=== PATIENT | male | born 1970 | race Caucasian/White ===

== ENCOUNTER 2017-05-02 21:14 | Emergency (ER) | payer OTHER ==
[~2017-05-02] VITALS: Ht 190.5 cm; Wt 134.2 kg
[2017-05-02 21:23] VITALS: TEMP 36.5; Ht 190.5 cm; Wt 134.2 kg
[2017-05-02 22:29] LABS: ALBUMIN 4.2 gm/dl (3.4-5.0); CALCIUM 9.1 mg/dl (8.5-10.1); CREATININE 1.36 mg/dl (0.60-1.40); POTASSIUM 3.9 mmol/L (3.5-5.1)
[2017-05-02 22:35] LABS: TOTAL PROTEIN 8.4 gm/dl (6.4-8.2)
[2017-05-02 22:50] LABS: HEMATOCRIT 47.3 % (42-52); HEMOGLOBIN 16.4 g/dL (14.0-18.0); MEAN CELL VOLUME 85.4 fL (80-100); MEAN CORPUSCULAR HEMOGLOBIN 29.6 pg (25-34); MEAN CORPUSCULAR HGB CONC 34.7 g/dl (32-36); MEAN PLATELET VOLUME 10.5 fL (7.4-10.4); PLATELET COUNT 57 K/uL (130-400); RED CELL DISTRIBUTION WIDTH CV 13.9 % (11.5-14.5); RED CELL DISTRIBUTION WIDTH SD 42.7 fL (36.4-46.3); WHITE BLOOD COUNT 3.83 K/uL (4.8-10.8)
--- NOTE | 2017-05-02 22:59 | DIAGNOSTIC IMAGING REPORT ---
ABDOMINAL WALL ULTRASOUND CLINICAL HISTORY: Umbilical mass. Possible hernia COMPARISON STUDY: No previous studies for comparison. FINDINGS: Ultrasonographic evaluation reveals a large umbilical hernia with a neck measuring 2.6 cm. There is fluid present within the hernia sac. No peristalsis within the hernia sac was visualized. There were however tubular structures raising the possibility that this hernia contains bowel. CT scanning might be considered in follow-up. IMPRESSION: 1. Large umbilical hernia with a neck measuring 2.6 cm 2. It is difficult to determine the hernia contains only fat or fat and bowel. 3. There is a small amount of fluid within the hernia sac 4. CT scanning could be used to differentiate a fat-containing hernia from a bowel containing hernia. Electronically signed by: Jay Liao M.D. 05/02/2017 10:57 PM Dictated Date/Time: 05/02/2017 10:55 PM
[2017-05-02] MEDS ORDERED: OMEP20TA PO (23:24)
[2017-05-02] MEDS ORDERED: OPTIRAY 320 IV PRN (23:30)
[2017-05-03 01:07] VITALS: BP 151/86; PULSE 68; O2SAT 97
--- NOTE | 2017-05-03 03:32 | EMERGENCY ROOM VISIT NOTE ---
History First contact with patient: 21:31 Chief Complaint: ABDOMINAL PAIN Stated Complaint: STOMACH AND BELLY BUTTON HARD AND PAINFUL Nursing Triage Summary: Pt states around 630pm he was laying down and he got a pain in his belly button. When he sat up he noticed his belly button felt hard. Continues to have pain around umbilicus. History of Present Illness The patient is a 47 year old male who presents to the Emergency Room with complaints of periumbilical pain and bulge tonight after he was lying on his belly and got up. No history of hernias that he knows of. Patient states he does not normally have a bulge to his umbilicus. He describes the pain as aching, ranging in severity 7 out of 10 with palpation and better with rest. Patient denies chest pain, dyspnea, fever, chills, nausea, vomiting, diarrhea, flank pain, back pain, urinary symptoms, genitalia pain. No prior abdominal surgeries. Patient does a lot of heavy lifting at work. Review of Systems An 10 system review of systems was completed with positives and pertinent negatives listed in the HPI. Past Medical/Surgical History Hypertension Social History Smoking Status: Never Smoker Smokeless Tobacco Use: No Drug Use: none Marital Status: in relationship Occupation Status: employed Current/Historical Medications Scheduled PRN Omeprazole (Omeprazole), 1 TAB PO DAILY PRN for Heartburn Physical Exam Vital Signs Date Time Temp Pulse Resp B/P (MAP) Pulse Ox O2 Delivery O2 Flow Rate FiO2 05/03/17 01:07 68 18 151/86 97 05/02/17 23:44 73 16 143/90 96 Room Air 05/02/17 21:59 71 05/02/17 21:56 90 18 145/89 98 Room Air 05/02/17 21:23 36.5 81 18 170/116 98 Room Air Physical Exam VITALS: Vitals are noted on the nurse's note and reviewed by myself. Vital signs hypertensive. GENERAL: Pleasant male, in no acute distress, nondiaphoretic, well-developed well-nourished. SKIN: The skin was without rashes, erythema, edema, or bruising. There is no tenting of the skin. Capillary reflex less than 2 seconds. HEAD: Normocephalic atraumatic. EARS: External auditory canals clear, tympanic membranes pearly bautista without erythema or effusion bilaterally. EYES: Pupils equal round and reactive to light and accommodation. Conjunctivae without injection, sclerae without icterus. Extraocular movements intact. NOSE: Patent, turbinates without inflammation or discharge. MOUTH: Mucous membranes moist. Pharynx without erythema or exudate. Uvula midline. Airway patent. Tongue does not deviate. NECK: Supple without nuchal rigidity. No lymphadenopathy. No thyromegaly. Cervical spine is nontender. No JVD. HEART: Regular rate and rhythm without murmurs gallops or rubs. LUNGS: Clear to auscultation bilaterally without wheezes, rales or rhonchi. No retractions or accessory muscle use. ABDOMEN: Positive bowel sounds x 4. Normal tympanic percussion. Soft, umbilical hernia present easily reduced with gentle pressure by myself that is tender to palpation, without masses or organomegaly. Gunter sign negative. No guarding or rebound tenderness. No CVA tenderness MUSCULOSKELETAL: No muscle atrophy, erythema, or edema noted. NEURO: Patient was alert and oriented to person place and time. Normal sensation to light and sharp touch. No focal neurological deficits. Medical Decision & Procedures Laboratory Results 05/02/17 21:50 Red Blood Count 5.54, Mean Corpuscular Volume 85.4, Mean Corpuscular Hemoglobin 29.6, Mean Corpuscular Hemoglobin Concent 34.7, Mean Platelet Volume 10.5 05/02/17 21:50 Test 05/02/17 21:50 White Blood Count 3.83 K/uL (4.8-10.8) Red Blood Count 5.54 M/uL (4.7-6.1) Hemoglobin 16.4 g/dL (14.0-18.0) Hematocrit 47.3 % (42-52) Mean Corpuscular Volume 85.4 fL (80-100) Mean Corpuscular Hemoglobin 29.6 pg (25-34) Mean Corpuscular Hemoglobin Concent 34.7 g/dl (32-36) Platelet Count 57 K/uL (130-400) Mean Platelet Volume 10.5 fL (7.4-10.4) RDW Standard Deviation 42.7 fL (36.4-46.3) RDW Coefficient of Variation 13.9 % (11.5-14.5) Neutrophils % (Manual) 68.8 % Lymphocytes % (Manual) 11.3 % Variant Lymphocytes % (manual) 5.2 % Monocytes % (Manual) 8.7 % Eosinophils % (Manual) 1.7 % Basophils % (Manual) 1.7 % (0-2) Myelocytes % 0.9 % Blast Cells % 1.7 % Neutrophils # (Manual) 2.64 K/uL (1.4-6.5) Total Absolute Neutrophils 2.64 K/uL (1.4-6.5) Lymphocytes # (Manual) 0.43 K/uL (1.2-3.4) Absolute Variant Lymphocytes 0.20 K/uL Total Absolute Lymphocytes 0.63 K/uL (1.2-3.4) Monocytes # (Manual) 0.33 K/uL (0.11-0.59) Eosinophils # (Manual) 0.07 K/uL (0-0.5) Basophils # (Manual) 0.07 K/uL (0-0.2) Myelocytes # 0.03 K/uL (0-0) Blast Cells # 0.07 K/uL (0-0) Platelet Estimate DECREASED Anion Gap 7.0 mmol/L (3-11) Est Creatinine Clear Calc Drug Dose 97.0 ml/min Estimated GFR () 70.3 Estimated GFR (Non- 60.7 BUN/Creatinine Ratio 11.5 (10-20) Calcium Level 9.1 mg/dl (8.5-10.1) Total Bilirubin 1.0 mg/dl (0.2-1) Direct Bilirubin 0.3 mg/dl (0-0.2) Aspartate Amino Transf (AST/SGOT) 67 U/L (15-37) Alanine Aminotransferase (ALT/SGPT) 68 U/L (12-78) Alkaline Phosphatase 74 U/L (45-117) Total Protein 8.4 gm/dl (6.4-8.2) Albumin 4.2 gm/dl (3.4-5.0) Lipase 241 U/L (73-393) ED Course Prior records/ancillary studies reviewed. Triage Nursing notes reviewed. The patient's history was concerning for abdominal pain. Differential diagnosis: Etiologies such as hernia, incarcerated hernia, strain related hernia, appendicitis, diverticulitis, PUD, biliary pathology, UTI, pancreatitis, obstruction, mesenteric ischemia, aortic pathology, infections, inflammatory bowel disease, renal colic, as well as others were entertained. Physical examination findings: As above. ER treatment provided: Hernia was reduced with gentle pressure to the umbilicus region. On reassessment the patient felt better. Diagnostics interpreted by me: The labs revealed stable H&H, thrombocytopenia, blast cells present. No worrisome electrolyte abnormality Imaging studies: CT showed fat filled ventral hernia. splenomegaly and this is read by stat radiology and reviewed by myself [~ rep ct add3]] ABDOMINAL WALL ULTRASOUND CLINICAL HISTORY: Umbilical mass. Possible hernia COMPARISON STUDY: No previous studies for comparison. FINDINGS: Ultrasonographic evaluation reveals a large umbilical hernia with a neck measuring 2.6 cm. There is fluid present within the hernia sac. No peristalsis within the hernia sac was visualized. There were however tubular structures raising the possibility that this hernia contains bowel. CT scanning might be considered in follow-up. IMPRESSION: 1. Large umbilical hernia with a neck measuring 2.6 cm 2. It is difficult to determine the hernia contains only fat or fat and bowel. 3. There is a small amount of fluid within the hernia sac 4. CT scanning could be used to differentiate a fat-containing hernia from a bowel containing hernia. Electronically signed by: Jay Liao M.D. Exam and history seem consistent with umbilical hernia and thrombocytopenia with abnormal smear/ differentiation on CBC. Patient's last CBC was in 2008 that showed thrombocytopenia of 97,000. This is reviewed in the [employer] system. Patient has no known history of cancer. Patient was strongly encouraged and informed to get a bone marrow biopsy for further evaluation workup for his thrombocytopenia and blast cells seen on his CBC tonight that was concerning for possible cancer. Case management will help facilitate follow -up appointment within the next day or 2 with family care for referral to the associate professor of physics. Patient was agreeable treatment plan. He was also encouraged no heavy lifting and to follow-up with surgery for his hernia that was present. Patient was given a work note to avoid heavy lifting. Patient has no known bleeding disorders. He denies excessive alcohol use. No drug use. He did not have an acute abdomen on exam. By the evaluation outlined above emergent etiologies such as appendicitis, diverticulitis, PUD, biliary pathology, UTI, pancreatitis, obstruction, mesenteric ischemia, aortic pathology, infections, inflammatory bowel disease, renal colic, as well as others were deemed relatively unlikely. The pt informed about the findings as listed above. All questions were answered and pleased with the treatment. Return instructions were outlined and the patient was discharged in stable condition. Case reviewed with my attending Referral: The patient was referred back to their primary care physician for follow-up in 24-48 hrs. for a recheck of the current condition. The chart was completed utilizing [employer] Speech voice recognition software. Grammatical errors, random word insertions, pronoun errors, and incomplete sentences are an occassional consequence of this system due to software limitations, ambient noise, and hardware issues. Any formal questions or concerns about the content, text, or information contained within the body of this dictation should be directly addressed to the physician executive marketing assistant for clarification. Medical Decision As above Medication Reconcilliation Current Medication List: was personally reviewed by me Blood Pressure Screening Patient's blood pressure: Elevated blood pressure Blood pressure disposition: Elevated BP felt to be situational Impression Primary Impression: Thrombocytopenia Additional Impression: Ventral hernia Departure Information Dispostion Home / Self-Care Condition GOOD Forms Call Back Authorization, HOME CARE DOCUMENTATION FORM, Work Instructions, Return To Work: 1 day Additional Instructions: Recommend no heavy lifting greater than 20 pounds For the next 2 weeks. IMPORTANT VISIT INFORMATION Patient Instructions Hernia, [facility], Bone Marrow Aspiration and Biopsy Additional Instructions Abdominal wall hernia: Recommend that you do not lift anything heavier than 20 pounds with your hernia present. Recommend you follow-up with the surgeon for further evaluation and treatment for your abdominal wall hernia. Platelets: Your platelet counts are low and you have abnormal cells on your CBC/blood test today. You need to get a bone marrow biopsy. Your family care doctor can help facilitate this. Case management will help facilitate your appointment within the next day or 2 with family care to get a referral to the associate professor of physics. Follow-up with family care in 1-2 days. Return to ER sooner for abdominal pain, fevers, bleeding, worsening signs or symptoms or as needed. Work Instructions Return To Work: 1 day Additional Work Instructions: Recommend no heavy lifting greater than 20 pounds For the next 2 weeks. Problem Qualifiers
--- NOTE | 2017-05-03 07:16 | DIAGNOSTIC IMAGING REPORT ---
CT SCAN OF THE ABDOMEN AND PELVIS WITH IV CONTRAST CLINICAL HISTORY: Generalized abdominal pain. Umbilical hernia. COMPARISON STUDY: Ultrasound of the abdominal wall dated 05/02/2017. TECHNIQUE: Following the IV administration of 93 cc of Optiray 320, CT scan of the abdomen and pelvis is performed from the lung bases to the proximal femora. Images are reviewed in the axial, sagittal, and coronal planes. IV contrast was administered without complication. A dose lowering technique was utilized adhering to the principles of ALARA. CT DOSE: 1504.64 mGy.cm FINDINGS: Lung bases: The heart is normal in size and without pericardial effusion. A small calcified granuloma is seen in the right upper lobe. The lung bases are otherwise clear noting dependent atelectasis. There is a tiny hiatal hernia. Small esophageal varices are suspected. Liver: The contrast-enhanced liver is enlarged, measuring 23.8 cm in length. Liver demonstrates diffusely diminished attenuation consistent with hepatic steatosis. There is no intrahepatic biliary ductal dilatation. The hepatic veins and portal veins are patent. Gallbladder: Unremarkable. Spleen: The spleen is markedly enlarged, measuring 21.3 cm in length. There are perisplenic varices. Pancreas: Unremarkable. Adrenal glands: Unremarkable. Kidneys: The contrast enhanced kidneys demonstrate cortical atrophy and are without hydronephrosis. The kidneys enhance symmetrically. Scattered subcentimeter cortical hypodensities likely represent cysts but are too small for definitive characterization. Abdominal vasculature: The abdominal aorta is normal in course and caliber. Bowel: No bowel obstruction is seen. The appendix is normal as visualized. Peritoneum: There is no intraperitoneal free air or abdominal ascites. There is a large fat-containing umbilical hernia. Lymphadenopathy: None. Pelvic viscera: The bladder, prostate, and seminal vesicles are normal as visualized. Skeletal structures: No lytic or blastic lesions are seen. IMPRESSION: 1. There is a large fat-containing umbilical hernia. No bowel is contained within the hernia sac. 2. Marked splenomegaly. 3. Hepatomegaly and hepatic steatosis. 4. There are perisplenic varices, as well as tiny esophageal varices. Electronically signed by: Ross Rae M.D. 05/03/2017 7:14 AM Dictated Date/Time: 05/03/2017 7:07 AM
== END 2017-05-03 01:09 | disposition home or self-care (01) ==
LOC: C.EDB 21:15 → C.EDC 05-03 01:09
DX: D69.6 Thrombocytopenia, unspecified (principal); K43.9 Ventral hernia without obstruction or gangrene; I10 Essential (primary) hypertension; Z79.899 Other long term (current) drug therapy

== ENCOUNTER 2017-05-10 00:18 | Emergency (ER) | payer OTHER ==
[~2017-05-10] VITALS: Ht 190.5 cm; Wt 133.5 kg
[~2017-05-10 00:18] MED LIST: OMEP20TA PO
[2017-05-10 00:29] VITALS: Ht 190.5 cm; Wt 133.5 kg
[2017-05-10] MEDS ORDERED: b/p med PO (00:48)
[2017-05-10] MEDS ORDERED: ONDANSETRON INJ 2 MG/ML 2 ML VIAL IV STA (00:52)
[2017-05-10] MEDS ORDERED: SODIUM CHLORIDE 0.9% 1000ML 1,000 ML IV STA (00:52)
[2017-05-10 01:03] LABS: HEMATOCRIT 50.9 % (42-52); HEMOGLOBIN 18.3 g/dL (14.0-18.0); MEAN CORPUSCULAR HEMOGLOBIN 30.6 pg (25-34); RED CELL DISTRIBUTION WIDTH CV 14.2 % (11.5-14.5); RED CELL DISTRIBUTION WIDTH SD 43.1 fL (36.4-46.3)
[2017-05-10 01:08] VITALS: TEMP 36.8
[2017-05-10 01:16] LABS: ALBUMIN 4.6 gm/dl (3.4-5.0); CALCIUM 9.8 mg/dl (8.5-10.1); CREATININE 1.51 mg/dl (0.60-1.40); POTASSIUM 3.6 mmol/L (3.5-5.1)
[2017-05-10 01:18] LABS: TOTAL PROTEIN 9.3 gm/dl (6.4-8.2)
--- NOTE | 2017-05-10 01:20 | EMERGENCY ROOM VISIT NOTE ---
History Report prepared by Jazmín: Diamond Baig Under the Supervision of: Dr. Abiel Navarrete M.D. First contact with patient: 00:47 Chief Complaint: ABDOMINAL PAIN Stated Complaint: STOMACH,HERNIA FROM LAST WEEK History of Present Illness The patient is a 47 year old male who presents to the Emergency Room with complaints of worsening abdominal pain starting prior to arrival. The patient states that he was here last week with an enlarged spleen, a low platelet count , and a umbilical hernia. He reports that he has been doing okay, but this afternoon he coughed and his belly button got hard again. He states that he was in moderate pain, but was fine. He reports that he laid down to go to sleep tonight and couldn't. He states that when he got up, he had extreme pain. The patient complains of vomiting when he arrived at the ED. The patient denies the use of alcohol, swelling in his legs, rashes, and bruising. Source of History: patient Onset: prior to arrival Position: abdomen Symptom Intensity: extreme Quality: other (hard) Timing: worsening Associated Symptoms: + vomiting, No rash Note: The patient denies leg swelling and bruising. Review of Systems See HPI for pertinent positives & negatives. A total of 10 systems reviewed and were otherwise negative. Past Medical & Surgical Medical Problems: (1) HTN (hypertension) (2) Umbilical hernia Family History Patient reports no known family medical history. Social History Smoking Status: Never Smoker Drug Use: none Marital Status: in relationship Housing Status: lives alone Occupation Status: employed Current/Historical Medications Scheduled [b/p med], 1 DOSE PO DIRECTED Scheduled PRN Omeprazole (Omeprazole), 1 TAB PO DAILY PRN for Heartburn Allergies Coded Allergies: Amoxicillin (Verified Allergy, Intermediate, RASH, 05/10/17) Physical Exam Vital Signs Date Time Temp Pulse Resp B/P (MAP) Pulse Ox O2 Delivery O2 Flow Rate FiO2 05/10/17 03:42 88 18 128/71 97 05/10/17 02:08 82 18 134/84 96 Room Air 05/10/17 01:08 36.8 71 18 143/89 93 Room Air 05/10/17 00:29 99 19 165/116 96 Room Air Physical Exam GENERAL: Patient is nauseous appearing and in mild distress. Uncomfortable appearing. EYES: No scleral icterus, unremarkable pupils. ENT: Mucous membranes moist, no nasal congestion. NECK: No masses appreciated, no meningismus, trachea is midline. RESPIRATORY: No dyspnea. Clear to auscultation and equal bilaterally. No wheeze , no rhonchi. CARDIOVASCULAR: Regular rate and rhythm. No murmurs, rubs, gallops appreciated. GASTROINTESTINAL: Abdomen soft, nontender, no peritonitis. Bowel sounds positive. No masses appreciated. Moderate umbilical hernia which was easily reduced. No erythema, no crepitus. BACK: No midline tenderness, no CVA tenderness EXTREMITIES: Normal motion all extremities, no cyanosis, no edema. NEUROLOGIC: Alert and oriented, no acute motor or sensory deficits, no focal weakness, cranial nerves grossly intact. SKIN: No rash, no jaundice, no diaphoresis. Medical Decision & Procedures ER Provider Diagnostic Interpretation: Radiology results and stated below per my review and radiologist interpretation: 3 VIEW ABDOMINAL OBSTRUCTION SERIES: The results were interpreted by me. Dilated loop of small bowel in mid-left abdomen. No free air appreciated. CT ABDOMEN & PELVIS With Contrast: Large fat-containing umbilical hernia. no bowel is seen within the hernia sac. No bowel obstruction. Mildly distended loops of small bowel which are fluid-filled and slightly hyperemic. Likely represents gastroenteritis. Appendix is normal. No bowel wall thickening. Radiologist: Michael Patten MD Study ready at 02:10 and initial results transmitted at 02:12. Laboratory Results 05/10/17 00:45 Red Blood Count 5.99, Mean Corpuscular Volume 85.0, Mean Corpuscular Hemoglobin 30.6, Mean Corpuscular Hemoglobin Concent 36.0, Mean Platelet Volume 10.3, Neutrophils (%) (Auto) 69.4, Lymphocytes (%) (Auto) 20.7, Monocytes (%) (Auto) 5.3, Eosinophils (%) (Auto) 3.1, Basophils (%) (Auto) 0.9, Neutrophils # (Auto) 4.86, Lymphocytes # (Auto) 1.45, Monocytes # (Auto) 0.37, Eosinophils # (Auto) 0.22, Basophils # (Auto) 0.06 05/10/17 00:45 Test 05/10/17 00:30 05/10/17 00:45 Urine Color DK YELLOW Urine Appearance CLEAR (CLEAR) Urine pH 7.0 (4.5-7.5) Urine Specific [place] 1.024 (1.000-1.030) Urine Protein NEG (NEG) Urine Glucose (UA) NEG (NEG) Urine Ketones NEG (NEG) Urine Occult Blood NEG (NEG) Urine Nitrite NEG (NEG) Urine Bilirubin NEG (NEG) Urine Urobilinogen NEG (NEG) Urine Leukocyte Esterase NEG (NEG) Urine WBC (Auto) 1-5 /hpf (0-5) Urine RBC (Auto) 0-4 /hpf (0-4) Urine Hyaline Casts (Auto) 1-5 /lpf (0-5) Urine Epithelial Cells (Auto) 5-10 /lpf (0-5) Urine Bacteria (Auto) NEG (NEG) White Blood Count 7.00 K/uL (4.8-10.8) Red Blood Count 5.99 M/uL (4.7-6.1) Hemoglobin 18.3 g/dL (14.0-18.0) Hematocrit 50.9 % (42-52) Mean Corpuscular Volume 85.0 fL (80-100) Mean Corpuscular Hemoglobin 30.6 pg (25-34) Mean Corpuscular Hemoglobin Concent 36.0 g/dl (32-36) Platelet Count 83 K/uL (130-400) Mean Platelet Volume 10.3 fL (7.4-10.4) Neutrophils (%) (Auto) 69.4 % Lymphocytes (%) (Auto) 20.7 % Monocytes (%) (Auto) 5.3 % Eosinophils (%) (Auto) 3.1 % Basophils (%) (Auto) 0.9 % Neutrophils # (Auto) 4.86 K/uL (1.4-6.5) Lymphocytes # (Auto) 1.45 K/uL (1.2-3.4) Monocytes # (Auto) 0.37 K/uL (0.11-0.59) Eosinophils # (Auto) 0.22 K/uL (0-0.5) Basophils # (Auto) 0.06 K/uL (0-0.2) RDW Standard Deviation 43.1 fL (36.4-46.3) RDW Coefficient of Variation 14.2 % (11.5-14.5) Immature Granulocyte % (Auto) 0.6 % Immature Granulocyte # (Auto) 0.04 K/uL (0.00-0.02) Platelet Estimate DECREASED Red Blood Cell Morphology Unremarkable Anion Gap 7.0 mmol/L (3-11) Est Creatinine Clear Calc Drug Dose 87.1 ml/min Estimated GFR () 62.0 Estimated GFR (Non- 53.5 BUN/Creatinine Ratio 11.1 (10-20) Calcium Level 9.8 mg/dl (8.5-10.1) Total Bilirubin 1.5 mg/dl (0.2-1) Direct Bilirubin 0.3 mg/dl (0-0.2) Aspartate Amino Transf (AST/SGOT) 61 U/L (15-37) Alanine Aminotransferase (ALT/SGPT) 69 U/L (12-78) Alkaline Phosphatase 86 U/L (45-117) Total Protein 9.3 gm/dl (6.4-8.2) Albumin 4.6 gm/dl (3.4-5.0) Lipase 262 U/L (73-393) Laboratory results as reviewed by me. Medications Administered Medications (Trade) Dose Ordered Sig/Brielle Route Start Time Stop Time Status Last Admin Dose Admin Sodium Chloride 1,000 ml @ 999 mls/hr Q1H1M STAT IV 05/10/17 00:52 05/10/17 01:52 DC 05/10/17 01:06 999 MLS/HR Ondansetron HCl (Zofran Inj) 4 mg NOW STAT IV 05/10/17 00:52 05/10/17 00:53 DC 05/10/17 01:05 4 MG ED Course 0048: The patient was evaluated in room B12B. A complete history and physical exam was performed. 0052: Ordered Zofran Inj 4 mg IV, NSS 1000 ml @ 999 mls/hr IV. 0118: I reevaluated the patient and he is just getting back from x-ray. 0130: I discussed the patient's case with Dr. Azul - General Surgeon. He states that he needs the repeat CT and then they will come look at him. 0134: I reevaluated the patient and he is no longer nauseous. His pain has improved greatly. He is agreeable to the CT. 0230: I discussed the patient's case with Dr. Azul - General Surgeon. He will come evaluate the patient. 0309: Dr. Azul - General Surgery saw the patient and talked to him. He states that the patient would like to go home. I will write the discharge instructions and discharge the patient. 0327: Reevaluated the patient. Discussed results and discharge instructions: He verbalized understanding and agreement. The patient is ready for discharge. 0330: Ordered Ondansetron HCl 1 homepack PO. Medical Decision Differential: Gastroenteritis, Food Borne, Esophageal Perforation, , Electrolyte Abnormality, Dehydration, Intraabdominal Infection, UTI/ Pyelonephritis, Bowel Obstruction, Biliary Pathology, amongst other pathology entertained. 47 yr old male arrives for second time in last week with abdominal pain at sight of umbilicus. On arrival exam and story consistent with obstruction from incarcerated hernia. I was furnately able to reduce hernia with minimal difficulty. Xrays concerning for some dilated bowel and thus discussed with gen surg who advised CT repeat. CT with hyperemic bowel which I feel likely if from recent reduction as prior to this had not been having gastroenteritis symptoms. Reviewed with Gen Surg who evaluated patient and feel this can be continued as an outpatient. Labs with improvement in his Plts though this is still concern for some type of hematopathic issues. He may need to have Hematology evaluation though currently is having PCP run point which seems reasonable. Already following with Gen Surg as outpatient as well. Reviewed findings again with patient, how to reduce hernia at home if possible, symptoms requiring immediate return. He is comfortable with this plan. Aware we are always here if worsening or other concerns. Medication Reconcilliation Current Medication List: was personally reviewed by me Blood Pressure Screening Patient's blood pressure: Normal blood pressure Blood pressure disposition: Did not require urgent referral Consults Time Called: 0129 Consulting Physician: Dr. Azul - General Surgeon Returned Call: 0130 I discussed the patient's case with Dr. Alcantar - General Christopher. He states that he needs the repeat CT and then they will come look at him. Additional Consults: Time Called: 0227 Consulted Physician: Dr. Azul - General Surgeon Returned Call: 0230 Additional Comments: I discussed the patient's case with Dr. Alcantar - General Christopher. He will come evaluate the patient Impression Primary Impression: Umbilical hernia Additional Impression: Thrombocytopenia Scribe Attestation The scribe's documentation has been prepared under my direction and personally reviewed by me in its entirety. I confirm that the note above accurately reflects all work, treatment, procedures, and medical decision making performed by me. Departure Information Dispostion Home / Self-Care Referrals Mikey Blood M.D. (PCP) Forms Call Back Authorization, HOME CARE DOCUMENTATION FORM, IMPORTANT VISIT INFORMATION Patient Instructions My [facility] Additional Instructions You lab work is mildly improved today from previous but it is still concerning that your platelets are low. It is advised you see a Psychologist Educational as an outpatient. Call your PCP in the morning to make sure this is set up as well as to set up urgent outpatient Surgical Evaluation. Return if vomiting, worsening pain, fevers, blood in stool or other concerns. We are always here to help. If Hernia Returns lay flat and while taking a deep breath press gently but firmly on to hernia to return it to place. If severe pain and unable to reduce it return for further evaluation. Problem Qualifiers
[2017-05-10 01:42] LABS: BASO % 0.9 %; BASO ABS # 0.06 K/uL (0-0.2); EOS % 3.1 %; EOS ABS # 0.22 K/uL (0-0.5); IG# 0.04 K/uL (0.00-0.02); LYMPH % 20.7 %; LYMPH ABS # 1.45 K/uL (1.2-3.4); MEAN PLATELET VOLUME 10.3 fL (7.4-10.4); MONO % 5.3 %; MONO ABS # 0.37 K/uL (0.11-0.59); NEUT % 69.4 %; NEUT ABS # 4.86 K/uL (1.4-6.5); PLATELET COUNT 83 K/uL (130-400)
[2017-05-10] MEDS ORDERED: OPTIRAY 320 IV PRN (02:00)
[2017-05-10] MEDS ORDERED: ONDANSETRON HOME PACK 4MG OD TAB PO ONE (03:30)
--- NOTE | 2017-05-10 03:40 | Surgery Consultation ---
Consultation Date of Consultation: May 10, 2017. Attending Physician: Reason for Consultation: umbilical hernia History of Present Illness Patient is a 47M who presents to the ED this evening due to abdominal pain which started around 1800 tonight. Patient reports it got worse around 2300. Reports the pain as sharp and located at his umbilicus. He was seen in the ED here on 05/02/17 for a similar complaint where a large fat containing umbilical hernia was found. He was discharged home with instructions to follow-up with Dr. Sow at [facility] who he saw this past . Of note at his first ED visit he had 57k platelets and low white count with myelocytes and blast cells. Patient denies Hx of leukemia. He does report some nausea/vomiting on arrival to the ED tonight which has since resolved. Denies hematemesis. His hernia was reduced in the ED at this visit. No White count. Platelets improved at 83k. CT shows large fat containing umbilical hernia similar to prior study with mildly distended loops of small bowel, fluid filled , slightly hyperemic. Patient denies fever/chills. He reports he has been fighting off a cold for about a week now. Denies trouble urinating or moving his bowels. Denies use of blood thinning or anticoagulant medications. Denies history of abdominal surgeries. Denies problems with anesthesia in the past. Past Medical/Surgical History Medical Problems: (1) Thrombocytopenia Status: Acute (2) Ventral hernia Status: Acute Family History Patient reports no known family medical history. Social History Smoking Status: Never Smoker Drug Use: none Marital Status: in relationship Housing Status: lives alone Occupation Status: employed Allergies Coded Allergies: Amoxicillin (Verified Allergy, Intermediate, RASH, 05/10/17) Home Medications Scheduled [b/p med], 1 DOSE PO DIRECTED Scheduled PRN Omeprazole (Omeprazole), 1 TAB PO DAILY PRN for Heartburn Current Inpatient Medications Current Inpatient Medications Medications (Trade) Dose Ordered Sig/Brielle Route Start Time Stop Time Status Last Admin Dose Admin Ioversol (Optiray 320) 100 ml UD PRN IV 05/10/17 02:00 05/14/17 01:59 Review of Systems Constitutional: No fever, No chills Respiratory: No shortness of breath Cardiovascular: No chest pain Abdomen: + pain (umbilicus), No nausea, No vomiting, No diarrhea, No constipation Genitourinary - Male: No hematuria, No dysuria Physical Exam Date Time Temp Pulse Resp B/P (MAP) Pulse Ox O2 Delivery O2 Flow Rate FiO2 05/10/17 02:08 82 18 134/84 96 Room Air 05/10/17 01:08 36.8 71 18 143/89 93 Room Air 05/10/17 00:29 99 19 165/116 96 Room Air General Appearance: WD/WN, no apparent distress Head: normocephalic, atraumatic ENT: hearing grossly normal Respiratory/Chest: no respiratory distress, no accessory muscle use Abdomen/GI: soft, no organomegaly, no pulsatile mass, + tenderness (Umbilical TTP mild) Neurologic/Psych: alert, normal mood/affect, oriented x 3 Skin: normal color, warm/dry Laboratory Results Last 24 Hours Test 05/10/17 00:30 05/10/17 00:45 05/10/17 03:18 Urine Color DK YELLOW Urine Appearance CLEAR Urine pH 7.0 Urine Specific [place] 1.024 Urine Protein NEG Urine Glucose (UA) NEG Urine Ketones NEG Urine Occult Blood NEG Urine Nitrite NEG Urine Bilirubin NEG Urine Urobilinogen NEG Urine Leukocyte Esterase NEG Urine WBC (Auto) 1-5 /hpf Urine RBC (Auto) 0-4 /hpf Urine Hyaline Casts (Auto) 1-5 /lpf Urine Epithelial Cells (Auto) 5-10 /lpf Urine Bacteria (Auto) NEG White Blood Count 7.00 K/uL Red Blood Count 5.99 M/uL Hemoglobin 18.3 g/dL Hematocrit 50.9 % Mean Corpuscular Volume 85.0 fL Mean Corpuscular Hemoglobin 30.6 pg Mean Corpuscular Hemoglobin Concent 36.0 g/dl Platelet Count 83 K/uL Mean Platelet Volume 10.3 fL Neutrophils (%) (Auto) 69.4 % Lymphocytes (%) (Auto) 20.7 % Monocytes (%) (Auto) 5.3 % Eosinophils (%) (Auto) 3.1 % Basophils (%) (Auto) 0.9 % Neutrophils # (Auto) 4.86 K/uL Lymphocytes # (Auto) 1.45 K/uL Monocytes # (Auto) 0.37 K/uL Eosinophils # (Auto) 0.22 K/uL Basophils # (Auto) 0.06 K/uL RDW Standard Deviation 43.1 fL RDW Coefficient of Variation 14.2 % Immature Granulocyte % (Auto) 0.6 % Immature Granulocyte # (Auto) 0.04 K/uL Platelet Estimate DECREASED Red Blood Cell Morphology Unremarkable Sodium Level 137 mmol/L Potassium Level 3.6 mmol/L Chloride Level 100 mmol/L Carbon Dioxide Level 30 mmol/L Anion Gap 7.0 mmol/L Blood Urea Nitrogen 17 mg/dl Creatinine 1.51 mg/dl Est Creatinine Clear Calc Drug Dose 87.1 ml/min Estimated GFR () 62.0 Estimated GFR (Non- 53.5 BUN/Creatinine Ratio 11.1 Random Glucose 103 mg/dl Calcium Level 9.8 mg/dl Total Bilirubin 1.5 mg/dl Direct Bilirubin 0.3 mg/dl Aspartate Amino Transf (AST/SGOT) 61 U/L Alanine Aminotransferase (ALT/SGPT) 69 U/L Alkaline Phosphatase 86 U/L Total Protein 9.3 gm/dl Albumin 4.6 gm/dl Lipase 262 U/L Assessment & Plan Large fat containing umbilical hernia, reducible Case discussed with Dr. Mills and Dr. Llanes. Pain controlled, hernia reduced, N/V resolved. No emergent surgical intervention indicated at this time. Patient expressed his desire to go home. Patient given instructions for close f/u with his PCP and [facility] General Surgery. Instructions will be given for follow-up with [facility] heme/onc for further evaluation of thrombocytopenia. Patient advised to return if his symptoms persist, worsen, or if he develops any nausea/vomiting/constipation/fever/chills, redness/swelling/increased pain at his hernia site. Please contact with questions or concerns.
[2017-05-10 03:42] VITALS: BP 128/71; PULSE 88; O2SAT 97
--- NOTE | 2017-05-10 07:42 | DIAGNOSTIC IMAGING REPORT ---
PA CHEST WITH ABDOMINAL SERIES CLINICAL HISTORY: Vomiting. Umbilical hernia. FINDINGS: A PA chest radiograph is obtained. The cardiomediastinal silhouette is unremarkable. There are low lung volumes with mild elevation of the right hemidiaphragm. No airspace consolidation or pleural effusion is identified. No pneumothorax is seen. The bony thorax is grossly intact. Supine and erect abdominal radiographs are compared to study correlated with abdominal CT dated 05/02/2017. There is no radiographic evidence of bowel obstruction. Scattered air-fluid levels are noted in the left upper quadrant. No evidence of intraperitoneal free air is seen. The spleen is enlarged. There are no abnormal abdominal calcifications. The lumbosacral spine and bony pelvis appear intact. IMPRESSION: 1. Low lung volumes with no active disease in the chest. 2. There is no radiographic evidence of bowel obstruction. 3. Scattered air-fluid levels are noted in the left upper quadrant. This may represent a nonspecific enteritis. Clinical correlation will be required. Electronically signed by: Ross Rae M.D. 05/10/2017 7:41 AM Dictated Date/Time: 05/10/2017 7:39 AM
--- NOTE | 2017-05-10 08:32 | DIAGNOSTIC IMAGING REPORT ---
ABD/PELVIS IV CONTRAST ONLY CLINICAL HISTORY: 47 years-old Male presenting with vomiting, umbilical hernia just reduced, diffuse abdominal pain. TECHNIQUE: Multidetector CT of the abdomen and pelvis was performed after the administration of intravenous contrast. IV contrast: 93 mL of Optiray 320. A dose lowering technique was used consistent with the principles of ALARA (as low as reasonably achievable). COMPARISON: 05/02/2017. CT DOSE (mGy.cm): The estimated cumulative dose is 1589.32 mGy.cm. FINDINGS: [facility] topogram: Unremarkable. Lung bases: Minimal basilar opacities, likely atelectasis. Cystic change with subpleural reticulation in the anterior middle lobe suggests chronic fibrotic changes. Normal heart size. Coronary artery calcification. No pericardial or pleural effusion. Liver: Enlarged. Suggestion of hepatic steatosis. No liver lesion. Patent hepatic vasculature. Biliary: No intrahepatic or extrahepatic biliary ductal dilatation. Normal gallbladder. Pancreas: Normal. Spleen: Enlarged, measuring 21.3 cm in maximal sagittal dimension. Adrenal glands: Normal. Kidneys and ureters: Several hypodensities in the left kidney, likely simple cysts. No nephrolithiasis. No hydronephrosis. Bladder: Incompletely evaluated secondary to underdistention. Pelvic organs: Prostate enlargement likely secondary to benign prostatic hyperplasia. Bowel: Fluid noted in the colon suggesting a diarrheal state. No significant colonic wall thickening or pericolonic inflammatory change. The appendix is normal. Fluid also noted throughout the small bowel. More proximal small bowel is mildly distended, though there is no convincing evidence of bowel obstruction. Peritoneal cavity: No free fluid or intraperitoneal gas. Lymph nodes: No enlarged lymph nodes in the abdomen or pelvis. Vasculature: Aorta and IVC patent and normal in caliber. Prominent perisplenic varices as well as a few para esophageal/esophageal varices at the gastroesophageal junction. Evidence of splenorenal shunting. Abdominal wall: Bilateral gynecomastia. Prominent fat-containing umbilical hernia, which now contains fluid. The fat is not infiltrated. No surrounding inflammatory change. No bowel contained within the hernia sac. Musculoskeletal: Normal. IMPRESSION: 1. Small amount of fluid is now associated with the prominent fat-containing umbilical hernia. No infiltration of the fat within the hernia sac or surrounding inflammatory change to suggest strangulation, though the presence of fluid is equivocal for this diagnosis. 2. Fluid noted throughout the bowel, including the colon, consistent with a diarrheal state. 3. Splenomegaly and varices suggestive of portal hypertension, however, no danuta evidence of cirrhosis. 4. Hepatomegaly and hepatic steatosis. Electronically signed by: Reinier Stein M.D. 05/10/2017 8:31 AM Dictated Date/Time: 05/10/2017 7:40 AM
== END 2017-05-10 03:42 | disposition home or self-care (01) ==
LOC: C.EDB 00:19
DX: K42.9 Umbilical hernia without obstruction or gangrene (principal); D69.6 Thrombocytopenia, unspecified; I10 Essential (primary) hypertension; Z88.0 Allergy status to penicillin

== ENCOUNTER 2023-08-26 14:56 | Inpatient (IN) ==
--- NOTE | 2023-08-26 15:35 | XRay Report ---
SINGLE VIEW CHEST CLINICAL HISTORY: Generalized weakness FINDINGS: A PA chest radiograph is compared to study dated 09/10/2022. The cardiomediastinal silhouette is unremarkable. There is chronic elevation of the right hemidiaphragm and mild bibasilar atelectasi s. The lungs and pleural spaces are otherwise clear. No pneumothorax is seen. The bony thorax is lorenza sly intact. IMPRESSION: No active disease in the chest. ACT 112: Negative or not required by law. Electronically signed by: Ross Rae M.D. 08/26/2023 3:33 PM
--- NOTE | 2023-08-26 16:14 | Electrocardiogram Report ---
Test Reason : Blood Pressure : / mmHG Vent. Rate : 074 BPM Atrial Rate : 074 BPM P-R Int : 196 ms QRS Dur : 098 ms QT Int : 398 ms P-R-T Axes : 019 -23 009 degrees QTc Int : 441 ms Normal sinus rhythm Moderate voltage criteria for LVH, may be normal variant ( R in aVL ) Borderline ECG When compared with ECG of 10-SEP-2022 15:21, No significant change was found Confirmed by Jamal Nieto ([id number]) on 08/26/2023 4:14:16 PM Referred By: Confirmed By:Jamal Nieto
--- NOTE | 2023-08-26 16:29 | Emergency Department Note ---
Impression & Plan Pancytopenia, HARRIS (nonalcoholic steatohepatitis), Neutropenia ED Provider Note NAME: MARLEN MARISCAL AGE: 53 SEX: Male INFORMANT: Patient and ED PROVIDER(S): Farhan Herrera MD CHIEF COMPLAINT: Abnormal labs PLAN: Disposition: Admitted Outpatient prescription management: none Referral: None MEDICAL DECISION MAKING: Patient presented with concerns about low platelet count. Labs were checked. Patient benign abdominal examination. No active bleeding at this time. Given the fact that he had complaints of a headache albeit extremely minor CT imaging was performed. CT imaging was negative for acute bleed. Patient also noted some back discomfort that seem to be musculoskeletal given his lifting but CT imaging was performed as well. Negative. Patient had leukopenia, anemia, and thrombocytopenia with neutropenia on his CBC. Minimal elevation of LFTs. Not significantly different than prior given the review of his prior LFTs. Discussed case with Dr. Knox of [facility] hematology. Reviewing his prior lab records from last year with him he suspected this could be related to HARRIS and its complications, notably splenomegaly. Patient is at risk for bleeding but is not currently bleeding at this time. Did not recommend Neupogen nor platelet transfusion. Develop additional workup in the hospital is appropriate to expeditiously address these issues as the patient has now reached the point of severe neutropenia as well as very concerning thrombocytopenia. Patient and significant other in agreement. Consultation was made to [facility] hospitalist service. Patient was evaluated in the ER and admitted for further management. In order to help with the patient's workup we did discuss CT imaging of the abdomen pelvis and I did order this for the admitting team. I also placed patient on neutropenic precautions. I refer you to the EMR for further details. Care/management discussed with: community affairs manager Level of care consideration(s): After review of the information above and other included data, I feel the patient requires escalation of care to admission. Triage Nursing notes: reviewed and agree them. Vital Signs: reviewed and remarkable for no significant abnormalities Additional History obtained from: none Chronic Medical/Social Conditions affecting care: Harris Prior/ Outside/ External records reviewed: Laboratory records from last year reviewed. Patient had mild anemia with hemoglobin of 12. Platelet count was 51. Differential Diagnosis: Complications of HARRIS, marrow failure, infection, dehydration, metabolic abnormality, hypo/hyperglycemia, electrolyte disturbance, anemia, hypoxia, cardiac sources, intracerebral event, toxicologic, neurologic, as well as other pathologies. Diagnostics, independently interpreted by me: ECG: Twelve-lead ECG was normal sinus rhythm at [address] elevation or depression. Cardiac Monitoring: Cardiac monitoring ordered by me: The patient was placed on continuous cardiac monitoring and observed. It revealed a normal sinus rhythm at 74 beats per minute without ectopy or evidence of dysrhythmia. Medical decision rules: none Imaging studies: Head CT: A noncontrast CT scan of the head was performed and was negative for tumor, fracture, intracranial hemorrhage, or other acute pathology. I refer you to the EMR for further details. HPI: 53 year old Male arrives for evaluation of low platelet count. This started about 5-6 years ago and is worsened over last 4 weeks. Referred to ER for evaluation. The patient also notes the following associated symptoms, fatigue, dizzy, slight headache, confusion, back pain, leg swelling, aches and pains that are generalized. The patient has taken no medication for relieving factors. Current pain is rated as 8/10. Pt denies LOC, fevers, chills, diaphoresis, visual changes, neck pain, chest pain, breathing difficulties, nausea, vomiting, abdominal pain, melena, hematochezia, urinary symptoms, numbness, weakness, lymphadenopathy, rash, or other complaints. PAST MEDICAL HISTORY: See Below, HARRIS PAST SURGICAL HISTORY: See Below, SOCIAL HISTORY: See Below, HOME MEDICATIONS: See Below ALLERGIES: See Below VITALS: See Below PHYSICAL EXAMINATION: GENERAL: Awake, tired-appearing, in no distress HENT: Normocephalic, atraumatic. Oropharynx unremarkable. EYES: Normal conjunctiva. Sclera non-icteric. NECK: Inspection normal. Non-tender. Supple. No nuchal rigidity. FROM. No masses. RESPIRATORY: Clear to auscultation. No wheezes. No rales. Normal respiratory effort. CARDIAC: Normal rate. Normal rhythm. No murmurs. No rubs. Extremities warm and well perfused. Pulses equal. No JVD. GI: Soft, non-distended. No tenderness to palpation. No rebound or guarding. No masses. RECTAL: Deferred. MUSCULOSKELETAL: Atraumatic. Chest examination reveals no tenderness. The back is symmetrical on inspection without obvious abnormality. There is no CVA tenderness to palpation. No joint edema. LOWER EXTREMITIES: Calves are equal size bilaterally and non-tender. 2+ edema. No discoloration. NEURO: Normal sensorium. No sensory or motor deficits noted. SKIN: No rash or jaundice noted. PROCEDURES: none CRITICAL CARE: none OBSERVATION NOTE: none Past Med/Surg History Problem List (Updated 08/26/23 @ 20:30 by Farhan Herrera MD) Neutropenia (Acute) HARRIS (nonalcoholic steatohepatitis) (Acute) Pancytopenia (Acute) Umbilical hernia Thrombocytopenia (Acute) HTN (hypertension) Ventral hernia (Acute) Medical History HTN (hypertension) Thrombocytopenia Umbilical hernia Ventral hernia Social History Smoking Status: Never smoker Preferred Language: Kiswahili Feels Safe at Home: Yes Allergies Allergies Allergy/AdvReac Type Severity Reaction Status Date / Time amoxicillin Allergy Intermediate RASH Verified 09/10/22 16:42 Home Meds Home Medications Medication Instructions Recorded Confirmed acetaminophen 500 mg tablet 1,000 mg PO Q6H PRN Pain 09/10/22 08/26/23 (Tylenol Extra Strength) ammonium lactate 12 % topical cream 1 applic topical BID PRN Other 09/10/22 08/26/23 nadolol 20 mg tablet 20 mg PO DAILY 09/10/22 08/26/23 omeprazole 20 mg capsule,delayed 20 mg PO QAM 09/10/22 08/26/23 release ergocalciferol (vitamin D2) 1,250 50,000 unit PO WK 08/26/23 08/26/23 mcg (50,000 unit) capsule lisinopril 20 1 tab PO DAILY 08/26/23 08/26/23 mg-hydrochlorothiazide 12.5 mg tablet Results & Data (ED) Vital Signs Vital Signs - 24 hr 08/26/23 15:06 08/26/23 16:00 08/26/23 16:24 Temperature 36.3 C L Temperature Source Temporal Artery Scan Pulse Rate 80 Pulse Rate from SpO2 Sensor Pulse Rhythm Regular Pulse Strength Normal Respiratory Rate 20 Respiratory Effort / Characteristics Non-Labored Spontaneous Respiratory Depth Normal Blood Pressure 131/71 144/64 H Blood Pressure Mean 91 86 Blood Pressure Position Sitting Pulse Oximetry 95 98 Oxygen Delivery Method Room Air Sepsis Recent Fever Within 48 Hours No Sepsis New/Unexplained Change in Mental Status N/A Sepsis Action Taken by Nursing No Action Required 08/26/23 16:30 08/26/23 16:30 08/26/23 16:31 Temperature Temperature Source Pulse Rate 74 Pulse Rate from SpO2 Sensor Pulse Rhythm Pulse Strength Respiratory Rate Respiratory Effort / Characteristics Respiratory Depth Blood Pressure 147/67 H 147/67 H Blood Pressure Mean 79 79 Blood Pressure Position Pulse Oximetry Oxygen Delivery Method Sepsis Recent Fever Within 48 Hours Sepsis New/Unexplained Change in Mental Status Sepsis Action Taken by Nursing 08/26/23 16:36 08/26/23 17:30 08/26/23 17:30 Temperature Temperature Source Pulse Rate 71 72 Pulse Rate from SpO2 Sensor 71 Pulse Rhythm Pulse Strength Respiratory Rate 14 17 Respiratory Effort / Characteristics Respiratory Depth Blood Pressure 135/83 Blood Pressure Mean 105 Blood Pressure Position Pulse Oximetry 99 Oxygen Delivery Method Sepsis Recent Fever Within 48 Hours Sepsis New/Unexplained Change in Mental Status Sepsis Action Taken by Nursing 08/26/23 17:57 08/26/23 18:00 08/26/23 18:12 Temperature Temperature Source Pulse Rate 69 72 Pulse Rate from SpO2 Sensor 70 72 Pulse Rhythm Pulse Strength Respiratory Rate 15 19 Respiratory Effort / Characteristics Respiratory Depth Blood Pressure 118/72 Blood Pressure Mean 89 Blood Pressure Position Pulse Oximetry 99 99 Oxygen Delivery Method Room Air Sepsis Recent Fever Within 48 Hours Sepsis New/Unexplained Change in Mental Status Sepsis Action Taken by Nursing 08/26/23 18:30 08/26/23 18:30 08/26/23 18:30 Temperature Temperature Source Pulse Rate Pulse Rate from SpO2 Sensor Pulse Rhythm Pulse Strength Respiratory Rate Respiratory Effort / Characteristics Respiratory Depth Blood Pressure 142/79 H 142/79 H 142/79 H Blood Pressure Mean 93 93 93 Blood Pressure Position Pulse Oximetry Oxygen Delivery Method Sepsis Recent Fever Within 48 Hours Sepsis New/Unexplained Change in Mental Status Sepsis Action Taken by Nursing 08/26/23 18:30 08/26/23 19:00 08/26/23 19:01 Temperature Temperature Source Pulse Rate 77 67 Pulse Rate from SpO2 Sensor Pulse Rhythm Pulse Strength Respiratory Rate 23 16 Respiratory Effort / Characteristics Respiratory Depth Blood Pressure 121/74 Blood Pressure Mean 80 Blood Pressure Position Pulse Oximetry Oxygen Delivery Method Sepsis Recent Fever Within 48 Hours Sepsis New/Unexplained Change in Mental Status Sepsis Action Taken by Nursing 08/26/23 19:01 08/26/23 19:24 08/26/23 19:30 Temperature Temperature Source Pulse Rate 74 Pulse Rate from SpO2 Sensor 74 Pulse Rhythm Pulse Strength Respiratory Rate 17 Respiratory Effort / Characteristics Respiratory Depth Blood Pressure 121/74 134/76 Blood Pressure Mean 80 85 Blood Pressure Position Pulse Oximetry 99 Oxygen Delivery Method Sepsis Recent Fever Within 48 Hours Sepsis New/Unexplained Change in Mental Status Sepsis Action Taken by Nursing 08/26/23 19:39 08/26/23 20:09 Temperature Temperature Source Pulse Rate 75 74 Pulse Rate from SpO2 Sensor 73 Pulse Rhythm Pulse Strength Respiratory Rate 18 16 Respiratory Effort / Characteristics Respiratory Depth Blood Pressure Blood Pressure Mean Blood Pressure Position Pulse Oximetry 99 Oxygen Delivery Method Room Air Sepsis Recent Fever Within 48 Hours Sepsis New/Unexplained Change in Mental Status Sepsis Action Taken by Nursing Laboratory Data 08/26/23 16:43 08/26/23 16:43 Lab Results 08/26/23 08/26/23 Range/Units 16:43 20:00 WBC 1.07 L (4.8-10.8) K/ul RBC 3.47 L (4.70-6.10) M/uL Hgb 9.9 L (14.0-18.0) g/dl Hct 30.0 L (42.0-52.0) % MCV 86.5 (80.0-100.0) fL MCH 28.5 (25.0-34.0) pg MCHC 33.0 (32.0-36.0) g/dL RDW Std Deviation 55.7 H (36.4-46.3) fL RDW Coeff of Eirc 17.6 H (11.5-14.5) % Plt Count 28 L* (130-400) K/uL MPV 11.7 (9.4-12.4) fL Immature Gran % (Auto) 0.0 % Neut % (Auto) 53.2 % Lymph % (Auto) 31.8 % Mora % (Auto) 8.4 % Eos % (Auto) 4.7 % Baso % (Auto) 1.9 % Neut # (Auto) 0.57 L* (1.40-6.50) K/uL Lymph # (Auto) 0.34 L (1.20-3.40) K/uL Mora # (Auto) 0.09 L (0.11-0.59) K/uL Eos # (Auto) 0.05 (0.00-0.50) K/uL Baso # (Auto) 0.02 (0.00-0.20) K/uL Immature Gran # (Auto) 0.00 L (0.01-0.20) K/uL PT 16.5 H (9.0-12.0) Seconds INR 1.6 H (0.9-1.1) Sodium 139 (136-145) mmol/L Potassium 3.8 (3.5-5.1) mmol/L Chloride 109 H (98-107) mmol/L Carbon Dioxide 27 (21-32) mmol/L Anion Gap 3 (3-11) BUN 15 (6-23) mg/dl Creatinine 1.10 (0.6-1.4) mg/dl Est Cr Clr Drug Dosing 112.0 ml/min Est GFR ( Amer) 87.1 ml/min Est GFR (Non-Af Amer) 75.2 ml/min BUN/Creatinine Ratio 13.6 (10-20) Glucose 80 (70-99(Fasting)) mg/dl Calcium 8.0 L (8.6-10.3) mg/dl Magnesium 1.7 (1.7-2.4) mg/dl Total Bilirubin 1.4 H (0.2-1.0) mg/dl AST 48 H (13-39) U/L ALT 31 (7-52) U/L Alkaline Phosphatase 71 (34-104) U/L Troponin I High Sens 4.6 (0-20) pg/ml Total Protein 5.0 L (6.0-8.3) gm/dl Albumin 2.8 L (3.4-5.0) gm/dl Globulin 2.2 L (2.5-4.0) gm/dl Albumin/Globulin Ratio 1.3 (0.9-2) TSH 1.703 (0.300-4.500) uIu/ml Urine Color Dark Yellow Urine Appearance Clear (Clear) Urine pH 7.5 (4.5-7.5) Ur Specific [place] > 1.045 H (1.000-1.030) Urine Protein Negative (Negative) Urine Glucose (UA) Negative (Negative) Urine Ketones Negative (Negative) Urine Blood Negative (Negative) Urine Nitrite Negative (Negative) Urine Bilirubin Negative (Negative) Urine Urobilinogen Negative (Negative) Ur Leukocyte Esterase Negative (Negative) Administered Medications Discontinued Medications Ioversol (Optiray 320 100ml) 95 ml IV ONCE ONE Stop: 08/26/23 19:47 Last Admin: 08/26/23 19:46 Dose: 95 ml Documented By: MARY LOU Imaging Data Radiologist's Impression: Chest X-Ray 08/26/23 15:07 SINGLE VIEW CHEST CLINICAL HISTORY: Generalized weakness FINDINGS: A PA chest radiograph is compared to study dated 09/10/2022. The cardiomediastinal silhouette is unremarkable. There is chronic elevation of the right hemidiaphragm and mild bibasilar atelectasis. The lungs and pleural spaces are otherwise clear. No pneumothorax is seen. The bony thorax is grossly intact. IMPRESSION: No active disease in the chest. ACT 112: Negative or not required by law. Electronically signed by: Ross Rae M.D. 08/26/2023 3:[address] 08/26/23 16:32 CT head/brain wo con CLINICAL HISTORY: headache, low platelets Technique: Contiguous axial CT images of the head were acquired from the base of the skull to the vertex without intravenous contrast administration. Images were viewed in brain, subdural and bone windows. Automated dose lowering techniques and/or adjustment according to patient size were utilized for this exam. Comparison: Comparison is made to CT abdomen pelvis 09/10/2022 Findings: The ventricles, basal cisterns, and cerebral sulci are normal. There is no acute intracranial hemorrhage or evidence of acute territorial infarction. Neither mass effect, shift of the midline structures, nor abnormal extra-axial fluid collections are shown. Imaged portions of the paranasal sinuses and mastoid air cells are clear. The orbits appear normal. There are no acute fractures of the calvaria or scalp swelling. Impression: No acute intracranial hemorrhage, no evidence of acute territorial infarction or other acute intracranial disease process. ACT 112: Negative or not required by law. Electronically signed by: Perry Dos Santos M.D. 08/26/2023 5:[address] 08/26/23 16:32 CT lumbar spine wo con CLINICAL HISTORY: low right back pain TECHNIQUE: Multidetector row helical CT of the lumbar spine was performed without administration of intravenous contrast. Coronal and sagittal reformations were obtained. Automated dose lowering techniques and/or adjustment according to patient size were utilized for this exam. CT DOSE: 1513.49 mGy.cm Comparison: None available at the time of this dictation. FINDINGS: For counting purposes, the last complete intervertebral disc space is considered L5-S1. No acute fractures are identified. Vertebral body heights and disk spaces are well maintained. Vertebral body alignment is within normal limits. Surrounding soft tissues are unremarkable. IMPRESSION: No evidence of acute bony injury. ACT 112: Negative or not required by law. Electronically signed by: Perry Dos Santos M.D. 08/26/2023 5:50 PM Discharge Plan Visit Data Chief Complaint: Referred by Doctor Stated Complaint: REF BY DOCTOR FOR INFUSION-PLATELET ED Provider: Farhan Herrera Discharge Problem: Pancytopenia, HARRIS (nonalcoholic steatohepatitis), Neutropenia Forms Stand Alone Forms: My [facility] Prescriptions Prescriptions: No Action acetaminophen [Tylenol Extra Strength] 500 mg Tablet 1,000 mg PO Q6H PRN (Reason: Pain) nadolol 20 mg tablet 20 mg PO DAILY Rx Instructions: pt states doesn't take regularly omeprazole 20 mg capsule,delayed release(DR/EC) 20 mg PO QAM ammonium lactate 12 % cream 1 applic TOPICAL BID PRN (Reason: Other) lisinopril-hydrochlorothiazide 20-12.5 mg tablet 1 tab PO DAILY ergocalciferol (vitamin D2) 1,250 mcg (50,000 unit) capsule 50,000 unit PO WK Rx Instructions: takes on tues Referrals Referrals: Mikey Blood MD [Primary Care Provider] -
--- NOTE | 2023-08-26 17:10 | CT Scan Report ---
CT head/brain wo con CLINICAL HISTORY: headache, low platelets Technique: Contiguous axial CT images of the head were acquired from the base of the skull to the hawk olga without intravenous contrast administration. Images were viewed in brain, subdural and bone [facility]. Automated dose lowering techniques and/or adjustment according to patient size were utilized for this exam. Comparison: Comparison is made to CT abdomen pelvis 09/10/2022 Findings: The ventricles, basal cisterns, and cerebral sulci are normal. There is no acute intracranial hemorrh age or evidence of acute territorial infarction. Neither mass effect, shift of the midline structures , nor abnormal extra-axial fluid collections are shown. Imaged portions of the paranasal sinuses and mastoid air cells are clear. The orbits appear normal. There are no acute fractures of the calvaria or scalp swelling. Impression: No acute intracranial hemorrhage, no evidence of acute territorial infarction or other acute intracra nial disease process. ACT 112: Negative or not required by law. Electronically signed by: Perry Dos Santos M.D. 08/26/2023 5:09 PM
[2023-08-26 17:23] LABS: Albumin Globulin Ratio 1.3 (0.9-2); Albumin Level 2.8 gm/dl (3.4-5.0); BUN Creatinine Ratio 13.6 (10-20); Bilirubin,Total 1.4 mg/dl (0.2-1.0); Est GFR (African American) 87.1 ml/min; Est GFR (Non-African American) 75.2 ml/min; Globulin 2.2 gm/dl (2.5-4.0); Magnesium 1.7 mg/dl (1.7-2.4); Potassium 3.8 mmol/L (3.5-5.1)
[2023-08-26 17:30] LABS: Troponin I High Sensitivity 4.6 pg/ml (0-20)
[2023-08-26 17:37] LABS: Hemoglobin 9.9 g/dl (14.0-18.0); INR 1.6 (0.9-1.1); Mean Corpuscular Hemoglobin 28.5 pg (25.0-34.0); Mean Corpuscular Volume 86.5 fL (80.0-100.0); Prothrombin Time 16.5 Seconds (9.0-12.0); RDW Coefficient of Variation 17.6 % (11.5-14.5); RDW Standard Deviation 55.7 fL (36.4-46.3); Red Blood Count 3.47 M/uL (4.70-6.10); White Blood Count 1.07 K/ul (4.8-10.8)
[2023-08-26 17:39] LABS: Thyroid Stimulating Hormone 1.703 uIu/ml (0.300-4.500)
[2023-08-26 17:45] LABS: Basophils # (auto) 0.02 K/uL (0.00-0.20); Basophils % (auto) 1.9 %; Eosinophils # (auto) 0.05 K/uL (0.00-0.50); Eosinophils % (auto) 4.7 %; Lymphocytes # (auto) 0.34 K/uL (1.20-3.40); Lymphocytes % (auto) 31.8 %; Mean Platelet Volume 11.7 fL (9.4-12.4); Monocytes # (auto) 0.09 K/uL (0.11-0.59); Monocytes % (auto) 8.4 %; Neutrophils # (auto) 0.57 K/uL (1.40-6.50); Neutrophils % (auto) 53.2 %; Platelet Count 28 K/uL (130-400)
--- NOTE | 2023-08-26 17:52 | CT Scan Report ---
CT lumbar spine wo con CLINICAL HISTORY: low right back pain TECHNIQUE: Multidetector row helical CT of the lumbar spine was performed without administration of i ntravenous contrast. Coronal and sagittal reformations were obtained. Automated dose lowering techniq ues and/or adjustment according to patient size were utilized for this exam. CT DOSE: 1513.49 mGy.cm Comparison: None available at the time of this dictation. FINDINGS: For counting purposes, the last complete intervertebral disc space is considered L5-S1. No acute fractures are identified. Vertebral body heights and disk spaces are well maintained. Verteb ral body alignment is within normal limits. Surrounding soft tissues are unremarkable. IMPRESSION: No evidence of acute bony injury. ACT 112: Negative or not required by law. Electronically signed by: Perry Dos Santos M.D. 08/26/2023 5:50 PM
--- NOTE | 2023-08-26 19:18 | History & Physical Report ---
<Statement entered by Daniel Byers, DO - 08/26/23 19:49> I have seen and examined the patient and have discussed the case with the provider above. I have reviewed the advanced practitioner's documentation, and I agree with, and take responsibility for that plan of care. Patient seen and evaluated while still in the ED. He reports that his PCP has been trending his blood counts over the last week and is seeing them slowly declining. Does admit to some back discomfort. Plan of care as outlined below Date of Service August 26, 2023 Assessment & Plan (1) Pancytopenia: Plan: Patient is 53 year old male with PMH cirrhosis due to alpha-1 antitrypsin deficiency and fatty liver disease, splenomegaly, esophageal varices, portal hypertension, chronic pancytopenia, HTN, vitamin D deficiency presented to ER for complaint of downtrending WBC and platelet levels. He previously saw [facility] hematology but now moved to [facility] and is trying to get established with [facility] hematology but has not seen yet. WBC: 1.0, RBC: 3.4, Hgb: 9.9, HCT: 30, PLT: 28 09/10/22 WBC: 3.6 with PLT 28, 10/07/2021 WBC: 1.9 with PLT 36. (More recent labs from [facility] not available for review at this time) No current bleeding. Denies fever/chills CT head: No signs bleeding CT abdomen pelvis pending Peripheral smear pending Blood cultures pending ER physician spoke to hematology, Dr. Knox who thought pancytopenia secondary to underlying cirrhosis, hepatosplenomegaly and recommended CT abdomen pelvis and GI consult. No platelet transfusion recommended secondary to no active bleeding GI consult CBC, CMP in a.m. Will need hematology follow-up (2) Cirrhosis: (3) DIAS (nonalcoholic steatohepatitis): (4) Portal hypertension: (5) Esophageal varices: Plan: cirrhosis due to alpha-1 antitrypsin deficiency and fatty liver disease Peripheral edema [facility] Patient prescribed nadolol however does not take regularly. Will resume and monitor vitals CT abdomen pelvis pending to further assess liver and spleen Echo GI consult (6) HTN (hypertension): Plan: BP stable Continue lisinopril, HCTZ (7) GERD (gastroesophageal reflux disease): Plan: Continue PPI DVT Prophylaxis SCDs Admit med tele Full Code as per discussion with pt Follows with [facility] for routine care Pt was seen and care coordinated with Dr Byers. See addendum I spent a total of 78 minutes reviewing notes, outpatient records, labs, medication, coordinating, documenting and providing care for this patient excluding time spent in the performance of separately billed services. History of Present Illness Chief Complaint: abnormal labs Primary Care Provider: Mikey Blood MD Patient is 53 year old male with PMH cirrhosis due to alpha-1 antitrypsin deficiency and fatty liver disease, splenomegaly, esophageal varices, portal hypertension, chronic pancytopenia, HTN, vitamin D deficiency presented to ER for complaint of abnormal outpatient labs. History obtained from patient, patient's and outpatient chart review. Patient states now following with new PCP in [facility] and has had labs recently with reported downtrending WBC and platelet levels. He previously saw [facility] hematology but now moved to [facility] and is trying to get established with [facility] hematology but has not seen yet. Patient states is noticing at end of day bilateral ankle edema x 2 months. He states has not been taking nadolol regularly as he forgets to take it. Also reports some right lower back pain which he thought may be from lifting something. Denies LE or saddle paresthesias or LE pain. States has been fatigued for months. Denies any noted increased abdominal girth. Does not weigh himself regularly. He states a couple times has noted some dried blood on his pillowcase upon awakening in the morning that he feels may be coming from gingival bleeding but denies this happening recently. Denies any noted hematuria, hematochezia, melena, epist axis, noted gingival bleeding with teeth brushing. Reports some constipation alternating with loose bowel movements. Having slight CLEMENTS's intermittently. Denies fever/chills, diaphoresis, N/V, dizziness, syncope, vision changes, neck pain, CP, SOB, orthopnea, palpitations, cough, sore throat, choking, rhinorrhea, abdominal pain, paresthesias, extremity weakness, rashes, urinary symptoms. Allergies Allergy/AdvReac Type Severity Reaction Status Date / Time amoxicillin Allergy Intermediate RASH Verified 09/10/22 16:42 Home Medications Medication Instructions Recorded Confirmed Type acetaminophen 500 mg tablet 1,000 mg PO Q6H PRN Pain 09/10/22 08/26/23 History (Tylenol Extra Strength) ammonium lactate 12 % topical cream 1 applic topical BID PRN Other 09/10/22 08/26/23 History nadolol 20 mg tablet 20 mg PO DAILY 09/10/22 08/26/23 History omeprazole 20 mg capsule,delayed 20 mg PO QAM 09/10/22 08/26/23 History release ergocalciferol (vitamin D2) 1,250 50,000 unit PO WK 08/26/23 08/26/23 History mcg (50,000 unit) capsule lisinopril 20 1 tab PO DAILY 08/26/23 08/26/23 History mg-hydrochlorothiazide 12.5 mg tablet Past Med/Surg History Problem List (Updated 08/26/23 @ 20:45 by Quin Diaz PA-C) GERD (gastroesophageal reflux disease) Esophageal varices Portal hypertension Cirrhosis Neutropenia (Acute) DIAS (nonalcoholic steatohepatitis) (Acute) Pancytopenia (Acute) Umbilical hernia Thrombocytopenia (Acute) HTN (hypertension) Ventral hernia (Acute) Surgical History (Updated 08/26/23 @ 20:43 by Quin Diaz PA-C) History of colonoscopy History of esophagogastroduodenoscopy (EGD) Family History (Updated 08/26/23 @ 20:43 by Quin Diaz PA-C) Grandfather (Paternal) Cancer Social History (Updated 08/26/23 @ 20:43 by Quin Diaz PA-C) Smoking Status: Never smoker Hx Alcohol Use: Yes (1 drink twice a year) Hx Substance Use: No Preferred Language: Taiwanese Feels Safe at Home: Yes Review of Systems Review of Systems: All systems reviewed & are unremarkable except as noted in HPI & below Physical Exam Physical Exam: General: no distress, obese Head: normocephalic, atraumatic Eyes: PERRL, EOM's intact, conjunctiva non-injected, anicteric ENT: normal inspection external ears, nose, mucous membranes moist Neck: supple, trachea midline Lungs: clear, no respiratory distress, no wheezing/rhonchi/rales CV: RRR, + murmur, 1-2+ pretibial edema Abd: protuberant, normal BS, soft, non-tender Ext: no cyanosis, no calf tenderness Neuro: A&O x 3, no focal deficits noted, normal affect Skin: warm, dry Results & Data Results & Data Vital Signs (Past 12 Hours) Vital Signs Temp Pulse Resp BP Pulse Ox O2 Del Method 08/26/23 18:30 77 23 08/26/23 18:30 142/79 H 08/26/23 18:30 142/79 H 08/26/23 18:30 142/79 H 08/26/23 18:12 72 19 99 Room Air 08/26/23 18:00 118/72 08/26/23 17:57 69 15 99 08/26/23 17:30 135/83 08/26/23 17:30 72 17 08/26/23 16:36 71 14 99 08/26/23 16:31 74 08/26/23 16:30 147/67 H 08/26/23 16:30 147/67 H 08/26/23 16:24 144/64 H 08/26/23 16:00 98 08/26/23 15:06 36.3 C L 80 20 131/71 95 Room Air Laboratory Results Short CBC 08/26/23 Range/Units 16:43 WBC 1.07 L (4.8-10.8) K/ul Hgb 9.9 L (14.0-18.0) g/dl Hct 30.0 L (42.0-52.0) % Plt Count 28 L* (130-400) K/uL BMP 08/26/23 16:43 Sodium 139 Potassium 3.8 Chloride 109 H Carbon Dioxide 27 BUN 15 Creatinine 1.10 Glucose 80 Calcium 8.0 L Liver Function 08/26/23 Range/Units 16:43 Total Bilirubin 1.4 H (0.2-1.0) mg/dl AST 48 H (13-39) U/L ALT 31 (7-52) U/L Alkaline Phosphatase 71 (34-104) U/L Albumin 2.8 L (3.4-5.0) gm/dl Urine 08/26/23 Range/Units 20:00 Urine Color Dark Yellow Urine Appearance Clear (Clear) Urine pH 7.5 (4.5-7.5) Ur Specific [place] > 1.045 H (1.000-1.030) Urine Protein Negative (Negative) Urine Glucose (UA) Negative (Negative) Diagnostic Findings Chest X-Ray 08/26/23 15:07 SINGLE VIEW CHEST CLINICAL HISTORY: Generalized weakness FINDINGS: A PA chest radiograph is compared to study dated 09/10/2022. The cardiomediastinal silhouette is unremarkable. There is chronic elevation of the right hemidiaphragm and mild bibasilar atelectasis. The lungs and pleural spaces are otherwise clear. No pneumothorax is seen. The bony thorax is grossly intact. IMPRESSION: No active disease in the chest. ACT 112: Negative or not required by law. Electronically signed by: Ross Rae M.D. 08/26/2023 3:[address] 08/26/23 16:32 CT head/brain wo con CLINICAL HISTORY: headache, low platelets Technique: Contiguous axial CT images of the head were acquired from the base of the skull to the vertex without intravenous contrast administration. Images were viewed in brain, subdural and bone windows. Automated dose lowering techniques and/or adjustment according to patient size were utilized for this exam. Comparison: Comparison is made to CT abdomen pelvis 09/10/2022 Findings: The ventricles, basal cisterns, and cerebral sulci are normal. There is no acute intracranial hemorrhage or evidence of acute territorial infarction. Neither mass effect, shift of the midline structures, nor abnormal extra-axial fluid collections are shown. Imaged portions of the paranasal sinuses and mastoid air cells are clear. The orbits appear normal. There are no acute fractures of the calvaria or scalp swelling. Impression: No acute intracranial hemorrhage, no evidence of acute territorial infarction or other acute intracranial disease process. ACT 112: Negative or not required by law. Electronically signed by: Perry Dos Santos M.D. 08/26/2023 5:[address] 08/26/23 16:32 CT lumbar spine wo con CLINICAL HISTORY: low right back pain TECHNIQUE: Multidetector row helical CT of the lumbar spine was performed without administration of intravenous contrast. Coronal and sagittal reformations were obtained. Automated dose lowering techniques and/or adjustment according to patient size were utilized for this exam. CT DOSE: 1513.49 mGy.cm Comparison: None available at the time of this dictation. FINDINGS: For counting purposes, the last complete intervertebral disc space is considered L5-S1. No acute fractures are identified. Vertebral body heights and disk spaces are well maintained. Vertebral body alignment is within normal limits. Surrounding soft tissues are unremarkable. IMPRESSION: No evidence of acute bony injury. ACT 112: Negative or not required by law. Electronically signed by: Perry Dos Santos M.D. 08/26/2023 5:50 PM
[2023-08-26] MEDS: OPTIRAY 320 100ml IV ONE (19:46)
[2023-08-26 20:23] LABS: Appearance Urine Clear (Clear); Bilirubin Urine Negative (Negative); Blood Urine Negative (Negative); Color Urine Dark Yellow; Glucose Urine UA Negative (Negative); Ketones Urine Negative (Negative); Leukocyte Esterase Urine Negative (Negative); Nitrite Urine Negative (Negative); Protein Urine Negative (Negative); Specific Gravity Urine > 1.045 (1.000-1.030); Urobilinogen Urine Negative (Negative); pH Urine 7.5 (4.5-7.5)
--- OUTSIDE RECORDS SUMMARY | 2023-08-26 20:57 | External Medical Summary | Summary of Care ---
Author Name Unknown Organization [facility] Address [address] [place] [address] Phone [phone] Care Team Providers Care Personal Care Aide Name Role Phone Mikey Blood MD Primary Care Provider [phone] Encounter Details Date Type Department Care Team (Late st Contact Info) Description 07/12/2023 Orders Only PATIENT PORTAL DO NOT DELETE THIS DEPT USED BY [place] [id number] Allergies Active Allergy Reactions Criticality Noted Date Comments Amoxicillin Medium 09/13/2012 Rash documented as of this encounter (statuses as of 07/12/2023) Medications Medication Sig Dispensed Refills Start Date End Date Status Multiple Vitamins-Minerals (MULTIVITAL) chewable tablet Take 1 Tablet by mouth in the morning. Active Fluticasone Propionate 50 MCG/ACT Nasal Suspension (Flonase) Administer 2 Sprays into each nostril in the morning. 16 g 1 04/10/2022 Active Additional Information Patient taking differently:2 [place] Each Nostril Daily(AM),Indications: as needed, Reported on 04/27/2022 Nadolol 20 MG Oral Tablet (Corgard) Take 1 Tablet by mouth in the morning. 30 Tablet 3 06/01/2022 Active Doxycycline Hyclate 100 MG Oral Capsule Take 1 Capsule by mouth in the morning and 1 Capsule before bedtime. 09/11/2022 Active Ammonium Lactate 12 % External CreamIndications:De rmatitis Apply to affected area once or twice a day 385 g 1 12/12/2022 Active Omeprazole 20 MG Oral Capsule Delayed Release (PriLOSEC)Indicatio ns:Dysphagia, unspecified type Take 1 Capsule by mouth in the morning. 90 Capsule 1 07/06/2023 Active Triamterene-HCTZ 37.5-25 MG Oral Capsule (Dyazide)Indication s:Dermatitis Take 1 Capsule by mouth in the morning. 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 Immune to hepatitis B 11/09/2018 Thrombocytopenia 11/09/2018 Other cirrhosis of liver 04/10/2018 Colon cancer screening 04/10/2018 Pre-transplant evaluation for chronic liver dise ase 09/27/2017 Secondary esophageal varices without bleeding Portal hypertension 07/14/2017 Hepatosplenomegaly 05/26/2017 Abnormal LFTs 05/26/2017 Erectile dysfunction 03/12/2014 Carpal tunnel syndrome 03/12/2014 STASIS DERMATITIS 06/27/2008 ABDOMINAL PAIN, LEFT UPPER QUADRANT 05/24/2001 Other atopic dermatitis Overview: ICD-10 update of inactive term documented as of this encounter (statuses as of 07/12/2023) Resolved Problems Problem Noted Date Diagnosed Date Resolved Date Constipation 05/24/2001 06/27/2008 Overview: ICD-10 update of inactive term CHEST WALL PAIN, LEFT 02/10/20002000 Unspecified viral infection, in conditions classified elsewhere and of unspecified site 02/10/2000 07/12/2000 ACUTE PHARYNGITIS 02/10/2000 07/12/2000 Cough 02/10/2000 07/12/2000 documented as of this encounter (statuses as of 07/12/2023) Immunizations Name Administration Dates Next Due Diptheria/Tetanus (Adult) 02/08/2004 HEP A - Hepatitis A (Adult > 18 yrs) 12/12/2017, 06/09/2017 Hepatitis B, 20+ yrs 11/25/2020 Pneumococcal Polysaccharide PPV23 (Pneumovax) Seasonal Influenza, PF, 6 M & above, IM , (FluLaval or Fluzone) 11/19/2019 Seasonal Influenza, Quadrivalent, No Preserve, I M 02/14/2015 TDAP, Age 7 and older, IM (Adacel) 03/23/2011 documented as of this encounter Social History Tobacco Use Types Packs/Day Years Used Date Smoking Tobacco: Never Smokeless Tobacco: Never Alcohol Use Standard Drinks/Week Comments Not Currently 0 (1 standard drink = 0.6 oz pur e alcohol) Rare PHQ-2 Answer Date Recorded PHQ Adult Total Score 0 11/19/2020 Hunger Vital Sign Answer Date Recorded Within the past 12 months, y ou worried that your food would run out before you got the money to buy more. Never true 09/16/19 23 Within the past 12 months, t he food you bought just didn't last and you didn't have money to get more. Never true 09/15/2022 Sex and Gender Information Value Date Recorded Sex Assigned at Not on file Gender Identity Not on file Sexual Orientation Straight 11/09/2018 7: 56 AM EDT Job Start Date Occupation Industry Not on file Not on file Not on file documented as of this encounter Plan of Treatment Scheduled Procedures Name Priority Associated Diagnoses Date/Ti me COLONOSCOPY FLEXIBLE PROXIMAL DIAGNOSTIC Recall History of colon polyps Health Maintenance Due Date Last Done Comments Cologuard 2013 Fecal Occult Blood Test 2013 Sigmoidoscopy 2013 Zoster Vaccines (1 of 2) 2018 Pneumococcal Vaccine: Pediatrics (0 to 5 Years) and At-Risk Patients (6 to 64 Years) (2 of 2 - PCV) 04/13/2019 04/12/2018 DTaP,Tdap,and Td Vaccines (2 - Td or Tdap) 03/23/2021 03/23/2011, 02/08/2004 Depression Screening 11/19/2021 11/19/2020 COVID-19 Vaccine ( - season) 2022 Influenza Vaccine (FLU shot) (Season Ended) 2023 11/19/2019, 02/14/2015 Colonoscopy 05/03/2025 05/03/2022, 04/08, 04/19/2018, Additional history exists Colorectal Cancer Screening 05/03/2025 Lipid Panel 05/26/2025 05/26/2020, 10/0 04/2018, 12/29/2016, Additional history exists Diabetes Screening 09/10/2025 09/10/2022, 0 10/07/2021, 11/25/2020, Additional history exists GARDASIL-HPV IMMUNIZATION SERIES Aged Out No longer eligible based on patient's age to complete this topic MENINGOCOCCAL (MENACTRA/MENVEO) Aged Out No longer eligible based on patient's age to complete this topic documented as of this encounter Medical Devices Implanted Type Area Craps Dealer Device Identifier Shelf Expiration Date Model / Serial / Lot Clip Quick 2.8mm 230cm - [id number] Implanted:Qty: 1 on 05/03/2022 by Abi Gonzalez DO at ENDOSCOPY [facility] Colon [employer] 09/06/2024 [id number] / [id number] documented as of this encounter Care Teams Personal Care Aide Relationship Specialty Start Date End Date Mikey Blood MD [address], [place] [id number] PCP - General 04/05/02 documented as of this encounter
--- OUTSIDE RECORDS SUMMARY | 2023-08-26 20:57 | External Medical Summary | Summary of Care ---
Author Name Unknown Organization [facility] Address [address] [place] [address] Phone [phone] Care Team Providers Care Shipping Coordinator Name Role Phone Colin Blood MD Primary Care Provider [phone] Reason for Visit * Reason Onset Date Comments Medication Refill 07/05/2023 Encounter Details Date Type Department Care Team (Late st Contact Info) Description 07/05/2023 Refill [facility] [address] [place] [address] Colin Blood MD [address] [place] [address] STASIS DERMATITIS Allergies Active Allergy Reactions Criticality Noted Date Comments Amoxicillin Medium 09/13/2012 Rash documented as of this encounter (statuses as of 07/06/2023) Medications Medication Sig Dispensed Refills Start Date End Date Status Multiple Vitamins-Minerals (MULTIVITAL) chewable tablet Take 1 Tablet by mouth in the morning. Active Fluticasone Propionate 50 MCG/ACT Nasal Suspension (Flonase) Administer 2 Sprays into each nostril in the morning. 16 g 1 04/10/2022 Active Additional Information Patient taking differently:2 [place] Each Nostril Daily(AM),Indications: as needed, Reported on 04/27/2022 Nadolol 20 MG Oral Tablet (Corgard) Take 1 Tablet by mouth in the morning. 30 Tablet 3 06/01/2022 Active Doxycycline Hyclate 100 MG Oral Capsule Take 1 Capsule by mouth in the morning and 1 Capsule before bedtime. 09/11/2022 Active Ammonium Lactate 12 % External CreamIndications: Dermatitis Apply to affected area once or twice a day 385 g 1 12/12/2022 Active Omeprazole 20 MG Oral Capsule Delayed Release (PriLOSEC)Indicat ions:Dysphagia, unspecified type Take 1 Capsule by mouth in the morning. 90 Capsule 1 07/06/2023 Active Triamterene-HCTZ 37.5-25 MG Oral Capsule (Dyazide)Indicati ons:Dermatitis Take 1 Capsule by mouth in the morning. 90 Capsule 1 07/06/2023 Active Triamterene-HCTZ 37.5-25 MG Oral Capsule (Dyazide)Indicati ons:Dermatitis Take 1 Capsule by mouth in the morning. 90 Capsule 1 12/11/2022 Discontinue d(Refill) documented as of this encounter (statuses as of 07/06/2023) Active Problems Problem Noted Date Diagnosed Date [...] as of this encounter (statuses as of 07/06/2023) Resolved Problems Problem Noted Date Diagnosed Date Resolved Date Constipation 05/24/2001 06/27/2008 Overview: ICD-10 update of inactive term CHEST WALL PAIN, LEFT 02/10/20002000 Unspecified viral infection, in conditions classified elsewhere and of unspecified site 02/10/2000 07/12/2000 ACUTE PHARYNGITIS 02/10/2000 07/12/2000 Cough 02/10/2000 07/12/2000 documented as of this encounter (statuses as of 07/06/2023) Immunizations Name Administration Dates Next Due Diptheria/Tetanus (Adult) 02/08/2004 HEP A - Hepatitis A (Adult > 18 yrs) 12/12/2017, 06/09/2017 Hepatitis B, 20+ yrs 11/25/2020 Pneumococcal Polysaccharide PPV23 (Pneumovax) Seasonal Influenza, PF, 6 M & above, IM , (FluLaval or Fluzone) 11/19/2019 Seasonal Influenza, Quadrivalent, No Preserve, I M 02/14/2015 TDAP (age 11 and older)(Adacel) 03/23/2011 documented as of this encounter Social [...] on file documented as of this encounter Miscellaneous Notes * Telephone Encounter - Abiel Thomas RP - 07/06/2023 12:38 PM EDT Signed Prescriptions: Disp Refills Triamterene-HCTZ 37.5-25 MG Oral Capsule (*90 Cap*1 Sig: Take 1 Capsule by mouth in the morning.Authorizing Provider: COLIN BLOOD User: ABIEL THOMAS documented in this encounter Plan of Treatment Scheduled Procedures [...] Screening 11/19/2021 11/19/2020 COVID-19 Vaccine ( - 2022- season) 2022 Influenza Vaccine (FLU shot) (Season [...] this encounter Medical Devices Implanted Type Area Video Game Designer Device Identifier Shelf Expiration Date Model / Serial / Lot Clip Quick 2.8mm 230cm - [id number] Implanted:Qty: 1 on 05/03/2022 by Abi Gonzalez DO at [facility]OSCOPY [facility] Colon [employer] 09/06/2024 [id number] / [id number] documented as of this encounter Visit Diagnoses Diagnosis STASIS DERMATITIS Contact dermatitis and other eczema, due to unspecified cause documented in this encounter Care Teams Shipping Coordinator Relationship Specialty Start Date End Date Colin Blood MD [address] [place] [address] PCP - General 04/05/02 documented as of this encounter
--- OUTSIDE RECORDS SUMMARY | 2023-08-26 20:57 | External Medical Summary | Summary of Care ---
Author Name Unknown Organization [facility] Address [address] [place] [address] Phone [phone] Care Team Providers Care Dog Breeder Name Role Phone Colin Blood MD Primary Care Provider [phone] Reason for Visit * Reason Onset Date Comments Medication Refill 07/05/2023 Encounter Details Date Type Department Care Team (Late st Contact Info) Description 07/05/2023 Refill [facility] [address] [place] [address] Colin Blood MD [address] [place] [address] Encounter for long-term (current) use of medications*; Dysphagia, unspecified type Allergies Active Allergy Reactions Criticality Noted Date [...] 04/10/2022 Active Additional Information Patient taking differently:2 [place] Each Nostril Daily(AM),Indications: as needed, Reported on [...] the morning. 90 Capsule 1 07/06/2023 Active Omeprazole 20 MG Oral Capsule Delayed Release (PriLOSEC)Indicat ions:Dysphagia, unspecified type Take 1 Capsule by mouth in the morning. 90 Capsule 1 12/11/2022 4 Discontinue d(Refill) Triamterene-HCTZ 37.5-25 MG Oral Capsule (Dyazide)Indicati ons:Dermatitis Take 1 Capsule by mouth in the morning. 90 Capsule 1 12/11/2022 4 Discontinue d(Refill) documented as of this encounter [...] Encounter - Abiel Thomas RP - 07/06/2023 12:34 PM EDT Signed Prescriptions: Disp Refills Omeprazole 20 MG Oral Capsule Delayed Rele*90 Cap*1 Sig: Take 1 Capsule by mouth in the morning.Authorizing Provider: COLIN BLOOD User: ABIEL THOMAS * Telephone Encounter - Abiel Thomas RPh - 07/06/2023 12:33 PM EDT Provided 90 days supply with 1 refill(s). Per refill protocol patient should have Vitamin B12 and Magnesium levels on file within past 2 years. Lab work ordered (AMP report and protocol medications checked). Patient should have B12 and Mag levels checked with next routine set of labs. ThanksAbiel, ShannanD Clinical Pharmacist Telepharmacy 07/06/2023, 12:34 PM documented in this encounter Plan of Treatment Scheduled Orders Name Type Priority Associated Diagnoses Orde r Schedule MAGNESIUM Lab Routine Encounter for long-term (current) use of medications Expected: 07/13/2023 (Approximate), Expires: 07/05/2024 VITAMIN B12 Lab Routine Encounter for long-term (current) use of medications Expected: 07/13/2023 (Approximate), Expires: 07/05/2024 Scheduled Procedures Name Priority Associated Diagnoses Date/Ti [...] Cancer Screening 05/03/2025 Lipid Panel 05/26/2025 05/26/2020, 0 04/2018, 12/29/2016, Additional history exists Diabetes Screening 09/10/2025 09/10/2022, 0 10/07/2021, 11/25/2020, Additional history exists GARDASIL-HPV IMMUNIZATION SERIES Aged Out No longer eligible based on patient's age to complete this topic MENINGOCOCCAL (MENACTRA/MENVEO) Aged Out No longer eligible based on patient's age to complete this topic documented as of this encounter Medical Devices Implanted Type Area Support Services Rep Device Identifier Shelf Expiration Date Model / Serial / Lot Clip Quick 2.8mm 230cm - [id number] Implanted:Qty: 1 on 05/03/2022 by Abi Gonzalez DO at ENDOSCOPY [facility] 09/06/2024 [id number] / [id number] documented as of this encounter Visit Diagnoses Diagnosis Encounter for long-term (current) use of medications- Primary Encounter for long-term (current) use of other medications Dysphagia, unspecified type documented in this encounter Care Teams Dog Breeder Relationship Specialty Start Date End Date Colin Blood MD [address] [place] [address] PCP - General 04/05/02 documented as of this encounter
--- OUTSIDE RECORDS SUMMARY | 2023-08-26 20:57 | External Medical Summary | Summary of Care ---
Author Name Unknown Organization [facility] Address [address] [place] [address] Phone [phone] Care Team Providers Care Supply Chain Assistant Name Role Phone Mikey Blood MD Primary Care Provider [phone] Encounter Details Date Type Department Care Team (Late st Contact Info) Description 08/10/2023 Telephone [facility] [address] [place] [address] Mikey Blood MD [address] [place] [address] Allergies Active Allergy Reactions Criticality Noted Date Comments Amoxicillin Medium 09/13/2012 Rash documented as of this encounter (statuses as of 08/10/2023) Medications Medication Sig Dispensed Refills Start Date End Date Status Multiple Vitamins-Minerals (MULTIVITAL) chewable tablet Take 1 Tablet by mouth in the morning. Active Fluticasone Propionate 50 MCG/ACT Nasal Suspension (Flonase) Administer 2 Sprays into each nostril in the morning. 16 g 1 04/10/2022 Active Additional Information Patient taking differently:2 [place] Each Nostril Daily(AM),Indications: as needed, Reported on [...] once or twice a day 385 g 3 07/13/2023 Active Omeprazole 20 MG Oral Capsule Delayed Release (PriLOSEC)Indicatio ns:Dysphagia, unspecified type Take 1 Capsule by mouth in the morning. 30 Capsule 07/21/2023 Active Triamterene-HCTZ 37.5-25 MG Oral Capsule (Dyazide)Indication s:Dermatitis Take 1 Capsule by mouth in the morning. 30 Capsule 07/21/2023 Active documented as of this encounter (statuses as of 08/10/2023) Active Problems Problem Noted Date Diagnosed Date [...] as of this encounter (statuses as of 08/10/2023) Resolved Problems Problem Noted Date Diagnosed Date Resolved Date Constipation 05/24/2001 06/27/2008 Overview: ICD-10 update of inactive term CHEST WALL PAIN, LEFT 02/10/20002000 Unspecified viral infection, in conditions classified elsewhere and of unspecified site 02/10/2000 07/12/2000 ACUTE PHARYNGITIS 02/10/2000 07/12/2000 Cough 02/10/2000 07/12/2000 documented as of this encounter (statuses as of 08/10/2023) Immunizations Name Administration Dates Next Due Diptheria/Tetanus [...] money to get more. Never true 09/15/2022 Childcare Answer Date Recorded Do you feel overwhelmed with taking care of a child, family member or friend? No 09/15/2022 Does your family need help f inding childcare? (Household - for ages 0-17 years) Not on file 09/15/2022 Clothing Answer Date Recorded Have you been unable to get clothing when it was really needed? No 09/15/2022 Is your family able to get c lothes or diapers when needed? (Household - for ages 0-17 years) Not on file 09/15/2022 Personal Safety Answer Date Recorded Do you feel unsafe or have concerns for your saf ety? No 09/15/2022 Do you have concerns for you r family's safety? (Household - for ages 0-17 years) Not on file 09/15/2022 Utilities Answer Date Recorded Do you have trouble paying y our heating, water, or electric bill? No 09/15/2022 Is your family able to pay t he heat, water, or electric bill? (Household - for ages 0-17 years) Not on file 09/15/2022 Does your family have access to good internet? (Household - for ages 0-17 years) Not on file 09/15/2022 Employment Status Answer Date Recorded Are you unemployed or without regular income? No 09/15/2022 Does the household have a re gular source of income? (Household - for ages 0-17 years) Not on file 09/15/2022 Social Connections Answer Date Recorded How often do you feel lonely or isolated from th ose around you? Never 09/15/2022 Financial Resource Strain Answer Date R ecorded Do you have any trouble payi ng for your medications, or do you think you might in the future? No 09/15/2022 Does your family have troubl e paying for medicine? (Household - for ages 0-17 years) Not on file 09/15/2022 Transportation Needs Answer Date Record ed READ ONLY Do you have troubl e getting a ride to medical visits or work? Never True 09/15/2022 Does your family have a hard time getting a ride to doctors visits? (Household - for ages 0-17 years) Not on file 09/15/2022 Has lack of transportation k ept you from medical appointments, meetings, work, or from getting things needed for daily living? Check all that apply. (Adult - for ages 18 years and over) Not on file 09/15/2022 Do you (or your family) have trouble finding or paying for a ride (transportation)? (Household - for ages 0-17 years) Not on file 09/15/2022 Housing Stability Answer Date Recorded Do you currently live in a s helter or have no steady place to sleep at night? No 09/15/2022 READ ONLY Do you think you a re at risk of becoming homeless? No 09/15/2022 Does your family worry about paying for your home or becoming homeless? (Household - for ages 0-17 years) Not on file 0 09/15/2022 Are you homeless or worried that you might be in the future? (Adult - for ages 18 years and over) Not on file Are you (or your family) agnelina eless or worried that you might be in the future? (Household - for ages 0-17 years) Not on file Food Insecurity Answer Date Recorded Do you need food for this week? No 09/15/2022 Are you able to get enough f ood for your family? (Household - for ages 0-17 years) Not on file 09/15/2022 Does your family need food t his week? (Household - for ages 0-17 years) Not on file 09/15/2022 Do you always have enough fo od for your family? (Household - for ages 0-17 years) Not on file 09/15/2022 Sex and Gender Information Value Date Recorded Sex Assigned at Not on file Gender Identity Not on file Sexual Orientation Straight 11/09/2018 7: 56 AM EDT Job Start Date Occupation Industry Not on file Not on file Not on file documented as of this encounter Miscellaneous Notes * Telephone Encounter - Berta Lo OSA - 08/10/2023 1:01 PM EDT 08/10/23 Rec [facility] from [facility] for pt. Sent to [facility] Sent [facility] Records on 08/10/23. documented in this encounter Plan of Treatment [...] - season) 2022 Influenza Vaccine (FLU shot) (#1) 2023 11/19/2019, 02/14/2015 Colonoscopy 05/03/2025 05/03/2022, 04/08, 04/19/2018, Additional history exists Colorectal Cancer Screening 05/03/2025 Lipid Panel 05/26/2025 05/26/2020, 1004/2018, 12/29/2016, Additional history exists Diabetes Screening 09/10/2025 09/10/2022, 0 10/07/2021, 11/25/2020, Additional history exists HPV (Gardasil) Vaccine Aged Out No lo nger eligible based on patient's age to complete this topic MENINGOCOCCAL (MENACTRA/MENVEO) Aged Out No longer eligible based on patient's age to complete this topic documented as of this encounter Medical Devices Implanted Type Area Calciner Operator Device Identifier Shelf Expiration Date Model / Serial / Lot Clip Quick 2.8mm 230cm - [id number] Implanted:Qty: 1 on 05/03/2022 by Abi Gonzalez DO at ENDOSCOPY [facility] [employer] 09/06/2024 [id number] / [id number] documented as of this encounter Care Teams Supply Chain Assistant Relationship Specialty Start Date End Date Mikey Blood MD [address] [place] [address] PCP - General 04/05/02 documented as of this encounter
[2023-08-26] MEDS ORDERED: ONDANSETRON INJ 2 MG/ML 2 ML VIAL IV PRN (21:10)
[2023-08-26] MEDS ORDERED: POLYETHYLENE (MIRALAX) 17 GM PACK PO PRN (21:10)
[2023-08-26] MEDS: ACETAMINOPHEN 325 MG TAB PO PRN (21:24)
--- NOTE | 2023-08-27 | CT Scan Report ---
Exam(s): CT ABDOMEN + PELVIS With Contrast IV Amt: 95ml EXAM: CT Abdomen and Pelvis With Intravenous Contrast CLINICAL HISTORY: Reason for exam: thrombocytopenia, liver disease, hx of varices. TECHNIQUE: Axial computed tomography images of the abdomen and pelvis with intravenous contrast. CTDI is 28.14 mGy and DLP is 1696.83 mGy-cm. Automated exposure control was utilized for the study. A dose lowering technique was utilized adhering to the principles of ALARA. CONTRAST: Patient received 95ml of IV contrast COMPARISON: May 10, 2017 FINDINGS: Lung bases: Unremarkable. No mass. No consolidation. ABDOMEN: Liver: See below. Gallbladder and bile ducts: Unremarkable. No calcified stones. No ductal dilation. Pancreas: Unremarkable. No mass. No ductal dilation. Spleen: Unremarkable. No splenomegaly. Adrenals: Unremarkable. No mass. Kidneys and ureters: Unremarkable. No solid mass. No hydronephrosis. Stomach and bowel: There is a 6 cm diameter umbilical hernia containing a section of the transverse colon. No evidence of obstruction or acute inflammation. No mucosal thickening. PELVIS: Appendix: No findings to suggest acute appendicitis. Bladder: Unremarkable. No mass. Reproductive: Unremarkable as visualized. ABDOMEN and PELVIS: Intraperitoneal space: Unremarkable. No free air. No significant fluid collection. Bones/joints: Mild degenerative changes in the spine. No acute fracture or subluxation. Soft tissues: Mild diffuse anasarca over the torso. Vasculature: The spleen is enlarged measuring 23.5 cm craniocaudad, increased since previous when it measured 20 cm. There are multiple large splenic, gastric, and esophageal varices and a dilated portal vein measuring 19 mm characteristic of cirrhosis and portal venous hypertension. Lymph nodes: Unremarkable. No enlarged lymph nodes. IMPRESSION: 1. The spleen is enlarged measuring 23.5 cm craniocaudad, increased since previous when it measured 20 cm. There are multiple large splenic, gastric, and esophageal varices and a dilated portal vein measuring 19 mm characteristic of cirrhosis and portal venous hypertension. This is increased since previous. No ascites is seen. 2. There is a 6 cm diameter umbilical hernia containing a section of the transverse colon. No evidence of obstruction or acute inflammation. Electronically signed by: Russell Lopez MD 08/26/23 23:59 PM
[2023-08-27 07:17] LABS: Albumin Globulin Ratio 1.3 (0.9-2); Albumin Level 2.6 gm/dl (3.4-5.0); BUN Creatinine Ratio 16.1 (10-20); Bilirubin,Total 1.7 mg/dl (0.2-1.0); Calcium 7.8 mg/dl (8.6-10.3); Creatinine Clr Calc Pharmacy 132.7 ml/min; Est GFR (African American) 106.7 ml/min; Est GFR (Non-African American) 92.1 ml/min; Potassium 4.2 mmol/L (3.5-5.1); Total Protein 4.6 gm/dl (6.0-8.3)
[2023-08-27] MEDS: PANTOprazole 40 MG TAB PO SCH (08:16)
[2023-08-27] MEDS: nadoloL 40 MG TAB PO SCH (08:16)
[2023-08-27] MEDS: LISINOPRIL/HCTZ 20/12.5MG 1 TAB TAB PO SCH (08:17)
[2023-08-27 08:58] LABS: Hematocrit (blood only) 29.6 % (42.0-52.0); Hemoglobin 9.7 g/dl (14.0-18.0); Mean Corpuscular Hemoglobin 28.6 pg (25.0-34.0); Mean Corpuscular Hgb Conc 32.8 g/dL (32.0-36.0); Mean Corpuscular Volume 87.3 fL (80.0-100.0); Mean Platelet Volume 12.9 fL (9.4-12.4); Platelet Count 24 K/uL (130-400); RDW Coefficient of Variation 17.7 % (11.5-14.5); RDW Standard Deviation 55.9 fL (36.4-46.3); Red Blood Count 3.39 M/uL (4.70-6.10); White Blood Count 0.78 K/ul (4.8-10.8)
[2023-08-27 09:25] LABS: Basophils # (auto) 0.01 K/uL (0.00-0.20); Basophils % (auto) 1.3 %; Eosinophils # (auto) 0.07 K/uL (0.00-0.50); Immature Granulocytes # (auto) 0.01 K/uL (0.01-0.20); Immature Granulocytes % (auto) 1.3 %; Lymphocytes % (auto) 38.5 %; Monocytes # (auto) 0.08 K/uL (0.11-0.59); Monocytes % (auto) 10.3 %; Neutrophils # (auto) 0.31 K/uL (1.40-6.50); Neutrophils % (auto) 39.6 %
--- NOTE | 2023-08-27 09:26 | Oncology Consultation ---
Date of Consultation August 27, 2023 Assessment & Plan (1) Pancytopenia: (2) Splenomegaly: (3) Esophageal varices: (4) Portal hypertension: (5) Cirrhosis: Plan Gentleman with liver cirrhosis and resultant severe splenomegaly ( Spleen size of 23 cm)admitted for worsening pancytopenia. 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 However, recommend ruling out other potential causes of pancytopenia including vitamin deficiencies such as B12 and folate deficiency. Also recommend obtaining iron studies to evaluate for iron deficiency anemia in the setting of fatigue, significant varices and increased risk of bleeding. -If B12 and folate within normal limits, would recommend obtaining bone marrow biopsy either outpatient or inpatient to rule out without potential causes for pancytopenia especially since I anticipate that he will need liver transplant In the [id number] future. Thank you for this consult. Hematology follow peripherally while he is in the hospital. He will follow-up with [facility] hematology Upon discharge. History of Present Illness Reason for Consultation: Worsening pancytopenia Attending Physician: Bong Rodríguez MD History of Present Illness 53-year-old gentleman admitted to [facility] for worsening pancytopenia. He states that outpatient labs had revealed persistently worsening pancytopenia for which his PCP recommended ER evaluation. CBC obtained on arrival to the ER revealed WBC of 1.07, hemoglobin 9.9 with hematocrit of 30 and platelet count of 20,000. ANC was 570. CMP significant for total bilirubin of 1.7. CT abdomen and pelvis revealed spleen measuring 23.5 cm with multiple large splenic, gastric and esophageal varices as well as dilated portal vein measuring 19 mm characteristic of cirrhosis with portal venous hypertension. States that he was diagnosed with liver cirrhosis with splenomegaly in 2017 during hernia surgery. Has been followed by hepatology at [facility] and was initially being worked up for liver transplant after which he was told that he would not require a transplant. Previously seen by Dr. Knox of hematology at [facility] who felt pancytopenia was likely due to liver cirrhosis with splenic sequestration. Scheduled to follow-up with hematology at [facility] within the next month. He endorses fatigue. Denies fever, chills, night sweats or palpable lymphadenopathy. Allergies Allergy/AdvReac Type Severity Reaction Status Date / Time amoxicillin Allergy Intermediate RASH Verified 09/10/22 16:42 Home Medications Medication Instructions Recorded Confirmed Type acetaminophen 500 mg tablet 1,000 mg PO Q6H PRN Pain 09/10/22 08/26/23 History (Tylenol Extra Strength) ammonium lactate 12 % topical cream 1 applic topical BID PRN Other 09/10/22 08/26/23 History nadolol 20 mg tablet 20 mg PO DAILY 09/10/22 08/26/23 History omeprazole 20 mg capsule,delayed 20 mg PO QAM 09/10/22 08/26/23 History release ergocalciferol (vitamin D2) 1,250 50,000 unit PO WK 08/26/23 08/26/23 History mcg (50,000 unit) capsule lisinopril 20 1 tab PO DAILY 08/26/23 08/26/23 History mg-hydrochlorothiazide 12.5 mg tablet Patient History Surgical History (Updated 08/26/23 @ 20:43 by Quin Diaz PA-C) History of colonoscopy History of esophagogastroduodenoscopy (EGD) Family History (Updated 08/26/23 @ 20:43 by Quin Diaz PA-C) Grandfather (Paternal) Cancer Social History (Updated 08/26/23 @ 20:43 by Quin Diaz PA-C) Smoking Status: Never smoker Hx Alcohol Use: Yes Hx Substance Use: No Preferred Language: [place] Communication Ability: Effective Video Control Engineer Required: No Beliefs That Will Affect Care: None Current Living Situation: Significant Other Current Living Situation Comment: patient lives with girlfriend Other Information That Helps Us Care for You: No Feels Safe at Home: Yes Safety Concerns: Feels Safe At This Time Assistive Devices: Hospital Bed Results & Data Vital Signs (Past 12 Hours) Vital Signs Temp Pulse Pulse Resp BP Pulse Ox O2 Del Method 08/27/23 07:21 36.6 C 72 20 119/67 95 Room Air 08/27/23 04:59 36.5 C 71 18 123/65 96 Room Air 08/26/23 23:18 36.7 C 79 20 120/70 97 Room Air 08/26/23 22:03 74
--- NOTE | 2023-08-27 09:56 | Gastrointestinal Consultation ---
Date of Consultation August 27, 2023 Assessment & Plan (1) Cirrhosis: He has known cirrhosis and follows with hepatology in [place]. He has profound neutropenia and leukopenia as well as thrombocytopenia. While this certainly could be related to cirrhosis and hypersplenism I have not personally seen shin trophil counts this low purely related to liver disease. As per hematology they are pursuing other causes for this. I would consider isolation with his neutropenia as well. Consideration could be given to splenomegaly but he should be in [place] with his bag patcher before that is considered. In the past portosystemic shunting as been considered for this problem as well. I don't know if transplantation is done for this reason but again that would be a decision made by his bag patcher. Acutely there is nothing that I can do for him to help with this problem here. History of Present Illness Reason for Consultation: cirrhosis and pancytopenia Attending Physician: Bong Rodríguez MD History of Present Illness 53 year old man with known liver disease he says related to DIAS or MASH as it is now known. There is mention of alpha-1 antitrypsin deficiency but he tells me he has never heard of that. He follows with Hepatology in [place] and has also followed with hematology. He has moved to [place] and has not connected to a computer hardware developer there. His PCP has been checking his counts and told him to come to hospital here. Today his hemoglobin is 9.7, platelets 24K, WBC 780 and neutrophil count is 310. Overall he feels well and has no complaints. He gets annual EGD and colonoscopy and has been told he has varices but they are watching them, there has been no banding. He is not having any bleeding. Allergies Allergy/AdvReac Type Severity Reaction Status Date / Time amoxicillin Allergy Intermediate RASH Verified 09/10/22 16:42 Home Medications Medication Instructions Recorded Confirmed Type acetaminophen 500 mg tablet 1,000 mg PO Q6H PRN Pain 09/10/22 08/26/23 History (Tylenol Extra Strength) ammonium lactate 12 % topical cream 1 applic topical BID PRN Other 09/10/22 08/26/23 History nadolol 20 mg tablet 20 mg PO DAILY 09/10/22 08/26/23 History omeprazole 20 mg capsule,delayed 20 mg PO QAM 09/10/22 08/26/23 History release ergocalciferol (vitamin D2) 1,250 50,000 unit PO WK 08/26/23 08/26/23 History mcg (50,000 unit) capsule lisinopril 20 1 tab PO DAILY 08/26/23 08/26/23 History mg-hydrochlorothiazide 12.5 mg tablet Patient History Surgical History History of colonoscopy History of esophagogastroduodenoscopy (EGD) Family History Grandfather (Paternal) Cancer Social History Smoking Status: Never smoker Hx Alcohol Use: Yes Hx Substance Use: No Preferred Language: [place] Island[place] Communication Ability: Effective Portfolio Consultant Required: No Beliefs That Will Affect Care: None Current Living Situation: Significant Other Current Living Situation Comment: patient lives with girlfriend Other Information That Helps Us Care for You: No Feels Safe at Home: Yes Safety Concerns: Feels Safe At This Time Assistive Devices: Hospital Bed Review of Systems Review of Systems: All systems reviewed & are unremarkable except as noted in HPI & below Physical Exam Constitutional: WD/WN, vitals as above Eyes: PERRL, conjunctivae normal, anicteric sclerae Neck: trachea midline, no thyromegaly Respiratory: normal respiratory effort, lungs clear to auscultation Cardiovascular: RRR, no murmur, no edema Gastrointestinal (Abdomen): normal bowel sounds, soft, nontender, no hepatosplenomegaly Results & Data Vital Signs (Past 12 Hours) Vital Signs Temp Pulse Pulse Resp BP Pulse Ox O2 Del Method 08/27/23 08:00 Room Air 08/27/23 07:21 36.6 C 72 20 119/67 95 Room Air 08/27/23 04:59 36.5 C 71 18 123/65 96 Room Air 08/26/23 23:18 36.7 C 79 20 120/70 97 Room Air 08/26/23 22:03 74 Laboratory Results 08/27/23 08/26/23 08/26/23 Range/Units 06:19 20:00 16:43 WBC 0.78 L* 1.07 L (4.8-10.8) K/ul RBC 3.39 L 3.47 L (4.70-6.10) M/uL Hgb 9.7 L 9.9 L (14.0-18.0) g/dl Hct 29.6 L 30.0 L (42.0-52.0) % MCV 87.3 86.5 (80.0-100.0) fL MCH 28.6 28.5 (25.0-34.0) pg MCHC 32.8 33.0 (32.0-36.0) g/dL RDW Std Deviation 55.9 H 55.7 H (36.4-46.3) fL RDW Coeff of Eric 17.7 H 17.6 H (11.5-14.5) % Plt Count 24 L* 28 L* (130-400) K/uL MPV 12.9 H 11.7 (9.4-12.4) fL Immature Gran % (Auto) 1.3 0.0 % Neut % (Auto) 39.6 53.2 % Lymph % (Auto) 38.5 31.8 % Jackson % (Auto) 10.3 8.4 % Eos % (Auto) 9.0 4.7 % Baso % (Auto) 1.3 1.9 % Neut # (Auto) 0.31 L* 0.57 L* (1.40-6.50) K/uL Lymph # (Auto) 0.30 L 0.34 L (1.20-3.40) K/uL Jackson # (Auto) 0.08 L 0.09 L (0.11-0.59) K/uL Eos # (Auto) 0.07 0.05 (0.00-0.50) K/uL Baso # (Auto) 0.01 0.02 (0.00-0.20) K/uL Immature Gran # (Auto) 0.01 0.00 L (0.01-0.20) K/uL Peripher Smr Path Cons Pending PT 16.5 H (9.0-12.0) Seconds INR 1.6 H (0.9-1.1) Sodium 141 139 (136-145) mmol/L Potassium 4.2 3.8 (3.5-5.1) mmol/L Chloride 111 H 109 H (98-107) mmol/L Carbon Dioxide 26 27 (21-32) mmol/L Anion Gap 4 3 (3-11) BUN 15 15 (6-23) mg/dl Creatinine 0.93 1.10 (0.6-1.4) mg/dl Est Cr Clr Drug Dosing 132.7 112.0 ml/min Est GFR ( Amer) 106.7 87.1 ml/min Est GFR (Non-Af Amer) 92.1 75.2 ml/min BUN/Creatinine Ratio 16.1 13.6 (10-20) Glucose 88 80 (70-99(Fasting)) mg/dl Calcium 7.8 L 8.0 L (8.6-10.3) mg/dl Magnesium 1.7 (1.7-2.4) mg/dl Total Bilirubin 1.7 H 1.4 H (0.2-1.0) mg/dl AST 44 H 48 H (13-39) U/L ALT 29 31 (7-52) U/L Alkaline Phosphatase 61 71 (34-104) U/L Troponin I High Sens 4.6 (0-20) pg/ml Total Protein 4.6 L 5.0 L (6.0-8.3) gm/dl Albumin 2.6 L 2.8 L (3.4-5.0) gm/dl Globulin 2.0 L 2.2 L (2.5-4.0) gm/dl Albumin/Globulin Ratio 1.3 1.3 (0.9-2) TSH 1.703 (0.300-4.500) uIu/ml Urine Color Dark Yellow Urine Appearance Clear (Clear) Urine pH 7.5 (4.5-7.5) Ur Specific [place] > 1.045 H (1.000-1.030) Urine Protein Negative (Negative) Urine Glucose (UA) Negative (Negative) Urine Ketones Negative (Negative) Urine Blood Negative (Negative) Urine Nitrite Negative (Negative) Urine Bilirubin Negative (Negative) Urine Urobilinogen Negative (Negative) Ur Leukocyte Esterase Negative (Negative) Diagnostic Findings Chest X-Ray 08/26/23 15:07 SINGLE VIEW CHEST CLINICAL HISTORY: Generalized weakness FINDINGS: A PA chest radiograph is compared to study dated 09/10/2022. The cardiomediastinal silhouette is unremarkable. There is chronic elevation of the right hemidiaphragm and mild bibasilar atelectasis. The lungs and pleural spaces are otherwise clear. No pneumothorax is seen. The bony thorax is grossly intact. IMPRESSION: No active disease in the chest. ACT 112: Negative or not required by law. Electronically signed by: Ross Rae M.D. 08/26/2023 3:[address] 08/26/23 16:32 CT head/brain wo con CLINICAL HISTORY: headache, low platelets Technique: Contiguous axial CT images of the head were acquired from the base of the skull to the vertex without intravenous contrast administration. Images were viewed in brain, subdural and bone windows. Automated dose lowering techniques and/or adjustment according to patient size were utilized for this exam. Comparison: Comparison is made to CT abdomen pelvis 09/10/2022 Findings: The ventricles, basal cisterns, and cerebral sulci are normal. There is no acute intracranial hemorrhage or evidence of acute territorial infarction. Neither mass effect, shift of the midline structures, nor abnormal extra-axial fluid collections are shown. Imaged portions of the paranasal sinuses and mastoid air cells are clear. The orbits appear normal. There are no acute fractures of the calvaria or scalp swelling. Impression: No acute intracranial hemorrhage, no evidence of acute territorial infarction or other acute intracranial disease process. ACT 112: Negative or not required by law. Electronically signed by: Perry Dos Santos M.D. 08/26/2023 5:[address] 08/26/23 16:32 CT lumbar spine wo con CLINICAL HISTORY: low right back pain TECHNIQUE: Multidetector row helical CT of the lumbar spine was performed without administration of intravenous contrast. Coronal and sagittal reformations were obtained. Automated dose lowering techniques and/or adjustment according to patient size were utilized for this exam. CT DOSE: 1513.49 mGy.cm Comparison: None available at the time of this dictation. FINDINGS: For counting purposes, the last complete intervertebral disc space is considered L5-S1. No acute fractures are identified. Vertebral body heights and disk spaces are well maintained. Vertebral body alignment is within normal limits. Surrounding soft tissues are unremarkable. IMPRESSION: No evidence of acute bony injury. ACT 112: Negative or not required by law. Electronically signed by: Perry Dos Santos M.D. 08/26/2023 5:50 PM Abdomen/Pelvis CT 08/26/23 18:45 Exam(s): CT ABDOMEN + PELVIS With Contrast IV Amt: 95ml EXAM: CT Abdomen and Pelvis With Intravenous Contrast CLINICAL HISTORY: Reason for exam: thrombocytopenia, liver disease, hx of varices. TECHNIQUE: Axial computed tomography images of the abdomen and pelvis with intravenous contrast. CTDI is 28.14 mGy and DLP is 1696.83 mGy-cm. Automated exposure control was utilized for the study. A dose lowering technique was utilized adhering to the principles of ALARA. CONTRAST: Patient received 95ml of IV contrast COMPARISON: May 10, 2017 FINDINGS: Lung bases: Unremarkable. No mass. No consolidation. ABDOMEN: Liver: See below. Gallbladder and bile ducts: Unremarkable. No calcified stones. No ductal dilation. Pancreas: Unremarkable. No mass. No ductal dilation. Spleen: Unremarkable. No splenomegaly. Adrenals: Unremarkable. No mass. Kidneys and ureters: Unremarkable. No solid mass. No hydronephrosis. Stomach and bowel: There is a 6 cm diameter umbilical hernia containing a section of the transverse colon. No evidence of obstruction or acute inflammation. No mucosal thickening. PELVIS: Appendix: No findings to suggest acute appendicitis. Bladder: Unremarkable. No mass. Reproductive: Unremarkable as visualized. ABDOMEN and PELVIS: Intraperitoneal space: Unremarkable. No free air. No significant fluid collection. Bones/joints: Mild degenerative changes in the spine. No acute fracture or subluxation. Soft tissues: Mild diffuse anasarca over the torso. Vasculature: The spleen is enlarged measuring 23.5 cm craniocaudad, increased since previous when it measured 20 cm. There are multiple large splenic, gastric, and esophageal varices and a dilated portal vein measuring 19 mm characteristic of cirrhosis and portal venous hypertension. Lymph nodes: Unremarkable. No enlarged lymph nodes. IMPRESSION: 1. The spleen is enlarged measuring 23.5 cm craniocaudad, increased since previous when it measured 20 cm. There are multiple large splenic, gastric, and esophageal varices and a dilated portal vein measuring 19 mm characteristic of cirrhosis and portal venous hypertension. This is increased since previous. No ascites is seen. 2. There is a 6 cm diameter umbilical hernia containing a section of the transverse colon. No evidence of obstruction or acute inflammation. Electronically signed by: Russell Lopez MD 08/26/23 23:59 PM
[2023-08-27 11:27] LABS: Folate (Folic Acid),Ser orPlas 14.92 ng/ml (>5.38)
--- NOTE | 2023-08-27 16:46 | Hospitalist Progress Note ---
Date of Service August 27, 2023 Assessment & Plan (1) Pancytopenia: (2) Cirrhosis: (3) DIAS (nonalcoholic steatohepatitis): (4) Portal hypertension: (5) Esophageal varices: (6) HTN (hypertension): (7) GERD (gastroesophageal reflux disease): Plan 53 year old male with PMH cirrhosis due to alpha-1 antitrypsin deficiency and fatty liver disease, splenomegaly, esophageal varices, portal hypertension, chronic pancytopenia, HTN, vitamin D deficiency presented to ER for downtrending WBC and platelet levels in outpatient labs. He previously saw [facility] hematology but now moved t.[facility] and is trying to get established with [facility] hematology but has not seen yet. On admission, WBC: 1.0, RBC: 3.4, Hgb: 9.9, HCT: 30, PLT: 28. No current bleeding. Denies fever/chills CT head: No acute abnormality CT abdomen pelvis 1. The spleen is enlarged measuring 23.5 cm craniocaudad, increased since previous when it measured 20 cm. There are multiple large splenic, gastric, and esophageal varices and a dilated portal vein measuring 19 mm characteristic of cirrhosis and portal venous hypertension. This is increased since previous. No ascites is seen. 2. There is a 6 cm diameter umbilical hernia containing a section of the transverse colon. No evidence of obstruction or acute inflammation. Pancytopenia- WBC and platelet count trending down. Discussed with GI and hematology. Per hematology, likely due to hypersplenism. Vit B12, folate and iron level ordered per hematology. If negative, plan for bone marrow biopsy on Tuesday per hematology - Continue neutropenic precautions. If fever, will start empiric antibiotics. Labs in am Cirrhosis of liver with portal hypertension, esophageal/splenic and gastric varices and splenomegaly- CT A/P noted. Seen by GI. No new recommendations. Monitor. - Continue nadolol - Cirrhosis due to alpha-1 antitrypsin deficiency and fatty liver disease - Follows with liver team in [facility]. If decompensates, he will need transfer there. HTN- BP stable, on lisinopril, HCTZ GERD- continue PPI DVT ppx- SCDs. Chemoppx C/I with thrombocytopenia Dispo- TBD. Possible BM biopsy on Tuesday Time spent- Approx 50 mins Admission and Anticipated Discharge Date Admission Date: August 26, 2023 Subjective Patient was seen and examined at bedside. He feels tired but no other issues. Denies any history of complications from Cirrhosis. States he follows liver team at [facility] and was seen about a year ago. No fever, chills, CP, SOB, N/V. No bleeding. Has chronic LE edema. Discussed the GI and hematology recommendations. Review of Systems Review of Systems: All systems reviewed & are unremarkable except as noted in Subjective Physical Exam Physical Exam: General: Sitting comfortably in bed, not in distress, on room air HEENT: EOMI, STEFANIE, MMM Chest: Clear breath sounds bilaterally, no wheezes or crackles CVS: Regular rate and rhythm, normal heart sounds, no murmur Abdomen: Soft, non tender, not distended, normal bowel sounds Neuro: Awake, alert, oriented, conversing well, non focal Extremities: Chronic LE edema 2+ Results & Data Results & Data Vital Signs (Past 12 Hours) Vital Signs Temp Pulse Pulse Resp BP BP Pulse Ox 08/27/23 15:34 36.4 C L 68 16 121/63 97 08/27/23 13:48 82 08/27/23 11:22 36.9 C 62 20 126/68 97 08/27/23 08:00 08/27/23 07:21 36.6 C 72 20 119/67 95 08/27/23 04:59 36.5 C 71 18 123/65 96 O2 Del Method 08/27/23 15:34 Room Air 08/27/23 13:48 08/27/23 11:22 Room Air 08/27/23 08:00 Room Air 08/27/23 07:21 Room Air 08/27/23 04:59 Room Air Laboratory Results Short CBC 08/26/23 08/27/23 Range/Units 16:43 06:19 WBC 1.07 L 0.78 L* (4.8-10.8) K/ul Hgb 9.9 L 9.7 L (14.0-18.0) g/dl Hct 30.0 L 29.6 L (42.0-52.0) % Plt Count 28 L* 24 L* (130-400) K/uL BMP 08/26/23 08/27/23 16:43 06:19 Sodium 139 141 Potassium 3.8 4.2 Chloride 109 H 111 H Carbon Dioxide 27 26 BUN 15 15 Creatinine 1.10 0.93 Glucose 80 88 Calcium 8.0 L 7.8 L Liver Function 08/26/23 08/27/23 Range/Units 16:43 06:19 Total Bilirubin 1.4 H 1.7 H (0.2-1.0) mg/dl AST 48 H 44 H (13-39) U/L ALT 31 29 (7-52) U/L Alkaline Phosphatase 71 61 (34-104) U/L Albumin 2.8 L 2.6 L (3.4-5.0) gm/dl Urine 08/26/23 Range/Units 20:00 Urine Color Dark Yellow Urine Appearance Clear (Clear) Urine pH 7.5 (4.5-7.5) Ur Specific [place] > 1.045 H (1.000-1.030) Urine Protein Negative (Negative) Urine Glucose (UA) Negative (Negative)
[2023-08-27] MEDS: diphenhydrAMINE Capsule 25 MG CAP PO PRN (22:10)
[2023-08-28 07:11] LABS: BUN Creatinine Ratio 12.9 (10-20); Calcium 8.1 mg/dl (8.6-10.3); Est GFR (African American) 96.6 ml/min; Est GFR (Non-African American) 83.3 ml/min; Magnesium 1.7 mg/dl (1.7-2.4); Potassium 4.1 mmol/L (3.5-5.1)
[2023-08-28 07:17] LABS: Hematocrit (blood only) 30.6 % (42.0-52.0); Mean Corpuscular Hemoglobin 28.7 pg (25.0-34.0); Mean Corpuscular Hgb Conc 32.7 g/dL (32.0-36.0); Mean Corpuscular Volume 87.7 fL (80.0-100.0); Platelet Count 26 K/uL (130-400); RDW Coefficient of Variation 17.4 % (11.5-14.5); Red Blood Count 3.49 M/uL (4.70-6.10); White Blood Count 1.04 K/ul (4.8-10.8)
[2023-08-28 07:39] LABS: Basophils # (auto) 0.01 K/uL (0.00-0.20); Eosinophils # (auto) 0.06 K/uL (0.00-0.50); Eosinophils % (auto) 5.8 %; Lymphocytes # (auto) 0.34 K/uL (1.20-3.40); Lymphocytes % (auto) 32.7 %; Monocytes % (auto) 9.6 %; Neutrophils # (auto) 0.53 K/uL (1.40-6.50); Neutrophils % (auto) 50.9 %
--- NOTE | 2023-08-28 14:36 | Hospitalist Progress Note ---
Date of Service August 28, 2023 Assessment & Plan (1) Pancytopenia: (2) Cirrhosis: (3) Portal hypertension: (4) Esophageal varices: (5) HTN (hypertension): (6) GERD (gastroesophageal reflux disease): Plan 53 year old male with PMH cirrhosis due to alpha-1 antitrypsin deficiency and fatty liver disease, splenomegaly, esophageal varices, portal hypertension, chronic pancytopenia, HTN, vitamin D deficiency presented to ER for downtrending WBC and platelet levels in outpatient labs. He previously saw [facility] hematology but now moved t.o [facility] and is trying to get established with [facility] hematology but has not seen yet. On admission, WBC: 1.0, RBC: 3.4, Hgb: 9.9, HCT: 30, PLT: 28. No current bleeding. Denies fever/chills CT head: No acute abnormality CT abdomen pelvis 1. The spleen is enlarged measuring 23.5 cm craniocaudad, increased since previous when it measured 20 cm. There are multiple large splenic, gastric, and esophageal varices and a dilated portal vein measuring 19 mm characteristic of cirrhosis and portal venous hypertension. This is increased since previous. No ascites is seen. 2. There is a 6 cm diameter umbilical hernia containing a section of the transverse colon. No evidence of obstruction or acute inflammation. Pancytopenia- WBC and platelet count improving WBC 1.07->0.78->1.04, Absolute neutrophil 0.57->0.31->0.53, Plt 28->24->26. B12 and folate level normal, iron studies show iron deficiency. Discussed with GI and hematology. Per hematology, likely due to hypersplenism. Possible plan for bone marrow biopsy tomorrow per hematology. Iron supplementation for iron deficiency. - Continue neutropenic precautions. If fever, will start empiric antibiotics. Labs in am Cirrhosis of liver with portal hypertension, esophageal/splenic and gastric varices and splenomegaly- CT A/P noted. Seen by GI. No new recommendations. Monitor. - Continue nadolol - Cirrhosis due to alpha-1 antitrypsin deficiency and fatty liver disease - Follows with liver team in [facility]. If decompensates, he will need transfer there. HTN- BP stable, on lisinopril, HCTZ GERD- continue PPI DVT ppx- SCDs. Chemoppx C/I with thrombocytopenia Dispo- TBD. Possible BM biopsy on Tuesday Time spent- Approx 35 mins Admission and Anticipated Discharge Date Admission Date: August 26, 2023 Subjective Patient was seen and examined at bedside. Feels fine. No new issues. Discussed about nursing concern if he is depressed or mood is down. States this is how he is normally and denies depression or need to see a psychiatrist. Discussed the labs with slight improvement in his pancytopenia. Leg swelling improved with leg elevation. Review of Systems Review of Systems: All systems reviewed & are unremarkable except as noted in Subjective Physical Exam Physical Exam: General: Sitting comfortably in bed, not in distress, on room air HEENT: EOMI, STEFANIE, MMM Chest: Clear breath sounds bilaterally, no wheezes or crackles CVS: Regular rate and rhythm, normal heart sounds, no murmur Abdomen: Soft, non tender, not distended, normal bowel sounds Neuro: Awake, alert, oriented, conversing well, non focal Extremities: Chronic LE edema 1+ Results & Data Results & Data Vital Signs (Past 12 Hours) Vital Signs Temp Pulse Pulse Resp BP Pulse Ox O2 Del Method 08/28/23 14:13 65 08/28/23 11:21 37.0 C 65 18 117/66 97 Room Air 08/28/23 08:25 Room Air 08/28/23 07:39 36.7 C 71 19 113/65 96 Room Air 08/28/23 07:27 62 08/28/23 04:00 36.7 C 63 20 116/68 94 Room Air Laboratory Results Short CBC 08/28/23 Range/Units 06:31 WBC 1.04 L (4.8-10.8) K/ul Hgb 10.0 L (14.0-18.0) g/dl Hct 30.6 L (42.0-52.0) % Plt Count 26 L* (130-400) K/uL BMP 08/28/23 06:31 Sodium 140 Potassium 4.1 Chloride 112 H Carbon Dioxide 26 BUN 13 Creatinine 1.01 Glucose 90 Calcium 8.1 L
[2023-08-28] MEDS: FERROUS SULFATE 325 MG TAB PO SCH (15:49)
[2023-08-29 07:05] LABS: Hematocrit (blood only) 30.5 % (42.0-52.0); Mean Corpuscular Hemoglobin 28.7 pg (25.0-34.0); Mean Corpuscular Hgb Conc 32.8 g/dL (32.0-36.0); Mean Corpuscular Volume 87.4 fL (80.0-100.0); Platelet Count 23 K/uL (130-400); RDW Coefficient of Variation 17.3 % (11.5-14.5); RDW Standard Deviation 55.3 fL (36.4-46.3); Red Blood Count 3.49 M/uL (4.70-6.10); White Blood Count 1.29 K/ul (4.8-10.8)
[2023-08-29 07:19] LABS: Ovalocytes 1+; Tear Drop Cells 1+
[2023-08-29 07:20] LABS: Basophils # (auto) 0.01 K/uL (0.00-0.20); Basophils % (auto) 0.8 %; Eosinophils % (auto) 7.8 %; Immature Granulocytes # (auto) 0.01 K/uL (0.01-0.20); Immature Granulocytes % (auto) 0.8 %; Lymphocytes # (auto) 0.44 K/uL (1.20-3.40); Lymphocytes % (auto) 34.1 %; Monocytes # (auto) 0.11 K/uL (0.11-0.59); Monocytes % (auto) 8.5 %; Neutrophils # (auto) 0.62 K/uL (1.40-6.50)
[2023-08-29] MEDS: ACETAMINOPHEN 1000 MG/100 ML IV IV ONE (12:00)
--- NOTE | 2023-08-29 12:09 | Hospitalist Progress Note ---
Date of Service August 29, 2023 Assessment & Plan (1) Pancytopenia: (2) Cirrhosis: (3) Portal hypertension: (4) Esophageal varices: (5) HTN (hypertension): (6) GERD (gastroesophageal reflux disease): Plan 53 year old male with PMH cirrhosis due to alpha-1 antitrypsin deficiency and fatty liver disease, splenomegaly, esophageal varices, portal hypertension, chronic pancytopenia, HTN, vitamin D deficiency presented to ER for downtrending WBC and platelet levels in outpatient labs. He previously saw [facility] hematology but now moved t.o [facility] and is trying to get established with [facility] hematology but has not seen yet. On admission, WBC: 1.0, RBC: 3.4, Hgb: 9.9, HCT: 30, PLT: 28. No current bleeding. Denies fever/chills CT head: No acute abnormality CT abdomen pelvis 1. The spleen is enlarged measuring 23.5 cm craniocaudad, increased since previous when it measured 20 cm. There are multiple large splenic, gastric, and esophageal varices and a dilated portal vein measuring 19 mm characteristic of cirrhosis and portal venous hypertension. This is increased since previous. No ascites is seen. 2. There is a 6 cm diameter umbilical hernia containing a section of the transverse colon. No evidence of obstruction or acute inflammation. Pancytopenia- Overall stable, WBC 1.07->0.78->1.04->1.29, Absolute neutrophil 0.57->0.31->0.53->0.62, Plt 28->24->26->23. B12 and folate level normal, iron studies show iron deficiency. Discussed with GI and hematology. Per hematology, likely due to hypersplenism. plan for IR bone marrow biopsy today and n.p.o. for the same. Iron supplementation for iron deficiency. - Continue neutropenic precautions. If fever, will start empiric antibiotics. Labs in am Cirrhosis of liver with portal hypertension, esophageal/splenic and gastric varices and splenomegaly- CT A/P noted. Seen by GI. No new recommendations. Monitor. - Continue nadolol - Cirrhosis due to alpha-1 antitrypsin deficiency and fatty liver disease - Follows with liver team in [facility]. If decompensates, he will need transfer there. HTN- BP stable, on lisinopril, HCTZ GERD- continue PPI DVT ppx- SCDs. Ambulation. Chemoppx C/I with thrombocytopenia Dispo- TBD. IR BM biopsy later today Time spent- Approx 35 mins Admission and Anticipated Discharge Date Admission Date: August 26, 2023 Subjective Patient was seen and examined at bedside. He denies any new issues. He is awaiting for bone marrow biopsy which is scheduled for later today. He is n.p.o. for the same. No fever, chills, chest pain, shortness of breath, nausea or vomiting. Review of Systems Review of Systems: All systems reviewed & are unremarkable except as noted in Subjective Physical Exam Physical Exam: General: Sitting comfortably in bed, not in distress, on room air HEENT: EOMI, STEFANIE, MMM Chest: Clear breath sounds bilaterally, no wheezes or crackles CVS: Regular rate and rhythm, normal heart sounds, no murmur Abdomen: Soft, non tender, not distended, normal bowel sounds Neuro: Awake, alert, oriented, conversing well, non focal Extremities: Chronic LE edema 1+ Results & Data Results & Data Vital Signs (Past 12 Hours) Vital Signs Temp Pulse Pulse Resp BP Pulse Ox O2 Del Method 08/29/23 11:25 36.8 C 60 16 112/59 L 97 Room Air 08/29/23 07:52 36.6 C 122 H 20 112/56 L 96 Room Air 08/29/23 07:21 Room Air 08/29/23 07:00 59 L 08/29/23 06:18 63 109/62 95 Room Air 08/29/23 03:56 36.5 C 60 18 97/57 L 94 Room Air 08/29/23 00:25 36.7 C 63 20 103/59 L 95 Room Air Laboratory Results Short CBC 08/29/23 Range/Units 05:46 WBC 1.29 L (4.8-10.8) K/ul Hgb 10.0 L (14.0-18.0) g/dl Hct 30.5 L (42.0-52.0) % Plt Count 23 L* (130-400) K/uL
[2023-08-29] MEDS: fentaNYL citrate PF 100 MCG/2 ML VIAL ONE (12:20)
--- NOTE | 2023-08-29 15:34 | CT Scan Report ---
CT-guided bone marrow biopsy INDICATION: Pancytopenia PROCEDURE: Procedure and risks were explained. Informed consent was obtained. A final timeout was com pleted. The patient was placed prone on the CT exam table. The left gluteal region was prepped and dr aped in sterile fashion. 1% lidocaine was utilized for skin anesthesia. The patient received 1 g Tyle nol and 50 mcg fentanyl IV. Utilizing CT guidance, an 11-gauge bone biopsy needle was advanced into the left iliac bone. Multiple aspirates and one small bone core was obtained and given to the lab for review. The needle was remov ed and Band-Aid applied. The patient tolerated the procedure well. Vital signs will be [facility]. IMPRESSION: Bone marrow biopsy as above. Performed, dictated, and signed by Donny Gonzalez PA-C; to be co-signed by Dr. Justin Reyes. Electronically signed by: Justin Reyes M.D. 08/29/2023 3:36 PM
[2023-08-30 06:46] LABS: BUN Creatinine Ratio 13.7 (10-20); Calcium 7.9 mg/dl (8.6-10.3); Creatinine Clr Calc Pharmacy 96.6 ml/min; Est GFR (African American) 75.4 ml/min; Potassium 3.9 mmol/L (3.5-5.1)
[2023-08-30 06:58] LABS: Basophils # (auto) 0.02 K/uL (0.00-0.20); Basophils % (auto) 1.4 %; Eosinophils # (auto) 0.09 K/uL (0.00-0.50); Eosinophils % (auto) 6.2 %; Hematocrit (blood only) 29.8 % (42.0-52.0); Hemoglobin 9.8 g/dl (14.0-18.0); Lymphocytes # (auto) 0.51 K/uL (1.20-3.40); Lymphocytes % (auto) 35.2 %; Mean Corpuscular Hemoglobin 28.3 pg (25.0-34.0); Mean Corpuscular Hgb Conc 32.9 g/dL (32.0-36.0); Mean Corpuscular Volume 86.1 fL (80.0-100.0); Monocytes # (auto) 0.12 K/uL (0.11-0.59); Monocytes % (auto) 8.3 %; Neutrophils # (auto) 0.71 K/uL (1.40-6.50); Neutrophils % (auto) 48.9 %; Platelet Count 25 K/uL (130-400); Polychromasia 1+; RDW Coefficient of Variation 17.4 % (11.5-14.5); RDW Standard Deviation 54.6 fL (36.4-46.3); Red Blood Count 3.46 M/uL (4.70-6.10); White Blood Count 1.45 K/ul (4.8-10.8)
--- NOTE | 2023-08-30 12:23 | Discharge Summary ---
Date of Service August 30, 2023 Admission HPI Per Admitting Provider Patient is 53 year old male with PMH cirrhosis due to alpha-1 antitrypsin deficiency and fatty liver disease, splenomegaly, esophageal varices, portal hypertension, chronic pancytopenia, HTN, vitamin D deficiency presented to ER for complaint of abnormal outpatient labs. History obtained from patient, patient's and outpatient chart review. Patient states now following with new PCP in [facility] and has had labs recently with reported downtrending WBC and platelet levels. He previously saw [facility] hematology but now moved to [facility] and is trying to get established with [facility] hematology but has not seen yet. Patient states is noticing at end of day bilateral ankle edema x 2 months. He states has not been taking nadolol regularly as he forgets to take it. Also reports some right lower back pain which he thought may be from lifting something. Denies LE or saddle paresthesias or LE pain. States has been fatigued for months. Denies any noted increased abdominal girth. Does not weigh himself regularly. He states a couple times has noted some dried blood on his pillowcase upon awakening in the morning that he feels may be coming from gingival bleeding but denies this happening recently. Denies any noted hematuria, hematochezia, melena, epistaxis, noted gingival bleeding with teeth brushing. Reports some constipation alternating with loose bowel movements. Having slight CLEMENTS's intermittently. Denies fever/chills, diaphoresis, N/V, dizziness, syncope, vision changes, neck pain, CP, SOB, orthopnea, palpitations, cough, sore throat, choking, rhinorrhea, abdominal pain, paresthesias, extremity weakness, rashes, urinary symptoms. Admission Exam Per Admitting Provider General: no distress, obese Head: normocephalic, atraumatic Eyes: PERRL, EOM's intact, conjunctiva non-injected, anicteric ENT: normal inspection external ears, nose, mucous membranes moist Neck: supple, trachea midline Lungs: clear, no respiratory distress, no wheezing/rhonchi/rales CV: RRR, + murmur, 1-2+ pretibial edema Abd: protuberant, normal BS, soft, non-tender Ext: no cyanosis, no calf tenderness Neuro: A&O x 3, no focal deficits noted, normal affect Skin: warm, dry Principal Diagnosis Pancytopenia Discharge Exam General: Lying comfortably in bed, not in distress, on room air HEENT: EOMI, STEFANIE, MMM Chest: Clear breath sounds bilaterally, no wheezes or crackles CVS: Regular rate and rhythm, normal heart sounds Abdomen: Soft, non tender, not distended, normal bowel sounds Neuro: Awake, alert, oriented, conversing well, non focal Extremities: Chronic LE edema 1+ Discharge Data Allergies Allergy/AdvReac Type Severity Reaction Status Date / Time amoxicillin Allergy Intermediate RASH Verified 09/10/22 16:42 Consultations 08/26/23 18:45 ED Decision to Admit Stat 08/27/23 09:14 Consult Hematology Routine 08/27/23 09:16 Consult Gastroenterology Routine Ordered Studies 08/26/23 16:32 CT head/brain wo con Stat CT lumbar spine wo con Stat 08/26/23 18:45 CT Abd and Pelvis [CT abd pelvis IV con only] Stat 08/29/23 07:33 IR bone marrow bx & asp Routine Laboratory Results WBC 1.45 K/ul (4.8-10.8) L 08/30/23 05:25 RBC 3.46 M/uL (4.70-6.10) L 08/30/23 05:25 Hgb 9.8 g/dl (14.0-18.0) L 08/30/23 05:25 Hct 29.8 % (42.0-52.0) L 08/30/23 05:25 MCV 86.1 fL (80.0-100.0) 08/30/23 05:25 MCH 28.3 pg (25.0-34.0) 08/30/23 05:25 MCHC 32.9 g/dL (32.0-36.0) 08/30/23 05:25 RDW Std Deviation 54.6 fL (36.4-46.3) H 08/30/23 05:25 RDW Coeff of Eric 17.4 % (11.5-14.5) H 08/30/23 05:25 Plt Count 25 K/uL (130-400) L* 08/30/23 05:25 MPV 12.0 fL (9.4-12.4) 08/28/23 06:31 Immature Gran % (Auto) 0.0 % 08/30/23 05:25 Neut % (Auto) 48.9 % 08/30/23 05:25 Lymph % (Auto) 35.2 % 08/30/23 05:25 [place] % (Auto) 8.3 % 08/30/23 05:25 Eos % (Auto) 6.2 % 08/30/23 05:25 Baso % (Auto) 1.4 % 08/30/23 05:25 Neut # (Auto) 0.71 K/uL (1.40-6.50) L* 08/30/23 05:25 Lymph # (Auto) 0.51 K/uL (1.20-3.40) L 08/30/23 05:25 [place] # (Auto) 0.12 K/uL (0.11-0.59) 08/30/23 05:25 Eos # (Auto) 0.09 K/uL (0.00-0.50) 08/30/23 05:25 Baso # (Auto) 0.02 K/uL (0.00-0.20) 08/30/23 05:25 Immature Gran # (Auto) 0.00 K/uL (0.01-0.20) L 08/30/23 05:25 Polychromasia 1+ 08/30/23 05:25 Tear Drop Cells 1+ 08/29/23 05:46 Ovalocytes 1+ 08/29/23 05:46 Peripher Smr Path Cons 08/26/23 16:43 PT 16.5 Seconds (9.0-12.0) H 08/26/23 16:43 INR 1.6 (0.9-1.1) H 08/26/23 16:43 Sodium 139 mmol/L (136-145) 08/30/23 05:25 Potassium 3.9 mmol/L (3.5-5.1) 08/30/23 05:25 Chloride 110 mmol/L (98-107) H 08/30/23 05:25 Carbon Dioxide 26 mmol/L (21-32) 08/30/23 05:25 Anion Gap 3 (3-11) 08/30/23 05:25 BUN 17 mg/dl (6-23) 08/30/23 05:25 Creatinine 1.24 mg/dl (0.6-1.4) 08/30/23 05:25 Est Cr Clr Drug Dosing 96.6 ml/min 08/30/23 05:25 Est GFR ( Amer) 75.4 ml/min 08/30/23 05:25 Est GFR (Non-Af Amer) 65.0 ml/min 08/30/23 05:25 BUN/Creatinine Ratio 13.7 (10-20) 08/30/23 05:25 Glucose 86 mg/dl (70-99(Fasting)) 08/30/23 05:25 Calcium 7.9 mg/dl (8.6-10.3) L 08/30/23 05:25 Magnesium 1.7 mg/dl (1.7-2.4) 08/28/23 06:31 Iron 53 mcg/dl (35-175) 08/27/23 06:19 TIBC 279 mcg/dl (250-450) 08/27/23 06:19 Unsaturated IBC 226 mcg/dl (155-355) 08/27/23 06:19 Transferrin % Sat 19 % (20-50) L 08/27/23 06:19 Ferritin 10.0 ng/ml (8-388) 08/27/23 06:19 Total Bilirubin 1.7 mg/dl (0.2-1.0) H 08/27/23 06:19 AST 44 U/L (13-39) H 08/27/23 06:19 ALT 29 U/L (7-52) 08/27/23 06:19 Alkaline Phosphatase 61 U/L (34-104) 08/27/23 06:19 Troponin I High Sens 4.6 pg/ml (0-20) 08/26/23 16:43 Total Protein 4.6 gm/dl (6.0-8.3) L 08/27/23 06:19 Albumin 2.6 gm/dl (3.4-5.0) L 08/27/23 06:19 Globulin 2.0 gm/dl (2.5-4.0) L 08/27/23 06:19 Albumin/Globulin Ratio 1.3 (0.9-2) 08/27/23 06:19 Vitamin B12 861 pg/ml (180-914) 08/27/23 06:19 Folate 14.92 ng/ml (>5.38) 08/27/23 06:19 TSH 1.703 uIu/ml (0.300-4.500) 08/26/23 16:43 Urine Color Dark Yellow 08/26/23 20:00 Urine Appearance Clear (Clear) 08/26/23 20:00 Urine pH 7.5 (4.5-7.5) 08/26/23 20:00 Ur Specific [place] > 1.045 (1.000-1.030) H 08/26/23 20:00 Urine Protein Negative (Negative) 08/26/23 20:00 Urine Glucose (UA) Negative (Negative) 08/26/23 20:00 Urine Ketones Negative (Negative) 08/26/23 20:00 Urine Blood Negative (Negative) 08/26/23 20:00 Urine Nitrite Negative (Negative) 08/26/23 20:00 Urine Bilirubin Negative (Negative) 08/26/23 20:00 Urine Urobilinogen Negative (Negative) 08/26/23 20:00 Ur Leukocyte Esterase Negative (Negative) 08/26/23 20:00 Impressions Chest X-Ray 08/26/23 15:07 SINGLE VIEW CHEST CLINICAL HISTORY: Generalized weakness FINDINGS: A PA chest radiograph is compared to study dated 09/10/2022. The cardiomediastinal silhouette is unremarkable. There is chronic elevation of the right hemidiaphragm and mild bibasilar atelectasis. The lungs and pleural spaces are otherwise clear. No pneumothorax is seen. The bony thorax is grossly intact. IMPRESSION: No active disease in the chest. ACT 112: Negative or not required by law. Electronically signed by: Ross Rae M.D. 08/26/2023 3:[address] 08/26/23 16:32 CT head/brain wo con CLINICAL HISTORY: headache, low platelets Technique: Contiguous axial CT images of the head were acquired from the base of the skull to the vertex without intravenous contrast administration. Images were viewed in brain, subdural and bone windows. Automated dose lowering techniques and/or adjustment according to patient size were utilized for this exam. Comparison: Comparison is made to CT abdomen pelvis 09/10/2022 Findings: The ventricles, basal cisterns, and cerebral sulci are normal. There is no acute intracranial hemorrhage or evidence of acute territorial infarction. Neither mass effect, shift of the midline structures, nor abnormal extra-axial fluid collections are shown. Imaged portions of the paranasal sinuses and mastoid air cells are clear. The orbits appear normal. There are no acute fractures of the calvaria or scalp swelling. Impression: No acute intracranial hemorrhage, no evidence of acute territorial infarction or other acute intracranial disease process. ACT 112: Negative or not required by law. Electronically signed by: Perry Dos Santos M.D. 08/26/2023 5:[address] 08/26/23 16:32 CT lumbar spine wo con CLINICAL HISTORY: low right back pain TECHNIQUE: Multidetector row helical CT of the lumbar spine was performed without administration of intravenous contrast. Coronal and sagittal reformations were obtained. Automated dose lowering techniques and/or adjustment according to patient size were utilized for this exam. CT DOSE: 1513.49 mGy.cm Comparison: None available at the time of this dictation. FINDINGS: For counting purposes, the last complete intervertebral disc space is considered L5-S1. No acute fractures are identified. Vertebral body heights and disk spaces are well maintained. Vertebral body alignment is within normal limits. Surrounding soft tissues are unremarkable. IMPRESSION: No evidence of acute bony injury. ACT 112: Negative or not required by law. Electronically signed by: Perry Dos Santos M.D. 08/26/2023 5:50 PM Abdomen/Pelvis CT 08/26/23 18:45 Exam(s): CT ABDOMEN + PELVIS With Contrast IV Amt: 95ml EXAM: CT Abdomen and Pelvis With Intravenous Contrast CLINICAL HISTORY: Reason for exam: thrombocytopenia, liver disease, hx of varices. TECHNIQUE: Axial computed tomography images of the abdomen and pelvis with intravenous contrast. CTDI is 28.14 mGy and DLP is 1696.83 mGy-cm. Automated exposure control was utilized for the study. A dose lowering technique was utilized adhering to the principles of ALARA. CONTRAST: Patient received 95ml of IV contrast COMPARISON: May 10, 2017 FINDINGS: Lung bases: Unremarkable. No mass. No consolidation. ABDOMEN: Liver: See below. Gallbladder and bile ducts: Unremarkable. No calcified stones. No ductal dilation. Pancreas: Unremarkable. No mass. No ductal dilation. Spleen: Unremarkable. No splenomegaly. Adrenals: Unremarkable. No mass. Kidneys and ureters: Unremarkable. No solid mass. No hydronephrosis. Stomach and bowel: There is a 6 cm diameter umbilical hernia containing a section of the transverse colon. No evidence of obstruction or acute inflammation. No mucosal thickening. PELVIS: Appendix: No findings to suggest acute appendicitis. Bladder: Unremarkable. No mass. Reproductive: Unremarkable as visualized. ABDOMEN and PELVIS: Intraperitoneal space: Unremarkable. No free air. No significant fluid collection. Bones/joints: Mild degenerative changes in the spine. No acute fracture or subluxation. Soft tissues: Mild diffuse anasarca over the torso. Vasculature: The spleen is enlarged measuring 23.5 cm craniocaudad, increased since previous when it measured 20 cm. There are multiple large splenic, gastric, and esophageal varices and a dilated portal vein measuring 19 mm characteristic of cirrhosis and portal venous hypertension. Lymph nodes: Unremarkable. No enlarged lymph nodes. IMPRESSION: 1. The spleen is enlarged measuring 23.5 cm craniocaudad, increased since previous when it measured 20 cm. There are multiple large splenic, gastric, and esophageal varices and a dilated portal vein measuring 19 mm characteristic of cirrhosis and portal venous hypertension. This is increased since previous. No ascites is seen. 2. There is a 6 cm diameter umbilical hernia containing a section of the transverse colon. No evidence of obstruction or acute inflammation. Electronically signed by: Russell Lopez MD 08/26/23 23:59 PM Bone Marrow Biopsy w/ CT 08/29/23 07:33 CT-guided bone marrow biopsy INDICATION: Pancytopenia PROCEDURE: Procedure and risks were explained. Informed consent was obtained. A final timeout was completed. The patient was placed prone on the CT exam table. The left gluteal region was prepped and draped in sterile fashion. 1% lidocaine was utilized for skin anesthesia. The patient received 1 g Tylenol and 50 mcg fentanyl IV. Utilizing CT guidance, an 11-gauge bone biopsy needle was advanced into the left iliac bone. Multiple aspirates and one small bone core was obtained and given to the lab for review. The needle was removed and Band-Aid applied. The patient tolerated the procedure well. Vital signs will be monitored on the floor. IMPRESSION: Bone marrow biopsy as above. Performed, dictated, and signed by Donny Gonzalez PA-C; to be co-signed by Dr. Justin Reyes. Electronically signed by: Justin Reyes M.D. 08/29/2023 3:36 PM Hospital Course (1) Pancytopenia: (2) Cirrhosis: (3) Portal hypertension: (4) Esophageal varices: (5) HTN (hypertension): (6) GERD (gastroesophageal reflux disease): Plan 53 year old male with PMH cirrhosis due to alpha-1 antitrypsin deficiency and fatty liver disease, splenomegaly, esophageal varices, portal hypertension, chronic pancytopenia, HTN, vitamin D deficiency presented to ER for downtrending WBC and platelet levels in outpatient labs. He previously saw [facility] hematology but now [facility] and is trying to get established with [facility] hematology but has not seen yet. On admission, WBC: 1.0, RBC: 3.4, Hgb: 9.9, HCT: 30, PLT: 28. No current bleeding. Denies fever/chills CT head: No acute abnormality CT abdomen pelvis 1. The spleen is enlarged measuring 23.5 cm craniocaudad, increased since previous when it measured 20 cm. There are multiple large splenic, gastric, and esophageal varices and a dilated portal vein measuring 19 mm characteristic of cirrhosis and portal venous hypertension. This is increased since previous. No ascites is seen. 2. There is a 6 cm diameter umbilical hernia containing a section of the transverse colon. No evidence of obstruction or acute inflammation. CT guided bone marrow biopsy 08/28- results awaited Pancytopenia- Overall stable to improving and no decompensation while admitted, WBC 1.07->0.78->1.04->1.29->1.45, Absolute neutrophil 0.57->0.31->0.53->0.62->0.71, Plt 28->24->26->23->25. B12 and folate level normal, iron studies show iron deficiency. Discussed with GI and hematology. Per hematology, likely due to hypersplenism. S/p IR bone marrow biopsy yesterday- results pending. Discussed with Dr Glasgow today- patient can be discharged home and she will get the bone marrow biopsy results faxed to his heating and air conditioning mechanic once available. Continue iron supplementation for iron deficiency. Continue neutropenic precautions. Recommended to seek medical attention immediately if he has fever. Cirrhosis of liver with portal hypertension, esophageal/splenic and gastric varices and splenomegaly- CT A/P noted. Seen by GI. No new recommendations. Monitor. - Continue nadolol - Cirrhosis due to alpha-1 antitrypsin deficiency and fatty liver disease - Recommend to follow up with his liver team in [facility]. Our nurse navigator will try to schedule an appointment as soon as possible HTN- BP stable, on lisinopril, HCTZ GERD- continue PPI Total Time Total Time Spent Total Time Spent (In Minutes): 33 Discharge Plan Discharge Items Patient Disposition: Home - Self-Care Reason For Visit: PANCYTOPENIA Discharge Diagnosis: Pancytopenia Activity: Resume your previous activity Non-emergency contact: Primary Care Provider Call non-emergency contact if: you have any medication questions, your symptoms worsen and you have a fever Follow-up/Referrals: Liliana Dan PA-C [Other] - 09/05/23 1:30 pm Suzanne Alex CNP [Primary Care Provider] - 09/05/23 11:00 am Guzman Samuel MD [Outside Practitioners] - (The Hepatology office will contact you for an appointment.) Diet: Regular Addtl Attending Provider Instructions: Your white count/neutrophil is still low although slowly improving. We recommend you not to get around sick people and take precautions to avoid infection. Your bone marrow biopsy is still pending and our heating and air conditioning mechanic will fax the results to your heating and air conditioning mechanic. Follow up with your family doctor, liver doctor and blood doctor. Recommend repeat blood work in 1 week to ensure the blood counts are stable. Pending Studies at Discharge: Yes Studies:: Bone marrow biopsy Stand-Alone Forms: My [facility], Work/School Release, Smoking Cessation Medications and DC Order Prescriptions: New ferrous sulfate 325 mg (65 mg iron) Tablet,Delayed Release (Dr/Ec) 325 mg PO QAM Qty: 30 0RF Continued acetaminophen [Tylenol Extra Strength] 500 mg Tablet 1,000 mg PO Q6H PRN (Reason: Pain) nadolol 20 mg tablet 20 mg PO DAILY Rx Instructions: pt states doesn't take regularly omeprazole 20 mg capsule,delayed release(DR/EC) 20 mg PO QAM ammonium lactate 12 % cream 1 applic TOPICAL BID PRN (Reason: Other) lisinopril-hydrochlorothiazide 20-12.5 mg tablet 1 tab PO DAILY ergocalciferol (vitamin D2) 1,250 mcg (50,000 unit) capsule 50,000 unit PO WK Rx Instructions: takes on Discharge Orders: Discharge Order (Routine); Ordered 08/30/23 Ordered By: Bong Rodríguez Admission Data Admit Date/Time: 08/26/23 19:05 Attending Provider: Bong Rodríguez Admit Provider: Daniel Byers Primary Care Provider: Suzanne Alex Other Providers: Daniel Byers; Yesenia Glasgow; Marquise Edge Jr Other Interventions: Discharge Summary Assessment (RN) Last Done: 08/30/23 11:40
== END 2023-08-30 16:39 | disposition home or self-care (01) | DRG 433 ==
LOC: ED 14:56 → SUATTDRO 19:05 → 2W 19:05

== ENCOUNTER 2023-10-24 06:45 | Observation (INO) ==
--- OUTSIDE RECORDS SUMMARY | 2023-10-24 06:50 | External Medical Summary | Summary of Care ---
Author Name Unknown Organization [facility] Address [address] [place] [address] Phone [phone] Care Team Providers Care Mold Design Engineer Name Role Phone Suzanne Alex Primary Care Provi lorenza Reason for Visit * Reason Onset Date Comments Pre-Transplant Evaluation 10/14/2023 Encounter Details Date Type Department Care Team (Late st Contact Info) Description [facility] [address] [place] [address] Maria G Mohamud, RN Pre-Transplant Evaluation Allergies Active Allergy Reactions Criticality Noted Date Comments Amoxicillin Medium 09/13/2012 Rash documented as of this encounter (statuses as of 10/14/2023) Medications Medication Sig Dispensed Refills Start Date End Date Status Multiple Vitamins-Minerals (MULTIVITAL) chewable tablet Take 1 Tablet by mouth in the morning. Active Fluticasone Propionate 50 MCG/ACT Nasal Suspension (Flonase) Administer 2 Sprays into each nostril in the morning. 16 g 1 04/10/2022 Active Additional Information Patient not taking.Reported on 09/19/2023 Nadolol 20 MG Oral Tablet (Corgard) Take 1 Tablet by mouth in the morning. 30 Tablet 3 06/01/2022 Active Doxycycline Hyclate 100 MG Oral Capsule Take 1 Capsule by mouth in the morning and 1 Capsule before bedtime. 09/11/2022 Active Ammonium Lactate 12 % External CreamIndications:D ermatitis Apply to affected area once or twice a day 385 g 3 07/13/2023 Active Omeprazole 20 MG Oral Capsule Delayed Release (PriLOSEC)Indicati ons:Dysphagia, unspecified type Take 1 Capsule by mouth in the morning. 30 Capsule 07/21/2023 Active Triamterene-HCTZ 37.5-25 MG Oral Capsule (Dyazide)Indicatio ns:Dermatitis Take 1 Capsule by mouth in the morning. 30 Capsule 07/21/2023 Active Additional Information Patient not taking.Reported on 09/19/2023 Lisinopril-hydroCH LOROthiazide 20-12.5 MG Oral Tablet daily. 09/12/2023 Active Acetaminophen 500 MG Oral Tablet (Tylenol) 2 Tablets as needed. 09/10/2022 Active Vitamin D (Ergocalciferol) 1.25 MG (50755 UT) Oral Capsule (Drisdol) TAKE ONE CAPSULE BY MOUTH ONCE A WEEK FOR 8 WEEKS. 08/23/2023 Active FeroSul 325 (65 Fe) MG Oral Tablet Take 1 Tablet by mouth in the morning. In the morning.. 08/30/2023 Active Lactulose 20 GM/30ML Oral Solution (Constulose) Take 30 mL by mouth in the morning and 30 mL at noon and 30 mL before bedtime. 240 mL 11 09/19/2023 10/19/2023 Active documented as of this encounter (statuses as of 10/14/2023) Active Problems Problem Noted Date Diagnosed Date [...] as of this encounter (statuses as of 10/14/2023) Resolved Problems Problem Noted Date Diagnosed Date Resolved Date Constipation 05/24/2001 06/27/2008 Overview: ICD-10 update of inactive term CHEST WALL PAIN, LEFT 02/10/20002000 Unspecified viral infection, in conditions classified elsewhere and of unspecified site 02/10/2000 07/12/2000 ACUTE PHARYNGITIS 02/10/2000 07/12/2000 Cough 02/10/2000 07/12/2000 documented as of this encounter (statuses as of 10/14/2023) Immunizations Name Administration Dates Next Due Diptheria/Tetanus [...] Packs/Day Years Used Date Smoking Tobacco: Never Passive Smoke Exposure: Never Smokeless Tobacco: Never Alcohol Use Standard [...] y our heating, water, or electric bill? (Adult - for ages 18 years and over) Not on file 09/19/2023 Is your family able to pay t he heat, water, or electric bill? (Household - for ages 0-17 years) Not on file 09/19/2023 Does your family have access to good internet? (Household - for ages 0-17 years) Not on file 09/19/2023 Employment Status Answer Date Recorded Are you unemployed or without regular income? No 09/15/2022 Does the household have a re lar source of income? (Household - for ages 0-17 years) Not on file 09/15/2022 Social Connections Answer Date Recorded How often do you feel lonely or isolated from those around you? (Adult - for ages 18 years and over) Not on file 09/19/2023 Financial Resource Strain Answer Date R ecorded [...] on file Are you (or your family) angelina eless or worried that you might be [...] encounter Miscellaneous Notes * Telephone Encounter - Aleksandra Angeles OSA - 10/14/2023 9:42 AM EDT LMOM to return call for transplant screening. Contact information given. documented in this encounter Plan of Treatment [...] (2 of 2 - PCV) 04/13/2019 04/12/2018 DTap/Tdap Vaccines (2 - Td or Tdap) 03/23/2021 03/23/2011, 02/08/2004 Depression Screening 11/19/2021 11/19/2020 COVID-19 Vaccine ( season) 2023 Influenza Vaccine (FLU shot) (#1) 2023 11/19/2019, 02/14/2015 Colonoscopy 05/03/2025 05/03/2022, 04/08, 04/19/2018, Additional history exists Colorectal Cancer Screening 05/03/2025 Lipid Panel 05/26/2025 05/26/2020, 10/0 04/2018, 12/29/2016, Additional history exists Diabetes Screening 09/18/2026 09/19/2023, 0 09/10/2022, 10/07/2021, Additional history exists HPV (Gardasil) Vaccine Aged Out No lo nger eligible based on patient's age to complete this topic MENINGOCOCCAL (MENACTRA/MENVEO) Aged Out No longer eligible based on patient's age to complete this topic documented as of this encounter Medical Devices Implanted Type Area Electrical Plumbing Supervisor Device Identifier Shelf Expiration Date Model / Serial / Lot Clip Quick 2.8mm 230cm - [id number] Implanted:Qty: 1 on 05/03/2022 by Abi Gonzalez DO at END[facility] [employer] 09/06/2024 [id number] / [id number] documented as of this encounter Care Teams Mold Design Engineer Relationship Specialty Start Date End Date Suzanne Alex CRNP [address] [facility] [address] [place] [address] PCP - General Nurse Practitioner 09/19/23 documented as of this encounter
--- OUTSIDE RECORDS SUMMARY | 2023-10-24 06:50 | External Medical Summary | Summary of Care ---
Author Name Unknown Organization [facility] Address [address] [place] [address] Phone [phone] Care Team Providers Care Tv Production Assistant Name Role Phone Suzanne Alex Primary Care [facility] Reason for Referral * Precert (Within 10 days (routine)) - Pending Review Specialty Diagnoses / Procedures Referred By Controsa elena t Referred To Contact [facility] Diagnoses Other cirrhosis of liver (HCC) Portal hypertension (HCC) Guzman Samuel MD [address] [place] [address] Referral ID Status Reason Start Date Expiration Date Visits Requested Visits Authorized [id number] Pending Review Specialty Services Required 09/29/[phone] Question Answer Referral Priority Within 10 days (routine) Where should this appointment be scheduled? [facility] Encounter Details Date Type Department Care Team (Late st Contact Info) Description 09/29/2023 [facility] [address], [place] [id number] Maria G Mohamud, RN Other cirrhosis of liver (HCC)*; Portal hypertension (HCC) Allergies Active Allergy Reactions Criticality Noted Date Comments Amoxicillin Medium 09/13/2012 Rash documented as of this encounter (statuses as of 09/29/2023) Medications Medication Sig Dispensed Refills Start Date [...] 09/10/2022 Active Vitamin D (Ergocalciferol) 1.25 MG (96161 UT) Oral Capsule (Drisdol) TAKE ONE CAPSULE [...] as of this encounter (statuses as of 09/29/2023) Active Problems Problem Noted Date Diagnosed Date [...] as of this encounter (statuses as of 09/29/2023) Resolved Problems Problem Noted Date Diagnosed Date Resolved Date Constipation 05/24/2001 06/27/2008 Overview: ICD-10 update of inactive term CHEST WALL PAIN, LEFT 02/10/20002000 Unspecified viral infection, in conditions classified elsewhere and of unspecified site 02/10/2000 07/12/2000 ACUTE PHARYNGITIS 02/10/2000 07/12/2000 Cough 02/10/2000 07/12/2000 documented as of this encounter (statuses as of 09/29/2023) Immunizations Name Administration Dates Next Due Diptheria/Tetanus [...] PROXIMAL DIAGNOSTIC Recall History of colon polyps Scheduled Referrals Name Type Priority Associated Diagnoses Orde r Schedule [facility] REFERRAL OP Referral Within 10 days (routine) Other cirrhosis of liver (HCC) Portal hypertension (HCC) Ordered: 09/29/2023 Health Maintenance Due Date Last Done Comments [...] this encounter Medical Devices Implanted Type Area Appeals Examiner Device Identifier Shelf Expiration Date Model / Serial / Lot Clip Quick 2.8mm 230cm - [id number] Implanted:Qty: 1 on 05/03/2022 by Abi Gonzalez DO at [facility] Colon [employer] 09/06/2024 [id number]-202UR.A / / [id number] documented as of this encounter Visit Diagnoses Diagnosis Other cirrhosis of liver (HCC)- Primary Portal hypertension (HCC) Portal hypertension documented in this encounter Care Teams Tv Production Assistant Relationship Specialty Start Date End Date Suzanne Alex CRNP [address] [facility] [address] [place] [address] PCP - General Nurse Practitioner 09/19/23 documented as of this encounter
--- OUTSIDE RECORDS SUMMARY | 2023-10-24 06:50 | External Medical Summary | Summary of Care ---
Author Name Unknown Organization [facility] Address [address] [place] [address] Phone [phone] Care Team Providers Care Psych Social Worker Name Role Phone Suzanne Alex Primary Care Provi lorenza Reason for Visit * Reason Onset Date Comments Pre-Transplant Evaluation 10/20/2023 Encounter Details Date Type Department Care Team (Late st Contact Info) Description [facility] [address] [place] [address] Maria G Mohamud, RN Pre-Transplant Evaluation Allergies Active Allergy Reactions Criticality Noted Date Comments Amoxicillin Medium 09/13/2012 Rash documented as of this encounter (statuses as of 10/20/2023) Medications Medication Sig Dispensed Refills Start Date [...] Additional Information Patient not taking.Reported on 09/19/2023 Lisinopril-hydroCHL OROthiazide 20-12.5 MG Oral Tablet daily. 09/12/2023 Active Acetaminophen 500 MG Oral Tablet (Tylenol) 2 Tablets as needed. 09/10/2022 Active Vitamin D (Ergocalciferol) 1.25 MG (14687 UT) Oral Capsule (Drisdol) TAKE ONE CAPSULE BY MOUTH ONCE A WEEK FOR 8 WEEKS. 08/23/2023 Active FeroSul 325 (65 Fe) MG Oral Tablet Take 1 Tablet by mouth in the morning. In the morning.. 08/30/2023 Active documented as of this encounter (statuses as of 10/20/2023) Active Problems Problem Noted Date Diagnosed Date [...] as of this encounter (statuses as of 10/20/2023) Resolved Problems Problem Noted Date Diagnosed Date Resolved Date Constipation 05/24/2001 06/27/2008 Overview: ICD-10 update of inactive term CHEST WALL PAIN, LEFT 02/10/20002000 Unspecified viral infection, in conditions classified elsewhere and of unspecified site 02/10/2000 07/12/2000 ACUTE PHARYNGITIS 02/10/2000 07/12/2000 Cough 02/10/2000 07/12/2000 documented as of this encounter (statuses as of 10/20/2023) Immunizations Name Administration Dates Next Due Diptheria/Tetanus [...] Cancer Screening 05/03/2025 Lipid Panel 05/26/2025 05/26/2020, 10/04/2018, 12/29/2016, Additional history exists Diabetes Screening 09/18/2026 09/19/2023, 0 09/10/2022, 10/07/2021, Additional history exists HPV (Gardasil) Vaccine Aged Out No lo nger eligible based on patient's age to complete this topic MENINGOCOCCAL (MENACTRA/MENVEO) Aged Out No longer eligible based on patient's age to complete this topic documented as of this encounter Medical Devices Implanted Type Area Personnel Consultant Device Identifier Shelf Expiration Date Model / Serial / Lot Clip Quick 2.8mm 230cm - [id number] Implanted:Qty: 1 on 05/03/2022 by Abi Gonzalez DO at [facility]COPY [facility] Colon [employer] 09/06/2024 [id number]-202UR.A / / [id number] documented as of this encounter Care Teams Psych Social Worker Relationship Specialty Start Date End Date Suzanne Alex CRNP [address] [facility] [address] [place] [address] PCP - General Nurse Practitioner 09/19/23 documented as of this encounter
--- OUTSIDE RECORDS SUMMARY | 2023-10-24 06:50 | External Medical Summary | Summary of Care ---
Author Name Unknown Organization [facility] Address [address] [place] [address] Phone [phone] Care Team Providers Care Toaster Element Repairer Name Role Phone Suzanne Alex Primary Care Provi lorenza Reason for Visit * Reason Onset Date Comments Pre-Transplant Evaluation 10/20/2023 Encounter Details Date Type Department Care Team (Late st Contact Info) Description [facility] [address] [place] [address] Maria G Mohamud, RN Pre-Transplant [...] 09/10/2022 Active Vitamin D (Ergocalciferol) 1.25 MG (64336 UT) Oral Capsule (Drisdol) TAKE ONE CAPSULE [...] 18 years and over) Not on file 3 Are you (or your family) angelina eless [...] encounter Miscellaneous Notes * Telephone Encounter - Maria G Mohamud RN - 10/20/2023 1:20 PM EDT Left message for Mr. Damon to return my call to finish his transplant screening. documented in this encounter Plan of Treatment [...] 11/19/2021 11/19/2020 COVID-19 Vaccine ( - season) 2023 Influenza Vaccine (FLU shot) (#1) [...] this encounter Medical Devices Implanted Type Area Pocket Maker Device Identifier Shelf Expiration Date Model / Serial / Lot Clip Quick 2.8mm 230cm - [id number] Implanted:Qty: 1 on 05/03/2022 by Abi Gonzalez DO at [facility]OSCOPY [facility] Colon [employer] 09/06/2024 [id number]-202UR.A / / [id number] documented as of this encounter Care Teams Toaster Element Repairer Relationship Specialty Start Date End Date Suzanne Alex CRNP [address] [facility] [address] [place] [address] PCP - General Nurse Practitioner 09/19/23 documented as of this encounter
--- OUTSIDE RECORDS SUMMARY | 2023-10-24 06:50 | External Medical Summary | Summary of Care ---
Author Name Unknown Organization [facility] Address [address] [place] [address] Phone [phone] Care Team Providers Care Header Boss Name Role Phone Suzanne Alex Primary Care Provi lorenza Reason for Visit * Reason Onset Date Comments Pre-Transplant Evaluation 10/20/2023 Encounter Details Date Type Department Care Team (Late st Contact Info) Description [facility] [address] [place] [address] Maria G Mohamud, RN Pre-Transplant Evaluation Allergies Active Allergy Reactions Criticality Noted Date Comments Amoxicillin Medium 09/13/2012 Rash documented as of this encounter (statuses as of 10/21/2023) Medications Medication Sig Dispensed Refills Start Date [...] 09/10/2022 Active Vitamin D (Ergocalciferol) 1.25 MG (98275 UT) Oral Capsule (Drisdol) TAKE ONE CAPSULE BY MOUTH ONCE A WEEK FOR 8 WEEKS. 08/23/2023 Active FeroSul 325 (65 Fe) MG Oral Tablet Take 1 Tablet by mouth in the morning. In the morning.. 08/30/2023 Active documented as of this encounter (statuses as of 10/21/2023) Active Problems Problem Noted Date Diagnosed Date [...] as of this encounter (statuses as of 10/21/2023) Resolved Problems Problem Noted Date Diagnosed Date Resolved Date Constipation 05/24/2001 06/27/2008 Overview: ICD-10 update of inactive term CHEST WALL PAIN, LEFT 02/10/20002000 Unspecified viral infection, in conditions classified elsewhere and of unspecified site 02/10/2000 07/12/2000 ACUTE PHARYNGITIS 02/10/2000 07/12/2000 Cough 02/10/2000 07/12/2000 documented as of this encounter (statuses as of 10/21/2023) Immunizations Name Administration Dates Next Due Diptheria/Tetanus [...] Encounter - Maria G Mohamud RN - 10/21/2023 9:24 AM EDT Transplant Nurse Coordinator Chart Review Nasir Damon is a 53 year old male with 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 Samuel. He shares that he learnedabout his liver disease in 2016 when he was being evaluated for a hernia surgery and his liver numbers were elevated. He was admitted to [facility] in August due to a low White blood Cell count, Decreased platelet count, and a Hemoglobin of 9.7. He was also feeling fatigued and had some brain fogginess. Mr. Damon has not been able to return to work since his admission to [facility] and has been using his short term disability. He is able to care for himself at home and complete household activities. He does not need assistance with walking. He denies any problems with ascites. He does have some swelling to his lower extremities for which he is taking a diuretic. He could not remember the name of the medication during our phone conversation but is willing to bring a list of his current meds to his initial liver transplant evaluation. He has recently noticed some word finding difficulties and some brain fogginess. He was started on Lactulose by Dr. Samuel at his last office visit. A CT scan of the abd/Pelvis was completed on 08/26/23 at [facility] An Ultrasound of his abdomen was completed on 09/14/23 at [facility] A liver biopsy was completed with portal pressure measurements on 06/17/17 A colonoscopy was completed on 05/03/22 An EGD was completed on 01/06/21 I reviewed the allocation of liver transplants based on MELD scores. He is aware that his current MELD score is 18. He is interested in meeting the members of the transplant team and has accepted an appointment for initial evaluation on October 30. He is aware that he will need to bring a supportperson with him to the appointment. documented in this encounter Plan of Treatment Scheduled Orders Name Type Priority Associated Diagnoses Orde r Schedule ETHANOL, MEDICAL Lab Routine Other cirrhosis of liver (HCC) Pre-transplant evaluation for chronic liver disease Expected: 10/31/2023 (Approximate), Expires: 10/08/2024 TOXICOLOGY, URINESCREEN W/ CONFIRMATION Lab Routine Other cirrhosis of liver (HCC) Pre-transplant evaluation for chronic liver disease Expected: 10/31/2023 (Approximate), Expires: 10/08/2024 PHOSPHATIDYLETHANOL, BLOOD Lab Routine Other cirrhosis of liver (HCC) Pre-transplant evaluation for chronic liver disease Expected: 10/31/2023 (Approximate), Expires: 10/08/2024 COMPREHENSIVE METABOLIC PANEL Lab Routine Other cirrhosis of liver (HCC) Pre-transplant evaluation for chronic liver disease Expected: 10/31/2023 (Approximate), Expires: 10/08/2024 T4, FREE Lab Routine Other cirrhosis of liver (HCC) Pre-transplant evaluation for chronic liver disease Expected: 10/31/2023 (Approximate), Expires: 10/08/2024 TSH Lab Routine Other cirrhosis of liver (HCC) Pre-transplant evaluation for chronic liver disease Expected: 10/31/2023 (Approximate), Expires: 10/08/2024 ALPHA-FETOPROTEIN TUMOR MARKER Lab Routine Other cirrhosis of liver (HCC) Pre-transplant evaluation for chronic liver disease Expected: 10/31/2023 (Approximate), Expires: 10/08/2024 PSA Lab Routine Other cirrhosis of liver (HCC) Pre-transplant evaluation for chronic liver disease Expected: 10/31/2023 (Approximate), Expires: 10/08/2024 HEPATITIS A ANTIBODIES IGG AND IGM Lab Routine Other cirrhosis of liver (HCC) Pre-transplant evaluation for chronic liver disease Expected: 10/31/2023 (Approximate), Expires: 10/08/2024 HEPATITIS B SURFACE ANTIBODY Lab Routine Other cirrhosis of liver (HCC) Pre-transplant evaluation for chronic liver disease Expected: 10/31/2023 (Approximate), Expires: 10/08/2024 HEPATITIS B SURFACE ANTIGEN Lab Routine Other cirrhosis of liver (HCC) Pre-transplant evaluation for chronic liver disease Expected: 10/31/2023 (Approximate), Expires: 10/08/2024 HEPATITIS B CORE ANTIBODIES IGG AND IGM Lab Routine Other cirrhosis of liver (HCC) Pre-transplant evaluation for chronic liver disease Expected: 10/31/2023 (Approximate), Expires: 10/08/2024 HEPATITIS C ANTIBODY SCREEN WITH PROGRESSION TO HEPATITIS C RNA QUANTITATIVE Lab Routine Other cirrhosis of liver (HCC) Pre-transplant evaluation for chronic liver disease Expected: 10/31/2023 (Approximate), Expires: 10/08/2024 CMV IGG ANTIBODY Lab Routine Other cirrhosis of liver (HCC) Pre-transplant evaluation for chronic liver disease Expected: 10/31/2023 (Approximate), Expires: 10/08/2024 RPR Lab Routine Other cirrhosis of liver (HCC) Pre-transplant evaluation for chronic liver disease Expected: 10/31/2023 (Approximate), Expires: 10/08/2024 QUANTIFERON TB GOLD PLUS Lab Routine Other cirrhosis of liver (HCC) Pre-transplant evaluation for chronic liver disease Expected: 10/31/2023 (Approximate), Expires: 10/08/2024 CBC WITH WBC DIFFERENTIAL Lab Routine Other cirrhosis of liver (HCC) Pre-transplant evaluation for chronic liver disease Expected: 10/31/2023 (Approximate), Expires: 10/08/2024 PT INR Lab Routine Other cirrhosis of liver (HCC) Pre-transplant evaluation for chronic liver disease Expected: 10/31/2023 (Approximate), Expires: 10/08/2024 APTT Lab Routine Other cirrhosis of liver (HCC) Pre-transplant evaluation for chronic liver disease Expected: 10/31/2023 (Approximate), Expires: 10/08/2024 URINALYSIS, REFLEX TO MICROSCOPIC Lab Routine Other cirrhosis of liver (HCC) Pre-transplant evaluation for chronic liver disease Expected: 10/31/2023 (Approximate), Expires: 10/08/2024 HIV ANTIGEN & ANTIBODY SCREEN W/ CONFIRMATION Lab Routine Other cirrhosis of liver (HCC) Pre-transplant evaluation for chronic liver disease Expected: 10/31/2023 (Approximate), Expires: 10/08/2024 PHOSPHORUS Lab Routine Other cirrhosis of liver (HCC) Pre-transplant evaluation for chronic liver disease Expected: 10/31/2023 (Approximate), Expires: 10/08/2024 MAGNESIUM Lab Routine Other cirrhosis of liver (HCC) Pre-transplant evaluation for chronic liver disease Expected: 10/31/2023 (Approximate), Expires: 10/08/2024 LIPID PANEL WITHOUT DIRECT LDL Lab Routine Other cirrhosis of liver (HCC) Pre-transplant evaluation for chronic liver disease Expected: 10/31/2023 (Approximate), Expires: 10/08/2024 HEMOGLOBIN A1C Lab Routine Other cirrhosis of liver (HCC) Pre-transplant evaluation for chronic liver disease Expected: 10/31/2023 (Approximate), Expires: 10/08/2024 XR CHEST 2 VIEWS Medical Imaging Routine Other cirrhosis of liver (HCC) Pre-transplant evaluation for chronic liver disease Ordered: 10/21/2023 Scheduled Procedures Name Priority Associated Diagnoses Date/Ti [...] 02/08/2004 Depression Screening 11/19/2021 11/19/2020 COVID-19 Vaccine (1 - season) 2023 Influenza Vaccine (FLU shot) [...] this encounter Medical Devices Implanted Type Area Commercial Construction Estimator Device Identifier Shelf Expiration Date Model / Serial / Lot Clip Quick 2.8mm 230cm - [id number] Implanted:Qty: 1 on 05/03/2022 by Abi Gonzalez DO at ENDOSCOPY [facility] Colon [employer] [facility] 09/06/2024 HX-202UR.A / / [id number] documented as of this encounter Visit Diagnoses Diagnosis Pre-transplant evaluation for chronic liver disease- Primary Other specified pre-operative examination Other cirrhosis of liver (HCC) documented in this encounter Care Teams Header Boss Relationship Specialty Start Date End Date Suzanne Alex CRNP [address] [address] PCP - General Nurse Practitioner 09/19/23 documented as of this encounter"
--- OUTSIDE RECORDS SUMMARY | 2023-10-24 06:50 | External Medical Summary | Summary of Care ---
Author Name Unknown Organization [facility] Address [address] [place] [address] Phone [phone] Care Team Providers Care Hardness Tester Name Role Phone Suzanne Alex Primary Care Provi lorenza Reason for Visit * Reason Onset Date Comments Pre-Transplant Evaluation 10/06/2023 Encounter Details Date Type Department Care Team (Late st Contact Info) Description [facility] [address] [place] [address] Maria G Mohamud, RN Pre-Transplant Evaluation Allergies Active Allergy Reactions Criticality Noted Date Comments Amoxicillin Medium 09/13/2012 Rash documented as of this encounter (statuses as of 10/06/2023) Medications Medication Sig Dispensed Refills Start Date [...] 09/10/2022 Active Vitamin D (Ergocalciferol) 1.25 MG (91490 UT) Oral Capsule (Drisdol) TAKE ONE CAPSULE [...] as of this encounter (statuses as of 10/06/2023) Active Problems Problem Noted Date Diagnosed Date [...] as of this encounter (statuses as of 10/06/2023) Resolved Problems Problem Noted Date Diagnosed Date Resolved Date Constipation 05/24/2001 06/27/2008 Overview: ICD-10 update of inactive term CHEST WALL PAIN, LEFT 02/10/20002000 Unspecified viral infection, in conditions classified elsewhere and of unspecified site 02/10/2000 07/12/2000 ACUTE PHARYNGITIS 02/10/2000 07/12/2000 Cough 02/10/2000 07/12/2000 documented as of this encounter (statuses as of 10/06/2023) Immunizations Name Administration Dates Next Due Diptheria/Tetanus [...] Telephone Encounter - Aleksandra Angeles OSA - 10/06/2023 2:58 PM EDT LMOM for return call regarding transplant screening. Contact information provided. documented in this encounter Plan of Treatment [...] Screening 11/19/2021 11/19/2020 COVID-19 Vaccine ( season) 2022 Influenza Vaccine (FLU shot) (#1) [...] this encounter Medical Devices Implanted Type Area Loom Fixer Helper Device Identifier Shelf Expiration Date Model / Serial / Lot Clip Quick 2.8mm 230cm - [id number] Implanted:Qty: 1 on 05/03/2022 by Abi Gonzalez DO at ENDOSCOPY [facility] Colon [employer] 09/06/2024 HX-202UR.A / / [id number] documented as of this encounter Care Teams Hardness Tester Relationship Specialty Start Date End Date Suzanne Alex CRNP [address] [facility] [address] [place] [address] PCP - General Nurse Practitioner 09/19/23 documented as of this encounter
--- OUTSIDE RECORDS SUMMARY | 2023-10-24 06:51 | External Medical Summary | Summary of Care ---
Author Name Unknown Organization [facility] Address [address] [place] [address] Phone [phone] Care Team Providers Care Warehouse Packer Name Role Phone Suzanne Alex Primary Care Pro[facility] lorenza Reason for Visit * Reason Comments Follow Up Encounter Details Date Type Department Care Team (Late st Contact Info) Description 09/19/2023 11:20 AM EDT Office Visit [facility] [place] [address] [place] [address] Guzman Samuel MD [address] [place] [address] Other cirrhosis of liver (HCC)* Allergies Active Allergy Reactions Criticality Noted Date Comments Amoxicillin Medium 09/13/2012 Rash documented as of this encounter (statuses as of 09/28/2023) Medications Medication Sig Dispensed Refills Start Date [...] 09/10/2022 Active Vitamin D (Ergocalciferol) 1.25 MG (68768 UT) Oral Capsule (Drisdol) TAKE ONE CAPSULE [...] as of this encounter (statuses as of 09/28/2023) Active Problems Problem Noted Date Diagnosed Date [...] as of this encounter (statuses as of 09/28/2023) Resolved Problems Problem Noted Date Diagnosed Date Resolved Date Constipation 05/24/2001 06/27/2008 Overview: ICD-10 update of inactive term CHEST WALL PAIN, LEFT 02/10/20002000 Unspecified viral infection, in conditions classified elsewhere and of unspecified site 02/10/2000 07/12/2000 ACUTE PHARYNGITIS 02/10/2000 07/12/2000 Cough 02/10/2000 07/12/2000 documented as of this encounter (statuses as of 09/28/2023) Immunizations Name Administration Dates Next Due Diptheria/Tetanus [...] Passive Smoke Exposure: Never Smokeless Tobacco: Never Tobacco Cessation:Counseling Given: Not Answered Alcohol Use Standard Drinks/Week Comments Not Currently [...] on file documented as of this encounter Last Filed Vital Signs Vital Sign Reading Time Taken Comments Blood Pressure 100/58 09/19/2023 11:13 AM EDT Pulse 63 09/19/2023 11:13 AM EDT Temperature - - Respiratory Rate - - Oxygen Saturation 98% 09/19/2023 11:13 AM EDT Inhaled Oxygen Concentration - - Weight 126.6 kg (279 lb) 09/19/2023 11:13 AM EDT Height - - Body Mass Index 34.87 10/14/2022 9:35 AM EDT documented in this encounter Patient Instructions * Patient Instructions* Guzman Samuel MD - 09/19/2023 11:35 AM EDT A) 2 gram sodium diet, weigh at least 3 times per week early in the morning, report weight gain of 2 lb or more and the importance of consuming 25-40 Kcal/Kg per day. B) Take 1-1.5 gram per kg body weight of lean white protein daily including chicken, fish, egg whites, low-fat Chinese yogurt.Avoid red meats, mainly, beef, pork, castillo, venison and livers (in any form). Take zinc supplement (zinc sulphate 220 mg once a day) and VSL#3 probiotics. Supplement protein with BCAA (branched-chain amino acids) for muscle gain and hepatic encephalopathy. C) Take a bed-time snack with 20-40 gram protein and 50 gram complex carbohydrates D) Continue exercising which should include should include 3 days of aerobic activity and 2 days ofresistance training. Use the website link for guidance from [employer]: htt ps://www.exerciseismedicine.org/wp-content/uploads//VRJ_Fk-eio-Wxqmrd_Nyn lihl-Lwxmo-Vqfoayc.pdf E) Avoid constipation and use lactulose with a goal of 3 bowel movements everyday. documented in this encounter Progress Notes * Guzman Samuel MD - 09/19/2023 11:03 AM EDT Hepatology Cirrhosis Note Hepatology, [place] [address] Date of appointment: 09/19/2023 Chief Complaint: Cirrhosis History of Current Illness: Nasir Damon is a 53 year old male with history of cirrhosis due toalpha-1 antitrypsin deficiency and fatty liver disease. Patient was last seen in 2021. He was recently admitted with very low white count. He was een by a rib stiffener and heel dipper but we don't have the results of all the work up done. His significant other also indicated that he been more forgetful and tired. Here for further evaluation and management. Review of systems: A 14-point ROS was negative except as mentioned above in HPI. Past Medical History Past Medical History: Diagnosis Date Hepatosplenomegaly 05/26/2017 Hypertension Mild, recently placed on medication Other atopic dermatitis and related conditions Portal hypertension (HCC) 07/14/2017 STASIS DERMATITIS 06/27/2008 Past Surgical History Past Surgical History: Procedure Laterality Date COLONOSCOPY, DIAGNOSTIC (RECTUM) 04/19/2018 adenomatous polyps, repeat 3 yrs/COLONOSCOPY FLEXIBLE PROXIMAL DIAGNOSTIC performed by Melecio Moses MD at ENDOSCOPY [facility] COLONOSCOPY, DIAGNOSTIC (RECTUM) 05/03/2022 1-4mm in ascending /biopsies benign adenomatous polyp / 5 year recall / COLONOSCOPY FLEXIBLE PROXIMAL DIAGNOSTIC performed by Abi Gonzalez DO at ENDOSCOPY [facility] EGD, FLEXIBLE, DIAGNOSTIC 03/04/2014 Ruma coreas, HH/ESOPHAGOGASTRODUODENOSCOPY (EGD), FLEXIBLE, TRANSORAL, DIAGNOSTIC performed by Gregory Agustin MD at ENDOSCOPY [facility] EGD, FLEXIBLE, DIAGNOSTIC 06/07/2017 Erosive gastropathy, esophageal varices, repeat 1 yr/ESOPHAGOGASTRODUODENOSCOPY (EGD), FLEXIBLE, TRANSORAL, DIAGNOSTIC performed by Melecio Moses MD at ENDOSCOPY [facility] EGD, FLEXIBLE, DIAGNOSTIC 04/19/2018 esophageal varices, repeat 1 yr/ESOPHAGOGASTRODUODENOSCOPY (EGD), FLEXIBLE, TRANSORAL, DIAGNOSTIC performed by Melecio Moses MD at [facility]OSCOPY [facility] EGD, FLEXIBLE, DIAGNOSTIC 04/09/2019 esophageal varices, repeat 1 yr / ESOPHAGOGASTRODUODENOSCOPY (EGD), FLEXIBLE, TRANSORAL, DIAGNOSTICperformed by Melecio Moses MD at ENDOSCOPY [facility] EGD, FLEXIBLE, DIAGNOSTIC 01/06/2021 esophageal & gastric varices, portal hypertensive gastropathy / ESOPHAGOGASTRODUODENOSCOPY (EGD), FLEXIBLE, TRANSORAL, DIAGNOSTIC performed by Melecio Moses MD at ENDOSCOPY [facility] Social History @[email or web address]@ Family history Family History Problem Relation Name Age of Onset Lung Disorder Father Gastro-intestinal disorder Grandmother (Paternal) liver dis Cancer Grandfather (Paternal) lung Family history of liver disease/cancer: no. Medications Current Outpatient Medications Medication Sig Dispense Refill Multiple Vitamins-Minerals (MULTIVITAL) chewable tablet Take 1 Tablet by mouth in the morning. Nadolol 20 MG Oral Tablet (Corgard) Take 1 Tablet by mouth in the morning. 30 Tablet 3 Ammonium Lactate 12 % External Cream Apply to affected area once or twice a day 385 g 3 Omeprazole 20 MG Oral Capsule Delayed Release (PriLOSEC) Take 1 Capsule by mouth in the morning. 30Capsule 0 Lisinopril-hydroCHLOROthiazide 20-12.5 MG Oral Tablet daily. Acetaminophen 500 MG Oral Tablet (Tylenol) 2 Tablets as needed. Vitamin D (Ergocalciferol) 1.25 MG (24427 UT) Oral Capsule (Drisdol) TAKE ONE CAPSULE BY MOUTH ONCEA WEEK FOR 8 WEEKS. FeroSul 325 (65 Fe) MG Oral Tablet Take 1 Tablet by mouth in the morning. In the morning.. Fluticasone Propionate 50 MCG/ACT Nasal Suspension (Flonase) Administer 2 Sprays into each nostril in the morning. (Patient not taking: Reported on 09/19/2023) 16 g 1 Doxycycline Hyclate 100 MG Oral Capsule Take 1 Capsule by mouth in the morning and 1 Capsule beforebedtime. (Patient not taking: Reported on 10/14/2022) Triamterene-HCTZ 37.5-25 MG Oral Capsule (Dyazide) Take 1 Capsule by mouth in the morning. (Patientnot taking: Reported on 09/19/2023) 30 Capsule 0 No current facility-administered medications for this visit. No herbal supplements Review of patient's allergies indicates: Allergen Reactions Amoxicillin Rash Physical Exam: Vitals: BP 100/58 | Pulse 63 | Wt 126.6 kg (279 lb) | SpO2 98% | BMI 34.87 kg/m | BSA 2.59 m Wt Readings from Last 10 Encounters: 09/19/23 126.6 kg (279 lb) 10/14/22 132.7 kg (292 lb 9.6 oz) 09/15/22 132.3 kg (291 lb 9.6 oz) 05/03/22 131.5 kg (290 lb) 10/07/21 134.7 kg (297 lb) 01/06/21 130.2 kg (287 lb) 11/25/20 130.2 kg (287 lb) 11/19/20 131 kg (288 lb 12.8 oz) 08/06/20 127.5 kg (281 lb) 05/26/20 126.6 kg (279 lb) General: alert, awake, oriented, healthy appearing, and in no acute distress Head: normocephalic and no masses, lesions, tenderness, or abnormalities Eye Exam: conjunctivae and sclerae are clear and non-icteric, pupils are equally round and reactiveto light, and extra-ocular movements intact Ears: External ears normal HENT: nares are patent , without discharge, oropharynx is clear, without erythema or exudates, and buccal mucosa is moist Neck: supple Abdomen: soft, obese Extremities: +edema, joints not swollen, and no warmth Skin: no spider angioma, no rashes, and no cyanosis or clubbing Neuro Exam: awake, alert, and oriented X 3 and gait normal Labs: Reviewed as below: Latest Reference Range & Units 09/10/22 00:00 POTASSIUM-OUTSIDE LAB 3.5 - 5.1 MMOL/L 3.5 (E) CREATININE-OUTSIDE LAB 0.6 - 1.4 MG/DL 1.03 (E) EGFR-OUTSIDE LAB 82.0 (E) GLUCOSE-OUTSIDE LAB 70 - 99 MG/DL 139 ! (E) TSH - OUTSIDE LAB 0.300 - 4.500 UIU/ML 0.779 (E) HGB 14.0 - 18.0 G/DL 12.1 ! (E) !: Data is abnormal (E): External lab result Imaging Studies: Reviewed as below: None Assessment and Plan: 53 year old male with decompensated Cirrhosis. Last colonoscopy was in April 26, 2022 when a small polyp was removed from ascending colon. Computed MELD 3.0 unavailable. One or more values for this score either were not found within the given timeframe or did not fit some other criterion. Ascites and / or peripheral edema: will continue the current doses of diuretics. His [facility] Variceal screening: Last EGD was in 2020 which had shown esophageal as well as gastric varices. He is on nadolol. Hepatic Encephalopathy: Take lactulose once a day only as he get 2-3bms/DAY. A) 2 gram sodium diet, weigh at least 3 times per week early in the morning, report weight gain of 2 lb or more and the importance of consuming 25-40 Kcal/Kg per day. B) Take 1-1.5 gram per kg body weight of lean white protein daily including chicken, fish, egg whites, low-fat Chinese yogurt.Avoid red meats, mainly, beef, pork, castillo, venison and livers (in any form). Take zinc supplement (zinc sulphate 220 mg once a day) and VSL#3 probiotics. Supplement protein with BCAA (branched-chain amino acids) for muscle gain and hepatic encephalopathy. C) Take a bed-time snack with 20-40 gram protein and 50 gram complex carbohydrates D) Continue exercising which should include should include 3 days of aerobic activity and 2 days ofresistance training. Use the website link for guidance from [employer]: htt ps://www.exerciseismedicine.org/wp-content/uploads//BRJ_Sy-rvx-Fdngpo_Lww jrtu-Anndj-Pfofvoi.pdf E) Avoid constipation and use lactulose with a goal of 3 bowel movements everyday. Hepatocelluar carcinoma screening: The patient should have image studies for hepatocellular carcinoma screening every six months. The three modalities, including ultrasound, CT scan, and MRI can be alternated. Patient has an ultrasound order placed. He has an appointment on October 03. Plan CBC Comprehensive Metabolic Panel PT INR Alpha-Fetoprotein Tumor Marker Lactulose 20 GM/30ML Oral Solution (Constulose) Patient is willing for above life-style modification changes and should follow- up with us in liver clinic in 3 months with repeat labs. He should continue to follow-up with PCP. The above plan of care was discussed with the patient, for which understanding was demonstrated. Thank you referring your patient for the consultation and allowing me to participate in the care ofthis patient. Please do not hesitate and feel free to contact me if you have any questions. Guzman Samuel MD Hepatology, [place] [address] documented in this encounter Plan of Treatment [...] this encounter Medical Devices Implanted Type Area Civil Draftsman Device Identifier Shelf Expiration Date Model / Serial / Lot Clip Quick 2.8mm 230cm - [id number] Implanted:Qty: 1 on 05/03/2022 by Abi Gonzalez DO at ENDOSCOPY [facility] Colon babbel [facility] 09/06/2024 [id number] / / [id number] documented as of this encounter Results * (ABNORMAL) CBC (09/19/2023 12:30 PM EDT) WBC 3.02(L) 4.00 - 10.80 K/uL 09/19/2023 1:32 PM EDT [facility] RBC 4.26 4.50 - 5.25 M/uL 09/19/2023 1:32 PM EDT [facility] HGB 13.1(L) 14.0 - 16.8 g/dL 09/19/2023 1:32 PM EDT [facility] HCT 40.0 40.0 - 48.4 % 09/19/2023 1:32 PM EDT [facility] MCV 93.9 82.0 - 99.5 fL 09/19/2023 1:32 PM EDT [facility] MCH 30.8 27.0 - 34.0 pg 09/19/2023 1:32 PM EDT [facility] MCHC 32.8 32.0 - 36.0 g/dL 09/19/2023 1:32 PM EDT [facility] RDW 20.5 11.5 - 15.5 % 09/19/2023 1:32 PM EDT [facility] PLT 33(L) 140 - 400 K/uL 09/19/2023 1:32 PM EDT [facility] MPV 12.1 6.6 - 11.1 fL 09/19/2023 1:32 PM EDT [facility] nRBCs 0 <=0 /100 WBCs 09/19/2023 1:32 PM EDT [facility] Blood Venous blood specimen / Unknown Venipuncture / Unknown 09/19/2023 12:30 PM EDT 09/19/2023 12:56 PM EDT Guzman Samuel MD LAB BLOOD ORDERABLES Performing Organization Address City/State/[facility] Co de Phone Number [facility] [address] [place] [address] documented in this encounter Visit Diagnoses Diagnosis Other cirrhosis of liver (HCC)- Primary documented in this encounter Care Teams Warehouse Packer Relationship Specialty Start Date End Date Suzanne Alex CRNP [address] [address] PCP - General Nurse Practitioner 09/19/23 documented as of this encounter"
--- OUTSIDE RECORDS SUMMARY | 2023-10-24 06:51 | External Medical Summary | Summary of Care ---
Author Name Unknown Organization [facility] Address [address] [place] [address] Phone [phone] Care Team Providers Care Materials And Corrosion Engineer Name Role Phone Suzanne Alex Primary Care [facility] Reason for Referral * Evaluate & Treat - Unlimited Visits (Within 10 days (routine)) - Authorized Specialty Diagnoses / Procedures Referred By Maylin grigsby Referred To Contact [facility] / Transplant Surgery Diagnoses Other cirrhosis of liver (HCC) Guzman Samuel MD [address] [place] [address] Referral ID Status Reason Start Date Expiration Date Visits Requested Visits Authorized [id number] Authorized Specialty Services Required 09/28/2023 999 999 Question Answer Referral Priority Within 10 days (routine) Where should this appointment be scheduled? [facility] What is the patient being referred for? Solid Organ Transplant Evaluation Comments MELD 3.0: 18 at 09/19/2023 12:30 PM MELD-Na: 18 at 09/19/2023 12:30 PM Calculated from: Serum Creatinine: 1.2 mg/dL at 09/19/2023 12:30 PM Serum Sodium: 139 mmol/L (Using max of 137 mmol/L) at 09/19/2023 12:30 PM Total Bilirubin: 2.9 mg/dL at 09/19/2023 12:30 PM Serum Albumin: 3.5 g/dL at 09/19/2023 12:30 PM INR(ratio): 1.7 at 09/19/2023 12:30 PM Age at listing (hypothetical): 53 years Sex: Male at 09/19/2023 12:30 PM Encounter Details Date Type Department Care Team (Late st Contact Info) Description 09/28/2023 Telephone Hepatology, [place] [address] [place] [address] Guzman Samuel MD [address] [place] [address] Allergies Active Allergy Reactions Criticality Noted Date [...] 09/10/2022 Active Vitamin D (Ergocalciferol) 1.25 MG (24902 UT) Oral Capsule (Drisdol) TAKE ONE CAPSULE [...] encounter Miscellaneous Notes * Telephone Encounter - Guzman Samuel MD - 09/28/2023 9:34 AM EDT MELD 3.0: 18 at 09/19/2023 12:30 PM MELD-Na: 18 at 09/19/2023 12:30 PM Calculated from: Serum Creatinine: 1.2 mg/dL at 09/19/2023 12:30 PM Serum Sodium: 139 mmol/L (Using max of 137 mmol/L) at 09/19/2023 12:30 PM Total Bilirubin: 2.9 mg/dL at 09/19/2023 12:30 PM Serum Albumin: 3.5 g/dL at 09/19/2023 12:30 PM INR(ratio): 1.7 at 09/19/2023 12:30 PM Age at listing (hypothetical): 53 years Sex: Male at 09/19/2023 12:30 PM Plan [facility] OP [[id number]] documented in this encounter Plan of Treatment Scheduled Procedures Name Priority Associated Diagnoses Date/Ti me COLONOSCOPY FLEXIBLE PROXIMAL DIAGNOSTIC Recall History of colon polyps Scheduled Referrals Name Type Priority Associated Diagnoses Orde r Schedule [facility] RE[facility] OP Referral Within 10 days (routine) Other cirrhosis of liver (HCC) Ordered: 09/28/2023 Health Maintenance Due Date Last Done Comments Cologuard 2013 Fecal Occult Blood Test 2013 Sigmoidoscopy 2013 Zoster Vaccines (1 of 2) 2018 Pneumococcal Vaccine: Pediatrics (0 to 5 Years) and At-Risk Patients (6 to 64 Years) (2 of 2 - PCV) 04/13/2019 04/12/2018 DTaP,Tdap,and Td Vaccines (2 - Td or Tdap) 03/23/2021 03/23/2011, 02/08/2004 Depression Screening 11/19/2021 11/19/2020 COVID-19 Vaccine (1 - season) 2022 Influenza Vaccine (FLU shot) [...] this encounter Medical Devices Implanted Type Area Garbage Pick Up Man Device Identifier Shelf Expiration Date Model / Serial / Lot Clip Quick 2.8mm 230cm - [id number] Implanted:Qty: 1 on 05/03/2022 by Abi Gonzalez DO at [facility]COPY [facility] Colon [employer] 09/06/2024 [id number] / / [id number] documented as of this encounter Visit Diagnoses Diagnosis Other cirrhosis of liver (HCC)- Primary documented in this encounter Care Teams Materials And Corrosion Engineer Relationship Specialty Start Date End Date Suzanne Alex CRNP [address] [facility] [address] [place] [address] PCP - General Nurse Practitioner 09/19/23 documented as of this encounter
--- NOTE | 2023-10-24 07:11 | Emergency Department Note ---
History of Present Illness General Chief complaint: Pain (Generalized) Stated complaint: HERNIA-PAIN Time Seen by Provider: 10/24/23 06:57 History of Present Illness Maximum Pain Intensity: 8 This is a 53-year-old male with history of thrombocytopenia, liver disease, among others that presents to the emergency department via private vehicle with complaints of "abdominal pain". Patient has a history umbilical hernia which is generally self reducible. However, presents today noting worsening pain at the umbilicus. He feels fatigued. Pain is sharp in nature. He notes as of yesterday morning he cannot reduce the hernia. He has been trying to reduce it since yesterday morning. Last bowel movement was yesterday which is unusual for him, noting that he generally moves his bowels several times per day. Patient does also note vomiting. Patient also notes he cannot urinate. No fever. No chest pain or shortness of breath. Home Medications Medication Instructions Recorded Confirmed Type acetaminophen 500 mg tablet 1,000 mg PO Q6H PRN Pain 09/10/22 10/24/23 History (Tylenol Extra Strength) ammonium lactate 12 % topical cream 1 applic topical BID PRN Other 09/10/22 10/24/23 History nadolol 20 mg tablet 20 mg PO DAILY 09/10/22 10/24/23 History omeprazole 20 mg capsule,delayed 20 mg PO QAM 09/10/22 10/24/23 History release lisinopril 20 1 tab PO DAILY 08/26/23 10/24/23 History mg-hydrochlorothiazide 12.5 mg tablet ferrous sulfate 325 mg (65 mg 325 mg PO QAM #30 tabs 08/30/23 10/24/23 Rx iron) tablet,delayed release Vitamin D3 1 cap PO DAILY 10/24/23 10/24/23 History copper 8 mg PO DAILY 10/24/23 10/24/23 History lactulose 10 gram/15 mL oral 30 ml PO TID PRN Other 10/24/23 10/24/23 History solution multivitamin 1 tab PO DAILY 10/24/23 10/24/23 History Allergies Allergy/AdvReac Type Severity Reaction Status Date / Time amoxicillin Allergy Intermediate RASH Verified 09/22/23 14:27 adhesive tape Allergy Unknown "may have Unverified 10/24/23 09:10 allergy to tape; had hives" Past Med/Surg History Problem List (Updated 10/25/23 @ 06:09 by Lucian Gifford PA-C) Umbilical hernia with obstruction (Acute) Encounter for pre-operative examination Edema Splenomegaly Esophageal varices Portal hypertension Cirrhosis Neutropenia (Acute) Umbilical hernia Thrombocytopenia (Acute) HTN (hypertension) Medical History Mild tricuspid regurgitation Mild mitral regurgitation Pancytopenia Ventral hernia Surgical History History of colonoscopy History of esophagogastroduodenoscopy (EGD) Family History Grandfather (Paternal) Cancer Social History Smoking Status: Never smoker Hx Alcohol Use: No Hx Substance Use: No Preferred Language: Maori Communication Ability: Effective Gas Operations Analyst Required: No Beliefs That Will Affect Care: None Current Living Situation: Spouse and Family Current Living Situation Comment: patient lives with girlfriend Feels Safe at Home: Yes Safety Concerns: Feels Safe At This Time Assistive Devices: None Review of Systems A total of 10 systems reviewed and were otherwise negative Physical Exam Vital Signs Vital Signs - 24 hr 10/24/23 06:50 10/24/23 06:50 10/24/23 07:35 Temperature 36.9 C 36.9 C Temperature Source Temporal Artery Scan Temporal Artery Scan Pulse Rate 66 Pulse Rate [Apical] 68 Pulse Rhythm Regular Pulse Rhythm [Apical] Regular Pulse Strength Normal Pulse Strength [Apical] Normal Respiratory Rate 18 18 Respiratory Effort / Characteristics Non-Labored Spontaneous Non-Labored Spontaneous Respiratory Depth Normal Normal Respiratory Pattern Regular Regular Blood Pressure 124/68 Blood Pressure [Right Arm] 124/68 Blood Pressure Mean 86 Blood Pressure Mean [Right Arm] 86 Blood Pressure Position Sitting Blood Pressure Position [Right Arm] Sitting Pulse Oximetry 99 99 99 Oxygen Delivery Method Room Air Room Air Room Air Sepsis Recent Fever Within 48 Hours No Sepsis New/Unexplained Change in Mental Status N/A Sepsis Action Taken by Nursing No Action Required 10/24/23 07:45 10/24/23 08:12 10/24/23 09:17 Temperature 36.7 C Temperature Source Oral Pulse Rate 70 71 Pulse Rate [Apical] 76 Pulse Rhythm Pulse Rhythm [Apical] Pulse Strength Pulse Strength [Apical] Respiratory Rate 22 20 Respiratory Effort / Characteristics Non-Labored Respiratory Depth Normal Respiratory Pattern Blood Pressure 125/66 Blood Pressure [Right Arm] 128/74 Blood Pressure Mean 85 Blood Pressure Mean [Right Arm] 92 Blood Pressure Position Lying Blood Pressure Position [Right Arm] Pulse Oximetry 96 97 Oxygen Delivery Method Room Air Sepsis Recent Fever Within 48 Hours Sepsis New/Unexplained Change in Mental Status Sepsis Action Taken by Nursing 10/24/23 09:35 10/24/23 09:42 10/24/23 09:50 Temperature 36.5 C 36.7 C Temperature Source Oral Oral Pulse Rate 73 73 Pulse Rate [Apical] 76 Pulse Rhythm Pulse Rhythm [Apical] Pulse Strength Pulse Strength [Apical] Respiratory Rate 18 18 18 Respiratory Effort / Characteristics Non-Labored Respiratory Depth Normal Respiratory Pattern Blood Pressure 112/69 117/69 Blood Pressure [Right Arm] 112/69 Blood Pressure Mean 83 85 Blood Pressure Mean [Right Arm] 83 Blood Pressure Position Lying Lying Blood Pressure Position [Right Arm] Lying Pulse Oximetry 98 99 98 Oxygen Delivery Method Room Air Sepsis Recent Fever Within 48 Hours Sepsis New/Unexplained Change in Mental Status Sepsis Action Taken by Nursing 10/24/23 10:20 10/24/23 11:00 Temperature 36.8 C Temperature Source Oral Pulse Rate 77 Pulse Rate [Apical] 81 Pulse Rhythm Pulse Rhythm [Apical] Pulse Strength Pulse Strength [Apical] Respiratory Rate 18 22 Respiratory Effort / Characteristics Non-Labored Respiratory Depth Normal Respiratory Pattern Blood Pressure 119/67 Blood Pressure [Right Arm] 113/67 Blood Pressure Mean 84 Blood Pressure Mean [Right Arm] 82 Blood Pressure Position Lying Blood Pressure Position [Right Arm] Pulse Oximetry 97 98 Oxygen Delivery Method Room Air Sepsis Recent Fever Within 48 Hours Sepsis New/Unexplained Change in Mental Status Sepsis Action Taken by Nursing VITAL SIGNS - Vital signs and nursing notes were reviewed. Stable and afebrile. GENERAL - 53-year-old male appearing his stated age who is in no acute distress. Communicates well with provider and answers questions appropriately. SKIN - Without rashes. HEAD - NC/AT. EYES - Sclera icteric. LUNGS - Chest wall symmetric without accessory muscle use, intercostals retractions, or central cyanosis. Normal vesicular breath sounds CTA B/L. No wheezes, rales, or rhonchi appreciated. CARDIAC - RRR with S1/S2. No murmur, rubs, or gallops appreciated. ABDOMEN - Lower abd TTP with palpable non reducible hernia periumbilical. No guarding. No rigidity. EXTREMITIES - No clubbing or peripheral cyanosis. +5/5 strength noted in UE/LE bilaterally. NEUROLOGIC - Cranial nerves II through XII grossly intact. PSYCH -alert and oriented. pt is very pleasant and interacts well with examiner. Course Administered Medications Sodium Chloride (Nss) 1,000 mls @ 65 mls/hr IV .[id number] FREEDOM Stop: 11/23/23 08:44 Last Admin: 10/24/23 19:53 Dose: 65 mls/hr Documented By: Infusion: 10/24/23 19:53 Dose: Infused Documented By: Infusion: 10/24/23 13:31 Dose: 65 mls/hr Documented By: Admin: 10/24/23 08:42 Dose: 125 mls/hr Documented By: LETICIA Pantoprazole Sodium 40 mg/ (Syringe) 10 mls @ 5 mls/min IV BID FREEDOM Stop: 11/23/23 20:59 Last Admin: 10/24/23 21:15 Dose: 5 mls/min Documented By: LAURIE Discontinued Medications Bupivacaine HCl/Epinephrine Bitart (Bupivacaine/Epinephrine 0.5% Mpf 1:200,000 30 Ml Vial) Confirm Administered Dose 30 ml .ROUTE .STK-MED ONE Stop: 10/24/23 07:55 Last Admin: 10/24/23 08:42 Dose: Not Given Documented By: LETICIA Diphenhydramine HCl (Diphenhydramine Capsule 25 Mg Cap) 25 mg PO NOW ONE Stop: 10/24/23 20:13 Last Admin: 10/24/23 21:15 Dose: 25 mg Documented By: LAURIE Pantoprazole Sodium 40 mg/ (Syringe) 10 mls @ 5 mls/min IV NOW ONE Stop: 10/24/23 08:46 Last Admin: 10/24/23 09:21 Dose: 5 mls/min Documented By: LETICIA Ioversol (Optiray 320 100ml) 94 ml IV ONCE ONE Stop: 10/24/23 07:51 Last Admin: 10/24/23 07:50 Dose: 94 ml Documented By: ABBE Ondansetron HCl (Ondansetron Inj 2 Mg/Ml 2 Ml Vial) 4 mg IV NOW STA Stop: 10/24/23 07:43 Last Admin: 10/24/23 07:44 Dose: 4 mg Documented By: LETICIA Ondansetron HCl (Ondansetron Inj 2 Mg/Ml 2 Ml Vial) Confirm Administered Dose 4 mg .ROUTE .STK-MED ONE Stop: 10/24/23 07:44 Last Admin: 10/24/23 07:44 Dose: Not Given Documented By: LETICIA Medical Decision Making Laboratory Data 10/25/23 04:28 10/25/23 04:28 Lab Results 10/24/23 10/24/23 10/24/23 Range/Units 07:24 07:30 07:35 WBC 3.57 L (4.8-10.8) K/ul RBC 4.37 L (4.70-6.10) M/uL Hgb 14.1 (14.0-18.0) g/dl POC Hgb 13.3 L (14.0-18.0) g/dl Hct 41.1 L (42.0-52.0) % POC Hct 39 L (42-52) % MCV 94.1 (80.0-100.0) fL MCH 32.3 (25.0-34.0) pg MCHC 34.3 (32.0-36.0) g/dL RDW Std Deviation 59.1 H (36.4-46.3) fL RDW Coeff of Eric 17.2 H (11.5-14.5) % Plt Count 32 L (130-400) K/uL MPV 12.5 H (9.4-12.4) fL Immature Gran % (Auto) 0.6 % Neut % (Auto) 79.2 % Lymph % (Auto) 11.8 % Thurston % (Auto) 6.4 % Eos % (Auto) 1.4 % Baso % (Auto) 0.6 % Neut # (Auto) 2.83 (1.40-6.50) K/uL Lymph # (Auto) 0.42 L (1.20-3.40) K/uL Thurston # (Auto) 0.23 (0.11-0.59) K/uL Eos # (Auto) 0.05 (0.00-0.50) K/uL Baso # (Auto) 0.02 (0.00-0.20) K/uL Immature Gran # (Auto) 0.02 (0.01-0.20) K/uL PT 15.7 H (9.0-12.0) Seconds INR 1.5 H (0.9-1.1) APTT 38 H (21-31) Seconds PTT Ratio 1.4 POC Sodium 141 (135-144) mmol/L Sodium 140 (136-145) mmol/L POC Potassium 4.4 (3.3-5.0) mmol/L Potassium 4.5 (3.5-5.1) mmol/L POC Chloride 106 (101-112) mmol/L Chloride 108 H (98-107) mmol/L Carbon Dioxide 25 (21-32) mmol/L POC Total CO2 22 L (24-31) mmol/L Anion Gap 7 (3-11) POC Anion Gap 19.0 (16-25) mmol/L POC BUN 13 (7-18) mg/dl BUN 15 (6-23) mg/dl Creatinine 1.18 (0.6-1.4) mg/dl POC Creatinine 1.2 (0.6-1.3) mg/dl Est Cr Clr Drug Dosing 101.6 ml/min Est GFR ( Amer) 80.0 ml/min Est GFR (Non-Af Amer) 69.1 ml/min BUN/Creatinine Ratio 12.7 (10-20) Glucose 115 H (70-99(Fasting)) mg/dl POC Glucose (other) 114 H (70-99) mg/dl Lactate 2.2 H* (0.4-2.0) mmol/L Calcium 9.4 (8.6-10.3) mg/dl POC Ioniz Calcium Eligio 1.22 (1.12-1.32) mmol/l Total Bilirubin 4.6 H (0.2-1.0) mg/dl AST 55 H (13-39) U/L ALT 34 (7-52) U/L Alkaline Phosphatase 92 (34-104) U/L Total Protein 5.7 L (6.0-8.3) gm/dl Albumin 3.4 (3.4-5.0) gm/dl Globulin 2.3 L (2.5-4.0) gm/dl Albumin/Globulin Ratio 1.5 (0.9-2) Lipase 61 (11-82) U/L Procalcitonin 0.10 (0-0.5) ng/ml Blood Type O Negative Antibody Screen NEGATIVE 10/24/23 Range/Units 09:47 WBC (4.8-10.8) K/ul RBC (4.70-6.10) M/uL Hgb (14.0-18.0) g/dl POC Hgb (14.0-18.0) g/dl Hct (42.0-52.0) % POC Hct (42-52) % MCV (80.0-100.0) fL MCH (25.0-34.0) pg MCHC (32.0-36.0) g/dL RDW Std Deviation (36.4-46.3) fL RDW Coeff of Eric (11.5-14.5) % Plt Count (130-400) K/uL MPV (9.4-12.4) fL Immature Gran % (Auto) % Neut % (Auto) % Lymph % (Auto) % Thurston % (Auto) % Eos % (Auto) % Baso % (Auto) % Neut # (Auto) (1.40-6.50) K/uL Lymph # (Auto) (1.20-3.40) K/uL Thurston # (Auto) (0.11-0.59) K/uL Eos # (Auto) (0.00-0.50) K/uL Baso # (Auto) (0.00-0.20) K/uL Immature Gran # (Auto) (0.01-0.20) K/uL PT (9.0-12.0) Seconds INR (0.9-1.1) APTT (21-31) Seconds PTT Ratio POC Sodium (135-144) mmol/L Sodium (136-145) mmol/L POC Potassium (3.3-5.0) mmol/L Potassium (3.5-5.1) mmol/L POC Chloride (101-112) mmol/L Chloride (98-107) mmol/L Carbon Dioxide (21-32) mmol/L POC Total CO2 (24-31) mmol/L Anion Gap (3-11) POC Anion Gap (16-25) mmol/L POC BUN (7-18) mg/dl BUN (6-23) mg/dl Creatinine (0.6-1.4) mg/dl POC Creatinine (0.6-1.3) mg/dl Est Cr Clr Drug Dosing ml/min Est GFR ( Amer) ml/min Est GFR (Non-Af Amer) ml/min BUN/Creatinine Ratio (10-20) Glucose (70-99(Fasting)) mg/dl POC Glucose (other) (70-99) mg/dl Lactate 2.7 H* (0.4-2.0) mmol/L Calcium (8.6-10.3) mg/dl POC Ioniz Calcium Eligio (1.12-1.32) mmol/l Total Bilirubin (0.2-1.0) mg/dl AST (13-39) U/L ALT (7-52) U/L Alkaline Phosphatase (34-104) U/L Total Protein (6.0-8.3) gm/dl Albumin (3.4-5.0) gm/dl Globulin (2.5-4.0) gm/dl Albumin/Globulin Ratio (0.9-2) Lipase (11-82) U/L Procalcitonin (0-0.5) ng/ml Blood Type Antibody Screen Imaging Data Radiologist's Impression: Abdomen/Pelvis CT 10/24/23 07:13 CT OF THE ABDOMEN AND PELVIS WITH CONTRAST CLINICAL HISTORY: Abdominal pain and vomiting. Hernia. COMPARISON STUDY: CT of the abdomen and pelvis August 26, 2023. TECHNIQUE: Following IV administration of 90 mL of Optiray, axial images of the abdomen and pelvis were obtained from the lung bases to the proximal femurs. Images were reviewed in the axial, sagittal, and coronal planes. IV contrast was administered without complication. Automated exposure control was utilized for the study. A dose lowering technique was utilized adhering to the principles of ALARA. CT DOSE: 1704.4 mGy.cm FINDINGS: Lung bases are unremarkable. No pneumatosis, free air or portal venous gas is present. Paraesophageal varices are noted. Large abdominal varices are again noted. Marked splenomegaly is unchanged. Spleen measures 22 cm in craniocaudal dimension. No perisplenic fluid is present. There is hepatic steatosis. Recanalized paraumbilical vein is noted. No hepatic lesions are identified on portal venous phase exam. There is no biliary or pancreatic ductal dilatation. Low-attenuation left renal lesions favor cysts. There is no hydronephrosis. Adrenal glands and pancreas are unremarkable. The appendix is normal. An umbilical hernia contains a loop of small bowel and results in a small bowel obstruction. The small bowel proximal to the hernia is moderately dilated and fluid-filled. There is a small amount of fluid within the hernia sac. The small bowel distal to the hernia sac is decompressed. There is trace ascites within the pelvis. No evidence for a large bowel obstruction. Major vasculature is patent. The main, left and right portal veins are patent. There is mild gastric wall thickening. IMPRESSION: 1. Small bowel obstruction due to a loop of small bowel within an umbilical hernia. Small bowel proximal to the hernia sac is moderately dilated and fluid- filled and small bowel distal to the hernia is decompressed. Small amount of associated ascites. 2. Evidence for portal hypertension with marked splenomegaly and extensive varices formation, similar to prior exam. Hepatic steatosis. 3. Mild gastric wall thickening thickening. This may represent gastritis. ACT 112: Negative or not required by law. Electronically signed by: Justin Barron M.D. 10/24/2023 8:15 AM MDM Narrative Patient was seen and evaluated as above in room A10 . Review was performed of triage nursing notes and vital signs. I did review pertinent previous visits and patient history. After obtaining a thorough history and physical examination the above work up was performed. Patient presents to us today for evaluation of periumbilical abdominal pain with a palpable, nonreducible hernia. The patient on assessment has a hernia. With the patient now noting vomiting earlier with this hernia I am concerned about umbilical hernia with obstruction. Significant other at bedside notes the patient has been attempting to press on the area and reduce since this has been present for over 24 hours now. The hernia does not appear to be immediately reducible. Options of care were discussed with the patient. IV access with established. Labs were drawn. IV Zofran ordered for nausea. CT scan was ordered of the abdomen/pelvis with IV contrast to further evaluate. Simultaneously I did ask staff to page general surgery noting the patient's presentation and clinical findings and urgent need for general surgery evaluation. 7:23 AM: I spoke with RODDY Jain with general surgery. Pending CT scan at this time, but patient may require urgent operative intervention. The operating room will be prepped. I will order the patient platelets as the patient is noted to be thrombocytopenic and it is felt that the benefit of the platelets outweigh risk. Pancytopenia noted upon review of labs. There is hemoglobin however of 14.1 which is improved compared to previous. Patient does note transfusion in the past. INR 1.5. No emergent metabolic disturbance but I will note mild lactate elevation at 2.2 which I believe to be secondary to the patient's obstructed umbilical hernia. He does not have any fever. The patient does have elevation of T. bili at 4.6 and does have scleral icterus on examination. This is above his baseline. Lipase is within normal limits. Urinalysis does not suggest infection. CT scan shows small bowel obstruction due to a loop of small bowel within the umbilical hernia. Small bowel proximal to the hernia sac is moderately dilated and fluid-filled and small bowel distal to the hernia is decompressed. Small amount of associated ascites. There is also evidence for portal hypertension with marked splenomegaly and extensive varices formation, similar to prior examination. Hepatic steatosis. There is also note of mild gastric wall thickening, this may represent gastritis per radiology. I also reviewed the imaging. I will hold off on NG tube however at the present time noting the varices as i am concerned that the risk of injuring these areas/causing bleeding far outweighs the benefit. I will note the patient has had no further vomiting during his time here. 8:20 AM: I spoke to MARIA LUZ Patel with the [facility] hospitalist service as the patient will require hospitalization after urgent surgery. 8:25 AM: I then was notified by the general surgery service, that General surgery recommends transfer. I immediately had staff begin starting the transfer process. The patient does follow with [facility] hepatology and in speaking with patient we will proceed to [facility]. 8:37 HALEIGH received a phone call from [facility] transfer center that obtained more information on the patient. 9:[address] Storey, systems triage officer with [facility]. At that time he was gathering the specialists needed to have a collective phone call/discussion about the patient however I will note that at this time our general surgeon, Dr. Baird is at bedside and is attempting to reduce the hernia. Dr. Storey asked that if we reduce the hernia we update him as this would change transfer decision/plan. 9:25 AMDr. Quinteros message me that she has successfully reduced the hernia. I did immediately present to bedside. Patient was feeling tremendously better. Dr. Baird does recommend roll of gauze at the umbilicus followed by Tex wrap around the abdomen to help with some mild counterpressure at the site of the palpable defect. This was applied however great care was taken so as not apply too tightly. 9:[address] Moses that the hernia per general surgery has been reduced. Patient is feeling much better at this time. I do believe the patient would benefit from inpatient management. We will proceed with inpatient management here however if the patient would change his status/decompensate at all we will proceed with transfer. I updated the patient as well as significant other at bedside several times throughout his time here in the emergency department. Patient continued to clinically do well post manual reduction by general surgery here. Patient will need to be observed and closely monitored for any change of status. We will need to ensure that the contents that were previously within the hernia are viable/trend clinical status and the patient is aware of this. At this time the patient will be admitted. Please refer to further documentation regarding his stay. Upon multiple reassessments the patient continues to have 0 abdominal pain. Repeat physical abdominal examinations reveal no further tenderness of the abdomen or palpable protrusion of abdominal contents through the hernia defect. The patient I will note does have stable vital signs. He is not febrile. There is no hypotension. No tachycardia. I have an overall low suspicion of infectious etiology at this time. In the evaluation and treatment of this patient the following differential diagnoses entertained: Bowel obstruction, hernia, necrotic intestine/ischemic intestine, liver failure, perforation, peritonitis, among others Impression & Plan Umbilical hernia with obstruction Discharge Plan Visit Data Chief Complaint: Pain (Generalized) Stated Complaint: HERNIA-PAIN ED Provider: [facility] Midlevel Provider: Lucian Gifford Discharge Problem: Umbilical hernia with obstruction Patient Disposition: Admitted As Inpatient Discharge Instructions Interventions: ED Discharge Assessment Last Done: 10/24/23 11:29
[2023-10-24] MEDS: ONDANSETRON INJ 2 MG/ML 2 ML VIAL ONE (07:44)
[2023-10-24] MEDS: ONDANSETRON INJ 2 MG/ML 2 ML VIAL IV STA (07:44)
--- NOTE | 2023-10-24 07:48 | Anesthesiology Consultation ---
Date of Service October 24, 2023 Assessment & Plan (1) Encounter for pre-operative examination: Chart Review Chart Review: Acceptable Risk for Surgery and Patient NOT seen in Pre Admission Testing Consults Requested none History Surgery Operation Date: 10/24/23 10:50 Proposed Procedures p Open Incarcerated Umbilical Hernia Repair - Steph Quinteros DO Height/Weight Height: 6 ft 3 in Weight: 127.1 kg Allergies Allergy/AdvReac Type Severity Reaction Status Date / Time amoxicillin Allergy Intermediate RASH Verified 09/22/23 14:27 Medications Home Medications Medication Instructions Recorded Confirmed Last Taken acetaminophen 500 mg tablet 1,000 mg PO Q6H PRN Pain 09/10/22 09/22/23 Unknown (Tylenol Extra Strength) ammonium lactate 12 % topical cream 1 applic topical BID PRN Other 09/10/22 09/22/23 Unknown nadolol 20 mg tablet 20 mg PO DAILY 09/10/22 09/22/23 Unknown omeprazole 20 mg capsule,delayed 20 mg PO QAM 09/10/22 09/22/23 Unknown release ergocalciferol (vitamin D2) 1,250 50,000 unit PO WK 08/26/23 09/22/23 Unknown mcg (50,000 unit) capsule lisinopril 20 1 tab PO DAILY 08/26/23 09/22/23 Unknown mg-hydrochlorothiazide 12.5 mg tablet ferrous sulfate 325 mg (65 mg 325 mg PO QAM #30 tabs 08/30/23 09/22/23 Unknown iron) tablet,delayed release Past Family History Family History Grandfather (Paternal) Cancer Past Surgical History Surgical History History of colonoscopy History of esophagogastroduodenoscopy (EGD) Social History Smoking Status: Never smoker Hx Alcohol Use: Yes alcohol intake frequency: holidays/special occasions only Hx Substance Use: No Physical Exam Vital Signs Last Vital Signs Temp 98.4 F 10/24/23 06:50 Pulse 70 10/24/23 07:45 Resp 18 10/24/23 06:50 BP 124/68 10/24/23 06:50 Pulse Ox 99 10/24/23 07:35 O2 Del Method Room Air 10/24/23 07:35 Testing Electrocardiogram Date: 08/26/23 Findings: + NSR @ Echocardiogram Date: 08/27/23 EF: 60-65 LV Function: normal
[2023-10-24] MEDS ORDERED: MIDAZOLAM HCL 1 MG/ML 2ML VIAL ONE (07:49)
[2023-10-24] MEDS ORDERED: PROPOFOL IV EMULSION 10 MG/ML 20 ML VIAL IV ONE (07:49)
[2023-10-24] MEDS ORDERED: ONDANSETRON INJ 2 MG/ML 2 ML VIAL ONE (07:49)
[2023-10-24] MEDS ORDERED: ROCURONIUM BROMIDE 10 MG/ML 5 ML VIAL IV ONE (07:49)
[2023-10-24] MEDS ORDERED: SUCCINYLCHOLINE CHLORIDE 20 MG/ML 10 ML VIAL IV ONE (07:49)
[2023-10-24] MEDS ORDERED: fentaNYL citrate PF 100 MCG/2 ML VIAL ONE (07:49)
[2023-10-24] MEDS ORDERED: DEXAMETHASONE SOD INJ 4 MG/ML VIAL ONE (07:49)
[2023-10-24] MEDS ORDERED: LIDOCAINE 2% 2 ML VIAL/AMP(20MG/ML) INFIL ONE (07:49)
[2023-10-24] MEDS ORDERED: SODIUM CHLORIDE 0.9% 250 ML IV PRN ×2 (07:50→09:04)
[2023-10-24] MEDS: OPTIRAY 320 100ml IV ONE (07:50)
[2023-10-24 07:51] LABS: Basophils # (auto) 0.02 K/uL (0.00-0.20); Basophils % (auto) 0.6 %; Eosinophils # (auto) 0.05 K/uL (0.00-0.50); Eosinophils % (auto) 1.4 %; Hematocrit (blood only) 41.1 % (42.0-52.0); Hemoglobin 14.1 g/dl (14.0-18.0); Immature Granulocytes # (auto) 0.02 K/uL (0.01-0.20); Immature Granulocytes % (auto) 0.6 %; Lymphocytes # (auto) 0.42 K/uL (1.20-3.40); Lymphocytes % (auto) 11.8 %; Mean Corpuscular Hemoglobin 32.3 pg (25.0-34.0); Mean Corpuscular Hgb Conc 34.3 g/dL (32.0-36.0); Mean Corpuscular Volume 94.1 fL (80.0-100.0); Mean Platelet Volume 12.5 fL (9.4-12.4); Monocytes # (auto) 0.23 K/uL (0.11-0.59); Monocytes % (auto) 6.4 %; Neutrophils # (auto) 2.83 K/uL (1.40-6.50); Neutrophils % (auto) 79.2 %; Platelet Count 32 K/uL (130-400); RDW Coefficient of Variation 17.2 % (11.5-14.5); RDW Standard Deviation 59.1 fL (36.4-46.3); Red Blood Count 4.37 M/uL (4.70-6.10); White Blood Count 3.57 K/ul (4.8-10.8)
[2023-10-24] MEDS ORDERED: ACETAMINOPHEN 1000 MG/100 ML IV IV ONE (07:53)
[2023-10-24 08:03] LABS: Albumin Globulin Ratio 1.5 (0.9-2); Albumin Level 3.4 gm/dl (3.4-5.0); BUN Creatinine Ratio 12.7 (10-20); Bilirubin,Total 4.6 mg/dl (0.2-1.0); Calcium 9.4 mg/dl (8.6-10.3); Creatinine Clr Calc Pharmacy 101.6 ml/min; Est GFR (Non-African American) 69.1 ml/min; Globulin 2.3 gm/dl (2.5-4.0); Potassium 4.5 mmol/L (3.5-5.1); Total Protein 5.7 gm/dl (6.0-8.3)
[2023-10-24 08:12] LABS: INR 1.5 (0.9-1.1); Partial Thromboplastin Ratio 1.4; Partial Thromboplastin Time 38 Seconds (21-31); Prothrombin Time 15.7 Seconds (9.0-12.0)
--- NOTE | 2023-10-24 08:17 | CT Scan Report ---
CT OF THE ABDOMEN AND PELVIS WITH CONTRAST CLINICAL HISTORY: Abdominal pain and vomiting. Hernia. COMPARISON STUDY: CT of the abdomen and pelvis August 26, 2023. TECHNIQUE: Following IV administration of 90 mL of Optiray, axial images of the abdomen and pelvis we re obtained from the lung bases to the proximal femurs. Images were reviewed in the axial, sagittal, and coronal planes. IV contrast was administered without complication. Automated exposure control wa s utilized for the study. A dose lowering technique was utilized adhering to the principles of ALARA . CT DOSE: 1704.4 mGy.cm FINDINGS: Lung bases are unremarkable. No pneumatosis, free air or portal venous gas is present. Para esophageal varices are noted. Large abdominal varices are again noted. Marked splenomegaly is unchang ed. Spleen measures 22 cm in craniocaudal dimension. No perisplenic fluid is present. There is hepati c steatosis. Recanalized paraumbilical vein is noted. No hepatic lesions are identified on portal aubrie ous phase exam. There is no biliary or pancreatic ductal dilatation. Low-attenuation left renal lesio ns favor cysts. There is no hydronephrosis. Adrenal glands and pancreas are unremarkable. The appendi x is normal. An umbilical hernia contains a loop of small bowel and results in a small bowel obstruct ion. The small bowel proximal to the hernia is moderately dilated and fluid-filled. There is a small amount of fluid within the hernia sac. The small bowel distal to the hernia sac is decompressed. Ther e is trace ascites within the pelvis. No evidence for a large bowel obstruction. Major vasculature is patent. The main, left and right portal veins are patent. There is mild gastric wall thickening. IMPRESSION: 1. Small bowel obstruction due to a loop of small bowel within an umbilical hernia. Small bowel proxi mal to the hernia sac is moderately dilated and fluid-filled and small bowel distal to the hernia is decompressed. Small amount of associated ascites. 2. Evidence for portal hypertension with marked splenomegaly and extensive varices formation, similar to prior exam. Hepatic steatosis. 3. Mild gastric wall thickening thickening. This may represent gastritis. ACT 112: Negative or not required by law. Electronically signed by: Justin Barron M.D. 10/24/2023 8:15 AM
[2023-10-24] MEDS: SODIUM CHLORIDE 0.9% 1,000 ML IV SCH (08:42)
[2023-10-24] MEDS: BUPIVACAINE/EPINEPHRINE 0.5% MPF 1:200,000 30 ML VIAL ONE (08:42)
--- NOTE | 2023-10-24 08:42 | Surgery Consultation ---
Date of Consultation October 24, 2023 History of Present Illness Reason for Consultation: incarcerated umbilical hernia Requesting Physician: Lucian Gifford PA-C History of Present Illness Patient is a 53 yo male with PMH of non alcoholic liver disease , GERD, HTN , mitral regurgitation, cirrhosis, neutropenia that presented to the [facility] ER with c/o abdominal pain and a non-reducible umbilical hernia since yesterday with associated nausea and vomiting. Allergies Allergy/AdvReac Type Severity Reaction Status Date / Time amoxicillin Allergy Intermediate RASH Verified 09/22/23 14:27 Home Medications Medication Instructions Recorded Confirmed Type acetaminophen 500 mg tablet 1,000 mg PO Q6H PRN Pain 09/10/22 09/22/23 History (Tylenol Extra Strength) ammonium lactate 12 % topical cream 1 applic topical BID PRN Other 09/10/22 09/22/23 History nadolol 20 mg tablet 20 mg PO DAILY 09/10/22 09/22/23 History omeprazole 20 mg capsule,delayed 20 mg PO QAM 09/10/22 09/22/23 History release ergocalciferol (vitamin D2) 1,250 50,000 unit PO WK 08/26/23 09/22/23 History mcg (50,000 unit) capsule lisinopril 20 1 tab PO DAILY 08/26/23 09/22/23 History mg-hydrochlorothiazide 12.5 mg tablet ferrous sulfate 325 mg (65 mg 325 mg PO QAM #30 tabs 08/30/23 09/22/23 Rx iron) tablet,delayed release Patient History Surgical History History of colonoscopy History of esophagogastroduodenoscopy (EGD) Family History Grandfather (Paternal) Cancer Social History Smoking Status: Never smoker Hx Alcohol Use: Yes Hx Substance Use: No Preferred Language: French Communication Ability: Effective Vegetable Preparer Required: No Beliefs That Will Affect Care: None Current Living Situation: Significant Other Current Living Situation Comment: patient lives with girlfriend Feels Safe at Home: Yes Assistive Devices: None Results & Data Vital Signs (Past 12 Hours) Vital Signs Temp Pulse Pulse Resp BP BP Pulse Ox 10/24/23 08:12 76 22 128/74 96 10/24/23 07:45 70 10/24/23 07:35 99 10/24/23 06:50 98.4 F 68 18 124/68 99 10/24/23 06:50 98.4 F 66 18 124/68 99 O2 Del Method 10/24/23 08:12 Room Air 10/24/23 07:45 10/24/23 07:35 Room Air 10/24/23 06:50 Room Air 10/24/23 06:50 Room Air PG Care Time/CCT Total # of Minutes Spent Total Time Spent with Patient: Total time spent is greater than 50% in coordination of care (as documented) at patient's floor/unit and/or counseling patient: Coding
[2023-10-24] MEDS: PANTOprazole 40 MG in SYRINGE 0 ML IV ONE (09:21)
--- NOTE | 2023-10-24 09:32 | Surgery Consultation ---
Date of Consultation October 24, 2023 Assessment & Plan (1) Umbilical hernia with obstruction: (2) Portal hypertension: (3) Esophageal varices: (4) Pancytopenia: Plan 53M with significant liver disease and chronic umbilical hernia that he was unable to reduce at home. P/w associated symptoms of SBO with N/V, CT confirmed. Afebrile, HD stable. Hernia reduced in the ED. IVF were initiated in the ED in addition to an order for platelet transfusion when transfer for OR was initially planned. As the transfer center had been in connection with ED personnel, [facility] was attempting to get a multidisciplinary team all on board for this high risk patient including the military police officer to coordinate transfer and further care, preparing for a potential life flight if the hernia could not be reduced. During this time, I had been working on the hernia and was able to initially achieve a partial reduction. At that time, I personally re-reviewed the CT scans to help guide the final reduction. I was then able to perform full reduction of the hernia. With that, Beto would not likely perform acute surgical intervention with the hernia no longer posing an acute issue and considering the patient's current co-morbidities with high risk for what would now be a semi-elective surgery. They recommend remaining here for observation to d/c with out patient follow up. He may be admitted to medicine with conservative SBO management along with other necessary medical management. Would keep him NPO until he begins passing flatus at which time his diet can be advanced as tolerated. Kerlix with abdominal binder being applied in the ED, he should keep this in pl ophelia, especially prior to getting up out of bed if he does not wish to wear it over night. Would recommend continued follow up with his PCP and other specialists at discharge. Surgery will sign off at this time as obstruction has been non-surgically relieved. Please re-call if needed. History of Present Illness Reason for Consultation: incarcerated umbilical hernia History of Present Illness Mr. Mariscal is a 53M with liver disease for which he has been under recent otilio luation for potential liver transplant. He has a known umbilical hernia which he usually reduces on his own but became unable to do so when he awoke in pain yesterday. Due to progression of symptoms to include N/V and the persistent inability to reduce this, he presents to the ED with abdominal pain, irreducible hernia and N/V. In the ED, the patient is noted to have thrombocytopenia, hyperbilirubinemia 4.6, coagulopathy with INR 1.5 and lactate 2.2. Afebrile and HD stable. A CT A/P revealed an umbilical hernia containing a loop of dilated bowel with evidence for bowel obstruction in addition to numerous signs of portal hypertension and advanced liver disease on imaging. Surgery was consulted for potential OR reduction. In discussion with the ED physician regarding the patient's history, and personal review of CT imaging, I advised transfer as the patient is not a candidate for any surgery at this location as he would need a multidisciplinary team approach for pre op and post op care. We initiated bed positioning, ice packs and had initially discussed NGT insertion with PPI to help temporize and/or aid in my attempt at reduction but due to concerns of the notable esophageal varices, even this would be risky and thus was negated. Upon my evaluation of the patient, he does appear comfortable, reports he had just had a vomiting episode roughly a half hour prior with minimal relief. He explains that he is usually able to push this back in. He has been under evaluation for potential repair but also timing due to his significant liver disease. He notes he has had to push this in more frequently lately up to 5 times per day which is noticeably more problematic. He denies F/C or other associated symptoms. Allergies Allergy/AdvReac Type Severity Reaction Status Date / Time amoxicillin Allergy Intermediate RASH Verified 09/22/23 14:27 adhesive tape Allergy Unknown "may have Unverified 10/24/23 09:10 allergy to tape; had hives" Home Medications Medication Instructions Recorded Confirmed Type acetaminophen 500 mg tablet 1,000 mg PO Q6H PRN Pain 09/10/22 10/24/23 History (Tylenol Extra Strength) ammonium lactate 12 % topical cream 1 applic topical BID PRN Other 09/10/22 10/24/23 History nadolol 20 mg tablet 20 mg PO DAILY 09/10/22 10/24/23 History omeprazole 20 mg capsule,delayed 20 mg PO QAM 09/10/22 10/24/23 History release lisinopril 20 1 tab PO DAILY 08/26/23 10/24/23 History mg-hydrochlorothiazide 12.5 mg tablet ferrous sulfate 325 mg (65 mg 325 mg PO QAM #30 tabs 08/30/23 10/24/23 Rx iron) tablet,delayed release Vitamin D3 1 cap PO DAILY 10/24/23 10/24/23 History copper 8 mg PO DAILY 10/24/23 10/24/23 History lactulose 10 gram/15 mL oral 30 ml PO TID PRN Other 10/24/23 10/24/23 History solution multivitamin 1 tab PO DAILY 10/24/23 10/24/23 History Patient History Surgical History History of colonoscopy History of esophagogastroduodenoscopy (EGD) Family History Grandfather (Paternal) Cancer Social History Smoking Status: Never smoker Hx Alcohol Use: Yes Hx Substance Use: No Preferred Language: Mosotho Communication Ability: Effective Electric Cell Tender Required: No Beliefs That Will Affect Care: None Current Living Situation: Significant Other Current Living Situation Comment: patient lives with girlfriend Feels Safe at Home: Yes Assistive Devices: None Review of Systems Constitutional: no fever, no chills, no sweats and no body aches Respiratory: + cough (dry); no chest congestion, no d yspnea, no hemoptysis and no sputum production Cardiovascular: + lightheadedness (since last visit in [facility]) and + edema (reports LE edema in the evening); no chest pain, no dyspnea at rest, no orthopnea, no syncope and no calf pain Gastrointestinal: + abdominal pain, + nausea, + vomiting a nd + diarrhea/loose stools (chronic, since last visit in August); no blood in stools Physical Exam Constitutional: + ill appearing (chronically so); no acu te distress, not intoxicated appearing, no altered mental status and not diaphoretic Respiratory: normal respiratory effort; no respiratory distress, no labored breathing and does not use accessory muscles Cardiovascular: Rate/Rhythm: regular rate; not tachycardic Extremities: no calf tenderness and no pedal edema Results & Data Vital Signs (Past 12 Hours) Vital Signs Temp Pulse Pulse Resp BP BP Pulse Ox 10/24/23 09:17 36.7 C 71 20 125/66 97 10/24/23 08:12 76 22 128/74 96 10/24/23 07:45 70 10/24/23 07:35 99 10/24/23 06:50 36.9 C 68 18 124/68 99 10/24/23 06:50 36.9 C 66 18 124/68 99 O2 Del Method 10/24/23 09:17 10/24/23 08:12 Room Air 10/24/23 07:45 10/24/23 07:35 Room Air 10/24/23 06:50 Room Air 10/24/23 06:50 Room Air Laboratory Results Pertinent labs as mentioned in the HPI Diagnostic Findings [place], [place] [phone] CT Scan Report Patient: MARLEN MARISCAL Admit Date: 10/24/23 MR#: [id number] Address[address]: [address] [facility] Acct ID:[id number] Address2: Date: 1970 [facility] Zip: [place] [address] Age: 53 Location: ED Sex: M Room/Bed: Att Phy: Diagnosis: HERNIA-PAIN Daxa Phy: Suzanne Alex C.N.P. Service Date: 10/24/23 Fam Phy: Interpreting Phy: Justin Barron MDAdmit Phy: Ordering Phy: Lucian Gifford PA-C cc: ~ CT OF THE ABDOMEN AND PELVIS WITH CONTRAST CLINICAL HISTORY: Abdominal pain and vomiting. Hernia. COMPARISON STUDY: CT of the abdomen and pelvis August 26, 2023. TECHNIQUE: Following IV administration of 90 mL of Optiray, axial images of the abdomen and pelvis were obtained from the lung bases to the proximal femurs. Images were reviewed in the axial, sagittal, and coronal planes. IV contrast was administered without complication. Automated exposure control was utilized for the study. A dose lowering technique was utilized adhering to the principles of ALARA. CT DOSE: 1704.4 mGy.cm FINDINGS: Lung bases are unremarkable. No pneumatosis, free air or portal venous gas is present. Paraesophageal varices are noted. Large abdominal varices are again noted. Marked splenomegaly is unchanged. Spleen measures 22 cm in craniocaudal dimension. No perisplenic fluid is present. There is hepatic steatosis. Recanalized paraumbilical vein is noted. No hepatic lesions are identified on portal venous phase exam. There is no biliary or pancreatic ductal dilatation. Low-attenuation left renal lesions favor cysts. There is no hydronephrosis. Adrenal glands and pancreas are unremarkable. The appendix is normal. An umbilical hernia contains a loop of small bowel and results in a small bowel obstruction. The small bowel proximal to the hernia is moderately dilated and fluid-filled. There is a small amount of fluid within the hernia sac. The small bowel distal to the hernia sac is decompressed. There is trace ascites within the pelvis. No evidence for a large bowel obstruction. Major vasculature is patent. The main, left and right portal veins are patent. There is mild gastric wall thickening. IMPRESSION: 1. Small bowel obstruction due to a loop of small bowel within an umbilical hernia. Small bowel proximal to the hernia sac is moderately dilated and fluid- filled and small bowel distal to the hernia is decompressed. Small amount of associated ascites. 2. Evidence for portal hypertension with marked splenomegaly and extensive varices formation, similar to prior exam. Hepatic steatosis. 3. Mild gastric wall thickening thickening. This may represent gastritis. Results Complete Blood Count Results: RBC 4.37 M/uL (4.70-6.10) L 10/24/23 WBC 3.57 K/ul (4.8-10.8) L 10/24/23 Hgb 14.1 g/dl (14.0-18.0) 10/24/23 Hct 41.1 % (42.0-52.0) L 10/24/23 Plt Count 32 K/uL (130-400) L 10/24/23 PG Care Time/CCT Total # of Minutes Spent Total Time Spent with Patient: Total time spent is greater than 50% in coordination of care (as documented) at patient's floor/unit and/or counseling patient: Coding Level of Care Code 21872 IN/OBS CONSULT LVL 5,80M Diagnoses Umbilical hernia with obstruction K42.0 Portal hypertension K76.6 Secondary esophageal varices without bleeding I85.10 Esophageal varices type: secondary Esophageal varices bleeding: without bleeding Pancytopenia D61.818 (3) Esophageal varices Esophageal varices type: secondary Esophageal varices bleeding: without bleeding Qualified Code(s): I85.10 - Secondary esophageal varices without bleeding
--- NOTE | 2023-10-24 11:11 | History & Physical Report ---
Date of Service October 24, 2023 Assessment & Plan (1) Umbilical hernia with obstruction: Plan: This is a 53 y/o male with cirrhosis due to fatty liver disease, with esophageal/gastric varices, chronic thrombocytopenia, portal hypertension, HTN, vitamin D deficiency, and other history as outlined who presents to the ED today with abdominal pain and nausea and inability to reduce known umbilical hernia. He has been unable to have this repaired electively due to thrombocytopenia and increased risk for complications with known cirrhosis. Work-up in the ED included a CT that showed SBO due to loop of small bowel within an umbilical hernia, SB proximal to hernia sac moderately dilated and fluid filled with SB distal to hernia decompressed. Initially, the [place] [facility] [place] but surgeon was able to successfully reduce the hernia in the ED so patient was referred for admission for observation. - Admit to med telemetry - NPO until passing flatus per surgeon's recommendations - Holding NGT due to known gastric and esophageal varices - PRN anti-emetics - IVF while NPO - Discussed with patient the importance of notifying nursing staff with any recurrent pain, N/V or recurrence of hernia in which case would need to reconsult general surgery - Repeat lactate this afternoon (2) Cirrhosis: Plan: Unclear etiology but likely secondary to fatty liver disease, mention of alpha-1 antitrypsin deficiency in the chart but pt does not recall ever being diagnosed with this previously. Continue outpatient regimen as able Extensive discussion with patient about this diagnosis and potential complication as he and his partner had multiple questions. He will keep scheduled f/u with transplant clinic later this month. (3) Thrombocytopenia: Plan: Chronic issue, pt did receive one unit of platelets this morning in anticipation of potential OR. Repeat CBC in the AM (4) HTN (hypertension): Plan: Currently BP is stable. Continue nadolol, holding HCTZ while NPO Plan Pt seen and reviewed with collaborating physician, Dr. Boo. Plan of care discussed and as outlined above. Code status: full code DVT prophylaxis: SCDs for now Admit to med telemetry. If recurrent pain or vomiting, consider [place] [facility] [place] Francia Patel PA-C History of Present Illness Chief Complaint: abdominal pain from hernia Primary Care Provider: Suzanne Alex, [employer] This is a 53 y/o male with cirrhosis due to fatty liver disease, with esophageal/gastric varices, chronic thrombocytopenia, portal hypertension, HTN, vitamin D deficiency, and other history as outlined who presents to the ED today with abdominal pain and nausea. Pt has a known umbilical hernia for which he previously saw general surgery to discuss possible repair. Outpatient general surgery note from 2019 was reviewed - surgical repair was deferred due to increased risk of complications from underlying cirrhosis and thrombocytopenia and lack of symptoms. Pt reports frequently needing to reduce the hernia at home, which he is typically able to do without difficulty. However, yesterday, he wasn't feeling well and the hernia was present when he awoke. He attempted multiple times to reduce the hernia at home yesterday but was unable to. Continued pain and nausea all day but declined to go to the ED. Around 3 am today, he developed multiple episodes of emesis and was still unable to reduce the hernia so came to the ED for evaluation. He denies fevers, chills, sweats, chest pain, dyspnea. Baseline bowel pattern is multiple loose stools daily - not using lactulose (told to use if <3 BM/day). No blood in stools. He notes decreased urine output and frequency yesterday and today but also reports that he has not been eating or drinking much since Tuesday when he was in his usual state of health. He is starting the [place] [facility] [place] Allergies Allergy/AdvReac Type Severity Reaction Status Date / Time amoxicillin Allergy Intermediate RASH Verified 09/22/23 14:27 adhesive tape Allergy Unknown "may have Unverified 10/24/23 09:10 allergy to tape; had hives" Home Medications Medication Instructions Recorded Confirmed Type acetaminophen 500 mg tablet 1,000 mg PO Q6H PRN Pain 09/10/22 10/24/23 History (Tylenol Extra Strength) ammonium lactate 12 % topical cream 1 applic topical BID PRN Other 09/10/22 10/24/23 History nadolol 20 mg tablet 20 mg PO DAILY 09/10/22 10/24/23 History omeprazole 20 mg capsule,delayed 20 mg PO QAM 09/10/22 10/24/23 History release lisinopril 20 1 tab PO DAILY 08/26/23 10/24/23 History mg-hydrochlorothiazide 12.5 mg tablet ferrous sulfate 325 mg (65 mg 325 mg PO QAM #30 tabs 08/30/23 10/24/23 Rx iron) tablet,delayed release Vitamin D3 1 cap PO DAILY 10/24/23 10/24/23 History copper 8 mg PO DAILY 10/24/23 10/24/23 History lactulose 10 gram/15 mL oral 30 ml PO TID PRN Other 10/24/23 10/24/23 History solution multivitamin 1 tab PO DAILY 10/24/23 10/24/23 History Past Med/Surg History Problem List (Updated 10/24/23 @ 13:37 by Leona Patel PA-C) Umbilical hernia with obstruction Encounter for pre-operative examination Edema Splenomegaly Esophageal varices Portal hypertension Cirrhosis Neutropenia (Acute) Umbilical hernia Thrombocytopenia (Acute) HTN (hypertension) Medical History Mild tricuspid regurgitation Mild mitral regurgitation Pancytopenia Ventral hernia Surgical History History of colonoscopy History of esophagogastroduodenoscopy (EGD) Family History Grandfather (Paternal) Cancer Social History Smoking Status: Never smoker Hx Alcohol Use: No Hx Substance Use: No Preferred Language: Czech Communication Ability: Effective 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 Required: No Beliefs That Will Affect Care: None Current Living Situation: Spouse and Family Current Living Situation Comment: patient lives with girlfriend Feels Safe at Home: Yes Safety Concerns: Feels Safe At This Time Assistive Devices: None Review of Systems Review of Systems: All systems reviewed & are unremarkable except as noted in Subjective Physical Exam Physical Exam: General: awake, alert, NAD, Ox3 HEENT: trace scleral icterus, slightly dry oral mucosa Neck: trachea midline Heart: RRR Lungs: CTA bilaterally Abdomen: soft, hypoactive BS, non-tender Extremities: trace LE edema with chronic stasis changes Neurologic: no confusion or dysarthria, moving all extremities Results & Data Results & Data Vital Signs (Past 12 Hours) Vital Signs Temp Pulse Pulse Resp BP BP Pulse Ox 10/24/23 10:20 36.8 C 77 18 119/67 97 10/24/23 09:50 36.7 C 73 18 117/69 98 10/24/23 09:42 76 18 112/69 99 10/24/23 09:35 36.5 C 73 18 112/69 98 10/24/23 09:17 36.7 C 71 20 125/66 97 10/24/23 08:12 76 22 128/74 96 10/24/23 07:45 70 10/24/23 07:35 99 10/24/23 06:50 36.9 C 68 18 124/68 99 10/24/23 06:50 36.9 C 66 18 124/68 99 O2 Del Method 10/24/23 10:20 10/24/23 09:50 10/24/23 09:42 Room Air 10/24/23 09:35 10/24/23 09:17 10/24/23 08:12 Room Air 10/24/23 07:45 10/24/23 07:35 Room Air 10/24/23 06:50 Room Air 10/24/23 06:50 Room Air Laboratory Results Lab Results 10/24/23 10/24/23 10/24/23 Range/Units 07:24 07:30 09:47 WBC 3.57 L (4.8-10.8) K/ul RBC 4.37 L (4.70-6.10) M/uL Hgb 14.1 (14.0-18.0) g/dl Hct 41.1 L (42.0-52.0) % MCV 94.1 (80.0-100.0) fL MCH 32.3 (25.0-34.0) pg MCHC 34.3 (32.0-36.0) g/dL RDW Std Deviation 59.1 H (36.4-46.3) fL RDW Coeff of Eric 17.2 H (11.5-14.5) % Plt Count 32 L (130-400) K/uL MPV 12.5 H (9.4-12.4) fL Immature Gran % (Auto) 0.6 % Neut % (Auto) 79.2 % Lymph % (Auto) 11.8 % Jay % (Auto) 6.4 % Eos % (Auto) 1.4 % Baso % (Auto) 0.6 % Neut # (Auto) 2.83 (1.40-6.50) K/uL Lymph # (Auto) 0.42 L (1.20-3.40) K/uL Jay # (Auto) 0.23 (0.11-0.59) K/uL Eos # (Auto) 0.05 (0.00-0.50) K/uL Baso # (Auto) 0.02 (0.00-0.20) K/uL Immature Gran # (Auto) 0.02 (0.01-0.20) K/uL PT 15.7 H (9.0-12.0) Seconds INR 1.5 H (0.9-1.1) APTT 38 H (21-31) Seconds PTT Ratio 1.4 Sodium 140 (136-145) mmol/L Potassium 4.5 (3.5-5.1) mmol/L Chloride 108 H (98-107) mmol/L Carbon Dioxide 25 (21-32) mmol/L Anion Gap 7 (3-11) BUN 15 (6-23) mg/dl Creatinine 1.18 (0.6-1.4) mg/dl Est Cr Clr Drug Dosing 101.6 ml/min Est GFR ( Amer) 80.0 ml/min Est GFR (Non-Af Amer) 69.1 ml/min BUN/Creatinine Ratio 12.7 (10-20) Glucose 115 H (70-99(Fasting)) mg/dl Lactate 2.2 H* 2.7 H* (0.4-2.0) mmol/L Calcium 9.4 (8.6-10.3) mg/dl Total Bilirubin 4.6 H (0.2-1.0) mg/dl AST 55 H (13-39) U/L ALT 34 (7-52) U/L Alkaline Phosphatase 92 (34-104) U/L Ammonia (18-72) umol/L Total Protein 5.7 L (6.0-8.3) gm/dl Albumin 3.4 (3.4-5.0) gm/dl Globulin 2.3 L (2.5-4.0) gm/dl Albumin/Globulin Ratio 1.5 (0.9-2) Lipase 61 (11-82) U/L Procalcitonin 0.10 (0-0.5) ng/ml Blood Type O Negative Antibody Screen NEGATIVE 09/16/24 Range/Units Unknown WBC (4.8-10.8) K/ul RBC (4.70-6.10) M/uL Hgb (14.0-18.0) g/dl Hct (42.0-52.0) % MCV (80.0-100.0) fL MCH (25.0-34.0) pg MCHC (32.0-36.0) g/dL RDW Std Deviation (36.4-46.3) fL RDW Coeff of Eric (11.5-14.5) % Plt Count (130-400) K/uL MPV (9.4-12.4) fL Immature Gran % (Auto) % Neut % (Auto) % Lymph % (Auto) % Jay % (Auto) % Eos % (Auto) % Baso % (Auto) % Neut # (Auto) (1.40-6.50) K/uL Lymph # (Auto) (1.20-3.40) K/uL Jay # (Auto) (0.11-0.59) K/uL Eos # (Auto) (0.00-0.50) K/uL Baso # (Auto) (0.00-0.20) K/uL Immature Gran # (Auto) (0.01-0.20) K/uL PT (9.0-12.0) Seconds INR (0.9-1.1) APTT (21-31) Seconds PTT Ratio Sodium (136-145) mmol/L Potassium (3.5-5.1) mmol/L Chloride (98-107) mmol/L Carbon Dioxide (21-32) mmol/L Anion Gap (3-11) BUN (6-23) mg/dl Creatinine (0.6-1.4) mg/dl Est Cr Clr Drug Dosing ml/min Est GFR ( Amer) ml/min Est GFR (Non-Af Amer) ml/min BUN/Creatinine Ratio (10-20) Glucose (70-99(Fasting)) mg/dl Lactate (0.4-2.0) mmol/L Calcium (8.6-10.3) mg/dl Total Bilirubin (0.2-1.0) mg/dl AST (13-39) U/L ALT (7-52) U/L Alkaline Phosphatase (34-104) U/L Ammonia 59.0 (18-72) umol/L Total Protein (6.0-8.3) gm/dl Albumin (3.4-5.0) gm/dl Globulin (2.5-4.0) gm/dl Albumin/Globulin Ratio (0.9-2) Lipase (11-82) U/L Procalcitonin (0-0.5) ng/ml Blood Type Antibody Screen Diagnostic Findings Abdomen/Pelvis CT 10/24/23 07:13 CT OF THE ABDOMEN AND PELVIS WITH CONTRAST CLINICAL HISTORY: Abdominal pain and vomiting. Hernia. COMPARISON STUDY: CT of the abdomen and pelvis August 26, 2023. TECHNIQUE: Following IV administration of 90 mL of Optiray, axial images of the abdomen and pelvis were obtained from the lung bases to the proximal femurs. Images were reviewed in the axial, sagittal, and coronal planes. IV contrast was administered without complication. Automated exposure control was utilized for the study. A dose lowering technique was utilized adhering to the principles of ALARA. CT DOSE: 1704.4 mGy.cm FINDINGS: Lung bases are unremarkable. No pneumatosis, free air or portal venous gas is present. Paraesophageal varices are noted. Large abdominal varices are again noted. Marked splenomegaly is unchanged. Spleen measures 22 cm in craniocaudal dimension. No perisplenic fluid is present. There is hepatic steatosis. Recanalized paraumbilical vein is noted. No hepatic lesions are identified on portal venous phase exam. There is no biliary or pancreatic ductal dilatation. Low-attenuation left renal lesions favor cysts. There is no hydronephrosis. Adrenal glands and pancreas are unremarkable. The appendix is normal. An umbilical hernia contains a loop of small bowel and results in a small bowel obstruction. The small bowel proximal to the hernia is moderately dilated and fluid-filled. There is a small amount of fluid within the hernia sac . The small bowel distal to the hernia sac is decompressed. There is trace ascites within the pelvis. No evidence for a large bowel obstruction. Major vasculature is patent. The main, left and right portal veins are patent. There is mild gastric wall thickening. IMPRESSION: 1. Small bowel obstruction due to a loop of small bowel within an umbilical hernia. Small bowel proximal to the hernia sac is moderately dilated and fluid- filled and small bowel distal to the hernia is decompressed. Small amount of associated ascites. 2. Evidence for portal hypertension with marked splenomegaly and extensive varices formation, similar to prior exam. Hepatic steatosis. 3. Mild gastric wall thickening thickening. This may represent gastritis. ACT 112: Negative or not required by law. Electronically signed by: Justin Barron M.D. 10/24/2023 8:15 AM Medications Administered Sodium Chloride (Nss) 1,000 mls @ 125 mls/hr IV .Q8H FREEDOM Stop: 11/23/23 08:44 Last Admin: 10/24/23 08:42 Dose: 125 mls/hr Documented By: LETICIA Discontinued Medications Bupivacaine HCl/Epinephrine Bitart (Bupivacaine/Epinephrine 0.5% Mpf 1:200,000 30 Ml Vial) Confirm Administered Dose 30 ml .ROUTE .STK-MED ONE Stop: 10/24/23 07:55 Last Admin: 10/24/23 08:42 Dose: Not Given Documented By: LETICIA Pantoprazole Sodium 40 mg/ (Syringe) 10 mls @ 5 mls/min IV NOW ONE Stop: 10/24/23 08:46 Last Admin: 10/24/23 09:21 Dose: 5 mls/min Documented By: LETICIA Ioversol (Optiray 320 100ml) 94 ml IV ONCE ONE Stop: 10/24/23 07:51 Last Admin: 10/24/23 07:50 Dose: 94 ml Documented By: ABBE Ondansetron HCl (Ondansetron Inj 2 Mg/Ml 2 Ml Vial) 4 mg IV NOW STA Stop: 10/24/23 07:43 Last Admin: 10/24/23 07:44 Dose: 4 mg Documented By: LETICIA Ondansetron HCl (Ondansetron Inj 2 Mg/Ml 2 Ml Vial) Confirm Administered Dose 4 mg .ROUTE .STK-MED ONE Stop: 10/24/23 07:44 Last Admin: 10/24/23 07:44 Dose: Not Given Documented By: LETICIA Supervising Physician Co-Signing Physician Notes 53-year-old male with PMH of alpha-1 antitrypsin deficiency, fatty liver disease, splenomegaly, esophageal varices, portal hypertension, chronic pancytopenia, HTN, vitamin D deficiency who has recurrent umbilical hernia/chronic umbilical hernia that he is able to reduce at home presented with inability to reduce umbilical hernia for more than 15 hours associated with abdominal pain/nausea/vomiting and noted to have small bowel obstruction due to loop of small bowel within an umbilical hernia on CT scan at presentation. ED team initially reached out to general surgery who recommended transfer given patient's comorbidities. General surgery evaluated him at bedside and was able to reduce the hernia. They wanted patient be under observation for the time being and wanted diet be started after patient begins passing flatus. Kerlix with abdominal binder was applied in the ED and recommended to keep in place while getting out of bed. Labs reviewed, fairly WNL at his baseline. Small bowel obstruction due to small bowel with an umbilical hernia: Reduced by general surgery at bedside. N.p.o., start liquid diet once patient starts moving flatus, IV fluid NSS at 65 ml/hr, observe overnight. Patient currently reports resolution of his abdominal pain. If with any new abdominal pain, reoccurrence of hernia, black or blood in stool, recall general surgery for further recommendations. Increased blood lactic acid level: LA 2.2 uptrended to 2.7. likely 2/2 N,V preceding sbo. w/ ivf and sbo reduced, expect it to improve. trend LA until downtrending or normalized. Other chronic medical conditions: Continue with/resume home meds as when able. On exam: GENERAL: Alert and oriented x3. NAD, on RA. HEENT: No pallor, no icterus. Pupils equal, round and reactive to light. Oral mucosa moist. NECK: No JVD, no neck masses. HEART: S1 and S2 heard. Regular rate and rhythm. No murmur, no gallop. RESPIRATORY SYSTEM: Normal AP diameter. No accessory muscle use. No wheezing, no crackles. ABDOMEN: Soft, decreased bowel sounds, nontender, no distention. abd binder in place. CENTRAL NERVOUS SYSTEM: No facial droop. Speech is clear. Obeys simple commands. Moves extremities. EXTREMITIES: No edema, no erythema seen. ble chronic skin changes. I have seen and examined the patient and have discussed the case with the provider above. I agree with the assessment and plan as stated. (2) Cirrhosis Ascites presence: with ascites Hepatic cirrhosis type: unspecified hepatic cirrhosis Qualified Code(s): K74.60 - Unspecified cirrhosis of liver; R18.8 - Other ascites (4) HTN (hypertension) Hypertension type: unspecified Qualified Code(s): I10 - Essential (primary) hypertension
[2023-10-24] MEDS ORDERED: ONDANSETRON INJ 2 MG/ML 2 ML VIAL IV PRN (11:51)
[2023-10-24 12:11] LABS: iSTAT Creatinine 1.2 mg/dl (0.6-1.3); iSTAT Hemoglobin 13.3 g/dl (14.0-18.0); iSTAT Ionized Calcium 1.22 mmol/l (1.12-1.32); iSTAT Potassium 4.4 mmol/L (3.3-5.0)
[2023-10-24 14:31] LABS: Appearance Urine Clear (Clear); Bacteria Urine Automated None Seen (None Seen); Bilirubin Urine 1+ (Negative); Blood Urine Negative (Negative); Cast Urine Automated 0-2 /lpf (0-2); Color Urine Orange; Epithelial Cell Urine Auto 0-2 /hpf (0-2); Glucose Urine UA Negative (Negative); Ketones Urine Trace (Negative); Leukocyte Esterase Urine Trace (Negative); Nitrite Urine Negative (Negative); Protein Urine Trace (Negative); RBC Urine Automated 0-2 /hpf (0-2); Specific Gravity Urine > 1.045 (1.000-1.030); Urobilinogen Urine Negative (Negative); WBC Urine Automated 0-5 /hpf (0-5)
[2023-10-24 20:29] VITALS: RESP 18
[2023-10-24] MEDS: PANTOprazole 40 MG in SYRINGE 0 ML IV SCH (21:15)
[2023-10-24] MEDS: diphenhydrAMINE Capsule 25 MG CAP PO ONE (21:15)
[2023-10-25 05:00] LABS: Basophils # (auto) 0.02 K/uL (0.00-0.20); Basophils % (auto) 0.8 %; Eosinophils # (auto) 0.12 K/uL (0.00-0.50); Hematocrit (blood only) 32.6 % (42.0-52.0); Hemoglobin 11.3 g/dl (14.0-18.0); Immature Granulocytes # (auto) 0.01 K/uL (0.01-0.20); Immature Granulocytes % (auto) 0.4 %; Lymphocytes # (auto) 0.64 K/uL (1.20-3.40); Lymphocytes % (auto) 26.6 %; Mean Corpuscular Hemoglobin 32.8 pg (25.0-34.0); Mean Corpuscular Hgb Conc 34.7 g/dL (32.0-36.0); Mean Corpuscular Volume 94.5 fL (80.0-100.0); Mean Platelet Volume 12.9 fL (9.4-12.4); Monocytes # (auto) 0.22 K/uL (0.11-0.59); Monocytes % (auto) 9.1 %; Neutrophils % (auto) 58.1 %; Platelet Count 31 K/uL (130-400); RDW Standard Deviation 57.8 fL (36.4-46.3); Red Blood Count 3.45 M/uL (4.70-6.10); White Blood Count 2.41 K/ul (4.8-10.8)
[2023-10-25 05:25] LABS: Albumin Level 2.6 gm/dl (3.4-5.0); BUN Creatinine Ratio 17.3 (10-20); Bilirubin,Total 4.1 mg/dl (0.2-1.0); Calcium 7.9 mg/dl (8.6-10.3); Creatinine Clr Calc Pharmacy 115.3 ml/min; Est GFR (African American) 93.2 ml/min; Est GFR (Non-African American) 80.5 ml/min; Magnesium 1.5 mg/dl (1.7-2.4); Potassium 3.6 mmol/L (3.5-5.1); Total Protein 4.3 gm/dl (6.0-8.3)
[2023-10-25 05:29] LABS: INR 1.7 (0.9-1.1); Prothrombin Time 17.6 Seconds (9.0-12.0)
[2023-10-25] MEDS: nadoloL 40 MG TAB PO SCH (08:56)
[2023-10-25 11:21] VITALS: TEMP 98.1; O2SAT 96
--- NOTE | 2023-10-25 13:51 | Discharge Summary ---
Date of Service October 25, 2023 Admission HPI Per Admitting Provider This is a 53 y/o male with cirrhosis due to fatty liver disease, with esophageal/gastric varices, chronic thrombocytopenia, portal hypertension, HTN, vitamin D deficiency, and other history as outlined who presents to the ED with abdominal pain and nausea. Pt has a known umbilical hernia for which he previously saw general surgery to discuss possible repair. Outpatient general surgery note from 2019 was reviewed - surgical repair was deferred due to increased risk of complications from underlying cirrhosis and thrombocytopenia and lack of symptoms. Pt reports frequently needing to reduce the hernia at home, which he is typically able to do without difficulty. However, the day before, he wasn't feeling well and the hernia was present when he awoke. He attempted multiple times to reduce the hernia at home the day before but was unable to. Continued pain and nausea all day but declined to go to the ED. Around 3 am on day of presentation, he developed multiple episodes of emesis and was still unable to reduce the hernia so came to the ED for evaluation. He denies fevers, chills, sweats, chest pain, dyspnea. Baseline bowel pattern is multiple loose stools daily - not using lactulose (told to use if <3 BM/day). No blood in stools. He notes decreased urine output and frequency but also reports that he has not been eating or drinking much since Tuesday when he was in his usual state of health. He is starting the transplant evaluation process at [facility] [place]. Admission Exam Per Admitting Provider General: awake, alert, NAD, Ox3 HEENT: trace scleral icterus, slightly dry oral mucosa Neck: trachea midline Heart: RRR Lungs: CTA bilaterally Abdomen: soft, hypoactive BS, non-tender Extremities: trace LE edema with chronic stasis changes Neurologic: no confusion or dysarthria, moving all extremities Principal Diagnosis Incarcerated Umbilical hernia Now reduced Discharge Exam Constitutional + well hydrated; no acute distress Eyes PERRL, conjunctivae normal, anicteric sclerae ENMT external ear and nose normal, oropharynx normal Respiratory normal respiratory effort, lungs clear to auscultation Cardiovascular Rate/Rhythm: regular rate and regular rhythm Gastrointestinal (Abdomen) normal bowel sounds, soft, nontender, no hepatosplenomegaly Abdominal binder in place Musculoskeletal +pedal edema Neurologic PERRL, EOMI, accommodation nl, no face palsy, no dysarthria Psychiatric A+Ox3, euthymic affect Discharge Data Allergies Allergy/AdvReac Type Severity Reaction Status Date / Time amoxicillin Allergy Intermediate RASH Verified 09/22/23 14:27 adhesive tape Allergy Unknown "may have Unverified 10/24/23 09:10 allergy to tape; had hives" Consultations 10/24/23 10:02 ED Decision to Admit Stat Procedures Performed Operation Date: 10/24/23 10:50 <No data on this case meets the specified criteria> Ordered Studies 10/24/23 07:13 CT abd pelvis IV con only Stat Hospital Course (1) Umbilical hernia with obstruction: 53 y/o male with cirrhosis due to fatty liver disease, with esophageal/gastric varices, chronic thrombocytopenia, portal hypertension, HTN, vitamin D deficiency, and other history as outlined who presents to the ED with abdominal pain and nausea and inability to reduce known umbilical hernia. He had been unable to have this repaired electively due to thrombocytopenia and increased risk for complications with known cirrhosis. Work-up in the ED included a CT that showed SBO due to loop of small bowel within an umbilical hernia, SB proximal to hernia sac moderately dilated and fluid filled with SB distal to hernia decompressed. Initially, the patient was to be transferred to [facility] for emergent surgical intervention but Surgery was able to successfully reduce the hernia in the ED so patient was referred for admission for observation. Diet advanced with good tolerance Patient advised to use abdominal binder prn as recommended by Surgeon (2) Cirrhosis: Unclear etiology but likely secondary to fatty liver disease, ?alpha-1 antitrypsin deficiency in the chart but pt does not recall ever being diagnosed with this previously. Continue outpatient regimen as able Continue scheduled f/u with transplant clinic later this month (3) Thrombocytopenia: Chronic issue, pt did receive one unit of platelets on day of admission in anticipation of potential OR. (4) HTN (hypertension): Currently BP is stable. Continue home med Total Time Total Time Spent Total Time Spent (In Minutes): 35 Total Time Includes: Examination of the Patient, Discharge Planning and Medication Reconciliation Discharge Plan Discharge Items Patient Disposition: Home - Self-Care Reason For Visit: INCARCERATED UMBILICAL HERNA Discharge Diagnosis: Incarcerated Umbilical hernia Now reduced Activity: Resume your previous activity Non-emergency contact: Primary Care Provider Call non-emergency contact if: you have any medication questions Follow-up/Referrals: Suzanne Alex, GUSTAVO [Primary Care Provider] - Mikey Blood MD [Outside Practitioners] - 11/01/23 10:20 am Diet: Heart Healthy and Low Sodium (2gm) Addtl Attending Provider Instructions: Mr Marisol Pantoja presented to the hospital with abdominal pain and found to have incarcerated umbilical hernia. This was successfully reduced by the surgeon without needing surgery. Please use abdominal binder as instructed by Surgeon. Please ensure follow up with Family Doctor. It was a pleasure taking care of you Pending Studies at Discharge: No Stand-Alone Forms: My [facility], Smoking Cessation Medications and DC Order Prescriptions: Continued acetaminophen [Tylenol Extra Strength] 500 mg Tablet 1,000 mg PO Q6H PRN (Reason: Pain) nadolol 20 mg tablet 20 mg PO DAILY omeprazole 20 mg capsule,delayed release(DR/EC) 20 mg PO QAM ammonium lactate 12 % cream 1 applic TOPICAL BID PRN (Reason: Other) lisinopril-hydrochlorothiazide 20-12.5 mg tablet 1 tab PO DAILY ferrous sulfate 325 mg (65 mg iron) Tablet,Delayed Release (Dr/Ec) 325 mg PO QAM Qty: 30 0RF multivitamin Tablet 1 tab PO DAILY lactulose 10 gram/15 mL solution 30 ml PO TID PRN (Reason: Other) Vitamin D3 1 cap PO DAILY copper 8 mg PO DAILY Discharge Orders: Discharge Order (Routine); Ordered 10/25/23 Ordered By: Abbey Tanner Admission Data Admit Date/Time: 10/24/23 11:02 Attending Provider: Abbey Tanner I. Admit Provider: Adriana Boo Primary Care Provider: Suzanne Alex Other Providers: Adriana Boo Other Interventions: Discharge Summary Assessment (RN) Last Done: 10/25/23 13:53
[2023-10-25 13:54] VITALS: BP 116/62
[2023-10-25 14:09] VITALS: PULSE 67
== END 2023-10-25 15:20 | disposition home or self-care (01) ==
LOC: ED 06:45 → 2W 11:02 → SUATTDRO 11:02 → INTOOBSV 11:02 → 2W 11:29

== ENCOUNTER 2023-11-02 14:24 | Inpatient (IN) ==
--- NOTE | 2023-11-02 14:55 | Emergency Department Note ---
Impression & Plan Incarcerated umbilical hernia, Cirrhosis, Portal hypertension, Small bowel obstruction ED Provider Note NAME: MARLEN MARISCAL AGE: 53 SEX: M : 1970 ARRIVES VIA: Walk-In INFORMANT: Patient ED PROVIDER(S): Sp Potter DO CHIEF COMPLAINT: Abdominal pain HPI: Patient is a 53-year-old male who presents ER with a past medical history of hypertension, thrombocytopenia, cirrhosis secondary to Harris for periumbilical abdominal pain. He notes he has umbilical hernia and has been unable to reduce this since around 11:00 when he started having pain. He denies any nausea or vomiting. Normal bowel movements. No dysuria, urgency, or frequency. No headache or change in vision. No chest pain or shortness of breath. No other exacerbating or remitting factors. ADDITIONAL HISTORY OBTAINED: Per HPI Chronic Medical/Social Conditions Affecting Care: Per HPI PAST MEDICAL HISTORY:See Below PAST SURGICAL HISTORY:See Below FAMILY HISTORY:See Below SOCIAL HISTORY:See Below HOME MEDICATIONS:See Below ALLERGIES:See Below VITALS:See Below PHYSICAL EXAMINATION: GENERAL: Sitting up in bed, alert, well appearing, well nourished, no distress, non-toxic EYE EXAM: normal conjunctiva. PERRL and EOM's grossly intact. OROPHARYNX: mucous membranes are moist LUNGS: Clear to auscultation. Normal chest wall mechanics HEART: no murmurs, S1 normal and S2 normal ABDOMEN: abdomen soft, tenderness around the umbilical hernia which is not reducible, normo-active bowel sounds, no masses, no rebound or guarding. UPPER EXTREMITIES: upper extremities are grossly normal. LOWER EXTREMITIES: No pitting edema. NEURO EXAM: Normal sensorium, cranial nerves II-XII grossly intact, normal speech, no gross weakness of arms, no gross weakness of legs. MEDICAL DECISION MAKING: Patient is a 53-year-old male who presents ER with a past medical history of cirrhosis, portal hypertension, splenomegaly and hypertension for abdominal pain and unable to reduce his umbilical hernia. I attempted multiple times at bedside and was unsuccessful. IV was established medicos obtained. He was given IV morphine Zofran and fluids. Labs show a leukopenia at 1.9, anemia at 12 and a thrombocytopenia 28. BMP is fairly unremarkable. T. bili was slightly up at 3.3 which is improved from previous. Lipase 90. Patient was typed and screened. CT abdomen pelvis confirms bowel obstruction secondary to incarcerated hernia. Prior to the official read I contacted general surgery and they presented at bedside. They are eventually able to reduce this. Recommended admission and observation overnight. Discussed case with the hospitalist for further evaluation. Consults/Care Managements Discussions: Per MDM Triage Nursing notes reviewed. Limited review of prior medical records performed Vital Signs: reviewed and remarkable for HTN Differential diagnosis: Differential diagnoses includes but is not limited to gastritis, peptic ulcer disease, GERD, gallbladder disease, pancreatitis, small bowel obstruction, appendicitis, diverticulitis, hernia, urinary tract infection, torsion, perforation, trauma, infectious. ER treatment provided: See below Diagnostics interpreted by me include EKG and cardiac monitoring as listed below: -Cardiac Monitoring: An order was placed for continuous cardiac monitoring. The monitor shows a rate of 70 with sinus rhythm. -ECG: none -Laboratory studies:Interpreted by me as stated above in MDM and shown below. Imaging studies: Xrays: As interpreted by me:none CTs show: CT abdomen pelvis per my preliminary read showed what appeared to be incarcerated hernia CT abdomen pelvis per radiology as described above Procedures:none Critical Care: None Past Med/Surg History Problem List (Updated 11/02/23 @ 18:35 by Sp Potter DO) Small bowel obstruction (Acute) Incarcerated umbilical hernia (Acute) Umbilical hernia with obstruction (Acute) Encounter for pre-operative examination Edema Splenomegaly Esophageal varices Portal hypertension (Acute) Cirrhosis (Acute) Neutropenia (Acute) Umbilical hernia Thrombocytopenia (Acute) HTN (hypertension) Medical History Mild tricuspid regurgitation Mild mitral regurgitation Pancytopenia Ventral hernia Surgical History History of colonoscopy History of esophagogastroduodenoscopy (EGD) Family History Grandfather (Paternal) Cancer Social History Smoking Status: Never smoker Hx Alcohol Use: No Hx Substance Use: No Preferred Language: Bengali Communication Ability: Effective Ventilation Equipment Tender Required: No Beliefs That Will Affect Care: None Current Living Situation: Spouse and Family Current Living Situation Comment: patient lives with girlfriend Feels Safe at Home: Yes Assistive Devices: None Allergies Allergies Allergy/AdvReac Type Severity Reaction Status Date / Time amoxicillin Allergy Intermediate RASH Verified 11/02/23 16:25 adhesive tape Allergy Unknown "may have Unverified 11/02/23 16:25 allergy to tape; had hives" Home Meds Home Medications Medication Instructions Recorded Confirmed acetaminophen 500 mg tablet 1,000 mg PO Q6H PRN Pain 09/10/22 11/02/23 (Tylenol Extra Strength) ammonium lactate 12 % topical cream 1 applic topical BID PRN Other 09/10/22 11/02/23 nadolol 20 mg tablet 20 mg PO QAM 09/10/22 11/02/23 omeprazole 20 mg capsule,delayed 20 mg PO QAM 09/10/22 11/02/23 release lisinopril 20 1 tab PO QAM 08/26/23 11/02/23 mg-hydrochlorothiazide 12.5 mg tablet copper 8 mg PO QAM 10/24/23 11/02/23 lactulose 10 gram/15 mL oral 30 ml PO TID PRN Other 10/24/23 11/02/23 solution multivitamin 1 tab PO QAM 10/24/23 11/02/23 cholecalciferol (vitamin D3) 25 25 mcg PO QAM 11/02/23 11/02/23 mcg (1,000 unit) tablet (Vitamin D3) Previous Rx's Medication Instructions Recorded ferrous sulfate 325 mg (65 mg 325 mg PO QAM #30 tabs 08/30/23 iron) tablet,delayed release Results & Data (ED) Vital Signs Vital Signs - 24 hr 11/02/23 14:40 11/02/23 15:02 11/02/23 15:02 Temperature 36.6 C 36.5 C Temperature Source Temporal Artery Scan Oral Pulse Rate 66 63 Pulse Rate [Apical] 64 Pulse Rhythm Regular Pulse Rhythm [Apical] Regular Pulse Strength [Apical] Normal Respiratory Rate 18 20 20 Respiratory Effort / Characteristics Non-Labored Spontaneous Non-Labored Spontaneous Respiratory Depth Normal Normal Respiratory Pattern Regular Regular Blood Pressure 144/83 H Blood Pressure [Left Arm] 119/65 Blood Pressure Mean 103 Blood Pressure Mean [Left Arm] 83 Blood Pressure Position [Left Arm] Semi-fowlers Pulse Oximetry 98 98 95 Oxygen Delivery Method Room Air Room Air Room Air Sepsis Recent Fever Within 48 Hours No Sepsis New/Unexplained Change in Mental Status N/A Sepsis Action Taken by Nursing No Action Required 11/02/23 15:43 Temperature Temperature Source Pulse Rate 67 Pulse Rate [Apical] Pulse Rhythm Pulse Rhythm [Apical] Pulse Strength [Apical] Respiratory Rate Respiratory Effort / Characteristics Respiratory Depth Respiratory Pattern Blood Pressure Blood Pressure [Left Arm] Blood Pressure Mean Blood Pressure Mean [Left Arm] Blood Pressure Position [Left Arm] Pulse Oximetry Oxygen Delivery Method Sepsis Recent Fever Within 48 Hours Sepsis New/Unexplained Change in Mental Status Sepsis Action Taken by Nursing Laboratory Data 11/02/23 14:55 11/02/23 14:55 Lab Results 11/02/23 11/02/23 11/02/23 Range/Units 14:55 15:03 16:23 WBC 1.92 L (4.8-10.8) K/ul RBC 3.96 L (4.70-6.10) M/uL Hgb 12.9 L (14.0-18.0) g/dl POC Hgb 11.9 L (14.0-18.0) g/dl Hct 38.0 L (42.0-52.0) % POC Hct 35 L (42-52) % MCV 96.0 (80.0-100.0) fL MCH 32.6 (25.0-34.0) pg MCHC 33.9 (32.0-36.0) g/dL RDW Std Deviation 59.9 H (36.4-46.3) fL RDW Coeff of Eric 17.0 H (11.5-14.5) % Plt Count 28 L* (130-400) K/uL MPV 12.0 (9.4-12.4) fL Immature Gran % (Auto) 1.0 % Neut % (Auto) 57.9 % Lymph % (Auto) 25.5 % Cottle % (Auto) 7.8 % Eos % (Auto) 5.7 % Baso % (Auto) 2.1 % Neut # (Auto) 1.11 L (1.40-6.50) K/uL Lymph # (Auto) 0.49 L (1.20-3.40) K/uL Cottle # (Auto) 0.15 (0.11-0.59) K/uL Eos # (Auto) 0.11 (0.00-0.50) K/uL Baso # (Auto) 0.04 (0.00-0.20) K/uL Immature Gran # (Auto) 0.02 (0.01-0.20) K/uL Platelet Estimate Decreased L (Normal) Polychromasia 1+ Tear Drop Cells 1+ POC Sodium 142 (135-144) mmol/L Sodium 141 (136-145) mmol/L POC Potassium 4.1 (3.3-5.0) mmol/L Potassium 4.2 (3.5-5.1) mmol/L POC Chloride 107 (101-112) mmol/L Chloride 111 H (98-107) mmol/L Carbon Dioxide 28 (21-32) mmol/L POC Total CO2 23 L (24-31) mmol/L Anion Gap 2 L (3-11) POC Anion Gap 17.0 (16-25) mmol/L POC BUN 12 (7-18) mg/dl BUN 13 (6-23) mg/dl Creatinine 1.03 (0.6-1.4) mg/dl POC Creatinine 1.2 (0.6-1.3) mg/dl Est Cr Clr Drug Dosing 117.7 ml/min Est GFR ( Amer) 94.3 ml/min Est GFR (Non-Af Amer) 81.4 ml/min BUN/Creatinine Ratio 12.6 (10-20) Glucose 90 (70-99(Fasting)) mg/dl POC Glucose (other) 88 (70-99) mg/dl Lactate 1.1 (0.4-2.0) mmol/L Calcium 8.8 (8.6-10.3) mg/dl POC Ioniz Calcium Eligio 1.26 (1.12-1.32) mmol/l Total Bilirubin 3.3 H (0.2-1.0) mg/dl AST 53 H (13-39) U/L ALT 34 (7-52) U/L Alkaline Phosphatase 79 (34-104) U/L Total Protein 5.3 L (6.0-8.3) gm/dl Albumin 3.2 L (3.4-5.0) gm/dl Globulin 2.1 L (2.5-4.0) gm/dl Albumin/Globulin Ratio 1.5 (0.9-2) Lipase 95 H (11-82) U/L Blood Type O Negative Antibody Screen NEGATIVE Administered Medications Discontinued Medications Sodium Chloride (Nss) 1,000 mls @ 999 mls/hr IV .Q1H1M ONE Stop: 11/02/23 16:59 Last Admin: 11/02/23 16:39 Dose: 999 mls/hr Documented By: [facility] [place] Ioversol (Optiray 320 100ml) 94 ml IV ONCE ONE Stop: 11/02/23 15:19 Last Admin: 11/02/23 15:13 Dose: 94 ml Documented By: BRMiller Morphine Sulfate (Morphine Sulfate 2 Mg/Ml Carp) 2 mg IV NOW STA Stop: 11/02/23 16:03 Last Admin: 11/02/23 16:40 Dose: 2 mg Documented By: [facility] [place] Ondansetron HCl (Ondansetron Inj 2 Mg/Ml 2 Ml Vial) 4 mg IV NOW STA Stop: 11/02/23 16:03 Last Admin: 11/02/23 16:39 Dose: 4 mg Documented By: [facility] [place] Imaging Data Radiologist's Impression: Abdomen/Pelvis CT 11/02/23 14:53 CT SCAN OF THE ABDOMEN AND PELVIS WITH IV CONTRAST CLINICAL HISTORY: Generalized abdominal pain. COMPARISON STUDY: Abdominal CT dated 10/24/2023. TECHNIQUE: Following the IV administration of 94 cc of Optiray 320, CT scan of the abdomen and pelvis is performed from the lung bases to the proximal femora. Images are reviewed in the axial, sagittal, and coronal planes. IV contrast was administered without complication. A dose lowering technique was utilized adhering to the principles of ALARA. CT DOSE: 1676.25 mGy.cm FINDINGS: Lung bases: The heart is mildly enlarged and without pericardial effusion. There is coronary artery atherosclerosis. The lung bases are clear noting bibasilar scarring/atelectasis. There is a small hiatal hernia. Esophageal varices are noted. Liver: The contrast-enhanced liver is cirrhotic in morphology and heterogeneous in attenuation. There is nodularity of the hepatic surface contour. There is no intrahepatic biliary ductal dilatation. The hepatic veins and portal veins are patent. There are perisplenic and perigastric varices with evidence of a splenorenal shunt. There is recanalization of the periumbilical vein. Caput medusae are observed. Gallbladder: The gallbladder is contracted. The wall appears thickened and edematous, likely related to adjacent hepatocellular disease. Spleen: The spleen is markedly enlarged, measuring 24.6 cm in length. Pancreas: Unremarkable. Adrenal glands: Unremarkable. Kidneys: The contrast enhanced kidneys are normal in size and without hydronephrosis. The kidneys enhance symmetrically. There are 2 left renal cysts which measure up to 1.5 cm. Abdominal vasculature: The abdominal aorta is normal in course and caliber. Bowel: A loop of small bowel is incarcerated within an umbilical hernia. The upstream small bowel is dilated and fluid-filled measuring up to 4.8 cm diameter. The distal small bowel is decompressed, and findings are consistent with a high-grade obstruction. No thick-walled bowel loops are identified. There is no pneumatosis intestinalis or portal venous gas. Mild fecal retention is seen throughout the colon. The appendix is well-visualized and normal. Peritoneum: No intraperitoneal free air is seen. There is trace pelvic ascites. There is a large helical hernia which contains fat, bowel, and fluid. See above. Lymphadenopathy: None. Pelvic viscera: The bladder, prostate, and seminal vesicles are normal as visualized. Skeletal structures: No lytic or blastic lesions are seen. Sclerotic change is noted in the sacroiliac joints. IMPRESSION: 1. High-grade small bowel obstruction secondary to an incarcerated loop of small bowel contained within an umbilical hernia. 2. No intraperitoneal free air is seen. No focally thick-walled bowel loops are identified, and there is no pneumatosis intestinalis or portal venous gas. 3. Trace pelvic ascites. 4. Cirrhotic liver morphology. 5. There are stigmata of portal hypertension including marked splenomegaly, esophageal varices, upper abdominal varices, a splenorenal shunt, recanalization of the periumbilical vein, and caput medusae. 6. Additional findings as above. ACT 112: Negative or not required by law. Electronically signed by: Ross Rae M.D. 11/02/2023 3:58 PM Discharge Plan Visit Data Chief Complaint: Abdominal Pain Stated Complaint: HERNIA IS BACK, BELLY BUTTON OUT ED Provider: Sp Potter Discharge Problem: Incarcerated umbilical hernia, Cirrhosis, Portal hypertension, Small bowel obstruction Discharge Instructions Interventions: ED Discharge Assessment Last Done: 11/02/23 18:25 Discharge Problem: Cirrhosis Qualifiers: Hepatic cirrhosis type: unspecified hepatic cirrhosis Ascites presence: u nspecified Qualified Code(s): K74.60 - Unspecified cirrhosis of liver
[2023-11-02] MEDS: OPTIRAY 320 100ml IV ONE (15:13)
[2023-11-02 15:15] LABS: iSTAT Creatinine 1.2 mg/dl (0.6-1.3); iSTAT Hemoglobin 11.9 g/dl (14.0-18.0); iSTAT Ionized Calcium 1.26 mmol/l (1.12-1.32); iSTAT Potassium 4.1 mmol/L (3.3-5.0)
[2023-11-02 15:43] LABS: Albumin Globulin Ratio 1.5 (0.9-2); Albumin Level 3.2 gm/dl (3.4-5.0); BUN Creatinine Ratio 12.6 (10-20); Bilirubin,Total 3.3 mg/dl (0.2-1.0); Calcium 8.8 mg/dl (8.6-10.3); Creatinine Clr Calc Pharmacy 117.7 ml/min; Est GFR (African American) 94.3 ml/min; Est GFR (Non-African American) 81.4 ml/min; Globulin 2.1 gm/dl (2.5-4.0); Potassium 4.2 mmol/L (3.5-5.1); Total Protein 5.3 gm/dl (6.0-8.3)
[2023-11-02 15:50] LABS: Basophils # (auto) 0.04 K/uL (0.00-0.20); Basophils % (auto) 2.1 %; Eosinophils # (auto) 0.11 K/uL (0.00-0.50); Eosinophils % (auto) 5.7 %; Hemoglobin 12.9 g/dl (14.0-18.0); Immature Granulocytes # (auto) 0.02 K/uL (0.01-0.20); Lymphocytes # (auto) 0.49 K/uL (1.20-3.40); Lymphocytes % (auto) 25.5 %; Mean Corpuscular Hemoglobin 32.6 pg (25.0-34.0); Mean Corpuscular Hgb Conc 33.9 g/dL (32.0-36.0); Monocytes # (auto) 0.15 K/uL (0.11-0.59); Monocytes % (auto) 7.8 %; Neutrophils # (auto) 1.11 K/uL (1.40-6.50); Neutrophils % (auto) 57.9 %; Platelet Count 28 K/uL (130-400); Platelet Estimate Decreased (Normal); Polychromasia 1+; RDW Standard Deviation 59.9 fL (36.4-46.3); Red Blood Count 3.96 M/uL (4.70-6.10); Tear Drop Cells 1+; White Blood Count 1.92 K/ul (4.8-10.8)
--- NOTE | 2023-11-02 16:00 | CT Scan Report ---
CT SCAN OF THE ABDOMEN AND PELVIS WITH IV CONTRAST CLINICAL HISTORY: Generalized abdominal pain. COMPARISON STUDY: Abdominal CT dated 10/24/2023. TECHNIQUE: Following the IV administration of 94 cc of Optiray 320, CT scan of the abdomen and pelvi s is performed from the lung bases to the proximal femora. Images are reviewed in the axial, sagittal , and coronal planes. IV contrast was administered without complication. A dose lowering technique wa s utilized adhering to the principles of ALARA. CT DOSE: 1676.25 mGy.cm FINDINGS: Lung bases: The heart is mildly enlarged and without pericardial effusion. There is coronary artery a therosclerosis. The lung bases are clear noting bibasilar scarring/atelectasis. There is a small hiat al hernia. Esophageal varices are noted. Liver: The contrast-enhanced liver is cirrhotic in morphology and heterogeneous in attenuation. There is nodularity of the hepatic surface contour. There is no intrahepatic biliary ductal dilatation. Th e hepatic veins and portal veins are patent. There are perisplenic and perigastric varices with evide nce of a splenorenal shunt. There is recanalization of the periumbilical vein. Caput medusae are obse rved. Gallbladder: The gallbladder is contracted. The wall appears thickened and edematous, likely related to adjacent hepatocellular disease. Spleen: The spleen is markedly enlarged, measuring 24.6 cm in length. Pancreas: Unremarkable. Adrenal glands: Unremarkable. Kidneys: The contrast enhanced kidneys are normal in size and without hydronephrosis. The kidneys enh ance symmetrically. There are 2 left renal cysts which measure up to 1.5 cm. Abdominal vasculature: The abdominal aorta is normal in course and caliber. Bowel: A loop of small bowel is incarcerated within an umbilical hernia. The upstream small bowel is dilated and fluid-filled measuring up to 4.8 cm diameter. The distal small bowel is decompressed, and findings are consistent with a high-grade obstruction. No thick-walled bowel loops are identified. T here is no pneumatosis intestinalis or portal venous gas. Mild fecal retention is seen throughout the colon. The appendix is well-visualized and normal. Peritoneum: No intraperitoneal free air is seen. There is trace pelvic ascites. There is a large yoli selin hernia which contains fat, bowel, and fluid. See above. Lymphadenopathy: None. Pelvic viscera: The bladder, prostate, and seminal vesicles are normal as visualized. Skeletal structures: No lytic or blastic lesions are seen. Sclerotic change is noted in the sacroilia c joints. IMPRESSION: 1. High-grade small bowel obstruction secondary to an incarcerated loop of small bowel contained with in an umbilical hernia. 2. No intraperitoneal free air is seen. No focally thick-walled bowel loops are identified, and there is no pneumatosis intestinalis or portal venous gas. 3. Trace pelvic ascites. 4. Cirrhotic liver morphology. 5. There are stigmata of portal hypertension including marked splenomegaly, esophageal varices, upper abdominal varices, a splenorenal shunt, recanalization of the periumbilical vein, and caput medusae. 6. Additional findings as above. ACT 112: Negative or not required by law. Electronically signed by: Ross Rae M.D. 11/02/2023 3:58 PM
--- NOTE | 2023-11-02 16:28 | Surgery Consultation ---
Date of Consultation November 02, 2023 Assessment & Plan (1) Umbilical hernia with obstruction: (2) Esophageal varices: (3) Portal hypertension: (4) Cirrhosis: (5) Thrombocytopenia: Plan 53-year-old male with significant medical history of cirrhosis secondary to Harris with portal hypertension splenomegaly and esophageal varices presenting with incarcerated umbilical hernia containing small bowel resulting in a high-grade small bowel obstruction on CT scan. Hernia was able to be reduced in the emergency department. Given that this hernia has recurred and has been incarcerated a second time in 9 days he needs to have this hernia repaired however he needs to have this repaired at a tertiary center where multiple specialties are involved given his complex medical history. He has significant surgical risks. Would recommend admission to the hospital for observation given that the small bowel was incarcerated but now reduced. N.p.o. for bowel rest pain management as needed. Would recommend appliance of Kerlix to the umbilical hernia with Tex wrap and abdominal binder for compression. He will also need a good bowel regimen to prevent any constipation and straining to prevent recurrence of incarcerated hernia. I will work on getting a referral for the patient to hernia specialist at [facility] through our general surgery office tomorrow and update the patient. Dr. Brenner has seen and examined patient was able to reduce the hernia in the emergency department. History of Present Illness Reason for Consultation: Incarcerated umbilical hernia containing bowel Requesting Physician: Dr. Potter History of Present Illness Nasir is a 53-year-old male with a history of cirrhosis secondary to HARRIS, portal hypertension, esophageal varices, splenomegaly, thrombocytopenia, hypertension who presented to the ED today with abdominal pain and hernia that was unable to be reduced. No associated nausea or vomiting. No fevers or chills. Normal bowel movement this morning. He was just recently here on 10/23 in which she had incarcerated hernia causing a small bowel obstruction and there was discussion about [facility] to [place] given his medical comorbidities and high surgical risk however the hernia was able to be reduced. He states he was getting out of the shower and noticed the hernia was unable to reduce it. Allergies Allergy/AdvReac Type Severity Reaction Status Date / Time amoxicillin Allergy Intermediate RASH Verified 11/02/23 16:25 adhesive tape Allergy Unknown "may have Unverified 11/02/23 16:25 allergy to tape; had hives" Home Medications Medication Instructions Recorded Confirmed Type acetaminophen 500 mg tablet 1,000 mg PO Q6H PRN Pain 09/10/22 11/02/23 History (Tylenol Extra Strength) ammonium lactate 12 % topical cream 1 applic topical BID PRN Other 09/10/22 11/02/23 History nadolol 20 mg tablet 20 mg PO QAM 09/10/22 11/02/23 History omeprazole 20 mg capsule,delayed 20 mg PO QAM 09/10/22 11/02/23 History release lisinopril 20 1 tab PO DAILY 08/26/23 11/02/23 History mg-hydrochlorothiazide 12.5 mg tablet ferrous sulfate 325 mg (65 mg 325 mg PO QAM #30 tabs 08/30/23 11/02/23 Rx iron) tablet,delayed release copper 8 mg PO QAM 10/24/23 11/02/23 History lactulose 10 gram/15 mL oral 30 ml PO TID PRN Other 10/24/23 11/02/23 History solution multivitamin 1 tab PO QAM 10/24/23 11/02/23 History cholecalciferol (vitamin D3) 25 25 mcg PO QAM 11/02/23 11/02/23 History mcg (1,000 unit) tablet (Vitamin D3) Patient History Medical History Mild tricuspid regurgitation Mild mitral regurgitation Pancytopenia Ventral hernia Surgical History History of colonoscopy History of esophagogastroduodenoscopy (EGD) Family History Grandfather (Paternal) Cancer Social History Smoking Status: Never smoker Hx Alcohol Use: No Hx Substance Use: No Preferred Language: French Communication Ability: Effective Mat Worker Required: No Beliefs That Will Affect Care: None Current Living Situation: Spouse and Family Current Living Situation Comment: patient lives with girlfriend Feels Safe at Home: Yes Assistive Devices: None Review of Systems Review of Systems: All systems reviewed & are unremarkable except as noted in HPI & below Physical Exam Constitutional: WD/WN, vitals as above + obese and cooperative; no acute distress Respiratory: normal respiratory effort; no respiratory distress Gastrointestinal (Abdomen): Inspection/Auscultation: abdomen normal to inspection and + visible herniation (umbilical hernia, no overlying erythema); abdomen not distended Percussion/Palpation: + abdomen tender (at umbilical hernia) and abdomen soft; no guarding, abdomen not rigid and abdomen not firm Skin: no rashes, warm and dry Psychiatric: Orientation: alert and oriented x 3 Results & Data Vital Signs (Past 12 Hours) Vital Signs Temp Pulse Pulse Resp BP BP Pulse Ox 11/02/23 15:43 67 11/02/23 15:02 63 20 95 11/02/23 15:02 36.5 C 64 20 119/65 98 11/02/23 14:40 36.6 C 66 18 144/83 H 98 O2 Del Method 11/02/23 15:43 11/02/23 15:02 Room Air 11/02/23 15:02 Room Air 11/02/23 14:40 Room Air Laboratory Results 11/02/23 11/02/23 Range/Units 15:03 14:55 WBC 1.92 L (4.8-10.8) K/ul RBC 3.96 L (4.70-6.10) M/uL Hgb 12.9 L (14.0-18.0) g/dl POC Hgb 11.9 L (14.0-18.0) g/dl Hct 38.0 L (42.0-52.0) % POC Hct 35 L (42-52) % MCV 96.0 (80.0-100.0) fL MCH 32.6 (25.0-34.0) pg MCHC 33.9 (32.0-36.0) g/dL RDW Std Deviation 59.9 H (36.4-46.3) fL RDW Coeff of Eric 17.0 H (11.5-14.5) % Plt Count 28 L* (130-400) K/uL MPV 12.0 (9.4-12.4) fL Immature Gran % (Auto) 1.0 % Neut % (Auto) 57.9 % Lymph % (Auto) 25.5 % Becker % (Auto) 7.8 % Eos % (Auto) 5.7 % Baso % (Auto) 2.1 % Neut # (Auto) 1.11 L (1.40-6.50) K/uL Lymph # (Auto) 0.49 L (1.20-3.40) K/uL Becker # (Auto) 0.15 (0.11-0.59) K/uL Eos # (Auto) 0.11 (0.00-0.50) K/uL Baso # (Auto) 0.04 (0.00-0.20) K/uL Immature Gran # (Auto) 0.02 (0.01-0.20) K/uL Platelet Estimate Decreased L (Normal) Polychromasia 1+ Tear Drop Cells 1+ POC Sodium 142 (135-144) mmol/L Sodium 141 (136-145) mmol/L POC Potassium 4.1 (3.3-5.0) mmol/L Potassium 4.2 (3.5-5.1) mmol/L POC Chloride 107 (101-112) mmol/L Chloride 111 H (98-107) mmol/L Carbon Dioxide 28 (21-32) mmol/L POC Total CO2 23 L (24-31) mmol/L Anion Gap 2 L (3-11) POC Anion Gap 17.0 (16-25) mmol/L POC BUN 12 (7-18) mg/dl BUN 13 (6-23) mg/dl Creatinine 1.03 (0.6-1.4) mg/dl POC Creatinine 1.2 (0.6-1.3) mg/dl Est Cr Clr Drug Dosing 117.7 ml/min Est GFR ( Amer) 94.3 ml/min Est GFR (Non-Af Amer) 81.4 ml/min BUN/Creatinine Ratio 12.6 (10-20) Glucose 90 (70-99(Fasting)) mg/dl POC Glucose (other) 88 (70-99) mg/dl Calcium 8.8 (8.6-10.3) mg/dl POC Ioniz Calcium Eligio 1.26 (1.12-1.32) mmol/l Total Bilirubin 3.3 H (0.2-1.0) mg/dl AST 53 H (13-39) U/L ALT 34 (7-52) U/L Alkaline Phosphatase 79 (34-104) U/L Total Protein 5.3 L (6.0-8.3) gm/dl Albumin 3.2 L (3.4-5.0) gm/dl Globulin 2.1 L (2.5-4.0) gm/dl Albumin/Globulin Ratio 1.5 (0.9-2) Lipase 95 H (11-82) U/L Diagnostic Findings CT SCAN OF THE ABDOMEN AND PELVIS WITH IV CONTRAST CLINICAL HISTORY: Generalized abdominal pain. COMPARISON STUDY: Abdominal CT dated 10/24/2023. TECHNIQUE: Following the IV administration of 94 cc of Optiray 320, CT scan of the abdomen and pelvis is performed from the lung bases to the proximal femora. Images are reviewed in the axial, sagittal, and coronal planes. IV contrast was administered without complication. A dose lowering technique was utilized adhering to the principles of ALARA. CT DOSE: 1676.25 mGy.cm FINDINGS: Lung bases: The heart is mildly enlarged and without pericardial effusion. There is coronary artery atherosclerosis. The lung bases are clear noting bibasilar scarring/atelectasis. There is a small hiatal hernia. Esophageal varices are noted. Liver: The contrast-enhanced liver is cirrhotic in morphology and heterogeneous in attenuation. There is nodularity of the hepatic surface contour. There is no intrahepatic biliary ductal dilatation. The hepatic veins and portal veins are patent. There are perisplenic and perigastric varices with evidence of a splenorenal shunt. There is recanalization of the periumbilical vein. Caput medusae are observed. Gallbladder: The gallbladder is contracted. The wall appears thickened and edematous, likely related to adjacent hepatocellular disease. Spleen: The spleen is markedly enlarged, measuring 24.6 cm in length. Pancreas: Unremarkable. Adrenal glands: Unremarkable. Kidneys: The contrast enhanced kidneys are normal in size and without hydronephrosis. The kidneys enhance symmetrically. There are 2 left renal cysts which measure up to 1.5 cm. Abdominal vasculature: The abdominal aorta is normal in course and caliber. Bowel: A loop of small bowel is incarcerated within an umbilical hernia. The upstream small bowel is dilated and fluid-filled measuring up to 4.8 cm diameter. The distal small bowel is decompressed, and findings are consistent with a high-grade obstruction. No thick-walled bowel loops are identified. There is no pneumatosis intestinalis or portal venous gas. Mild fecal retention is seen throughout the colon. The appendix is well-visualized and normal. Peritoneum: No intraperitoneal free air is seen. There is trace pelvic ascites. There is a large helical hernia which contains fat, bowel, and fluid. See above. Lymphadenopathy: None. Pelvic viscera: The bladder, prostate, and seminal vesicles are normal as visualized. Skeletal structures: No lytic or blastic lesions are seen. Sclerotic change is noted in the sacroiliac joints. IMPRESSION: 1. High-grade small bowel obstruction secondary to an incarcerated loop of small bowel contained within an umbilical hernia. 2. No intraperitoneal free air is seen. No focally thick-walled bowel loops are identified, and there is no pneumatosis intestinalis or portal venous gas. 3. Trace pelvic ascites. 4. Cirrhotic liver morphology. 5. There are stigmata of portal hypertension including marked splenomegaly, esophageal varices, upper abdominal varices, a splenorenal shunt, recanalization of the periumbilical vein, and caput medusae. 6. Additional findings as above. (2) Esophageal varices Esophageal varices type: secondary Esophageal varices bleeding: without bleeding Qualified Code(s): I85.10 - Secondary esophageal varices without bleeding (4) Cirrhosis Hepatic cirrhosis type: unspecified hepatic cirrhosis Ascites presence: with ascites Qualified Code(s): K74.60 - Unspecified cirrhosis of liver; R18.8 - Other ascites
[2023-11-02] MEDS: ONDANSETRON INJ 2 MG/ML 2 ML VIAL IV STA (16:39)
[2023-11-02] MEDS: SODIUM CHLORIDE 0.9% 1,000 ML IV ONE (16:39)
[2023-11-02] MEDS: MoRPHine SULFATE 2 MG/ML CARP IV STA (16:40)
--- NOTE | 2023-11-02 17:02 | History & Physical Report ---
Date of Service November 02, 2023 Assessment & Plan (1) Umbilical hernia with obstruction: (2) Cirrhosis: (3) Pancytopenia: (4) Portal hypertension: (5) Esophageal varices: (6) HTN (hypertension): Plan This is a 53 year old male with PMH cirrhosis due to alpha-1 antitrypsin deficiency and fatty liver disease, splenomegaly, esophageal varices, portal hypertension, chronic pancytopenia, HTN, vitamin D deficiency presented to ER 2/2 abd pain. --CT a/p:High-grade small bowel obstruction secondary to an incarcerated loop of small bowel contained within an umbilical hernia.2. No intraperitoneal free air is seen. No focally thick-walled bowel loops are identified, and there is no pneumatosis intestinalis or portal venous gas.3. Trace pelvic ascites.4. Cirrhotic liver morphology.5. There are stigmata of portal hypertension including marked splenomegaly, esophageal varices, upper abdominal varices, a splenorenal shunt, recanalization of the periumbilical vein, and caput medusae.6. Additional findings as above. Incarcerated umbilical hernia w/ obstruction s/p manual reduction by general surgeon in ED High grade bowel obstruction admit to [facility] NPO for bowel rest gentle IVF x 1L - cautious fluids in setting of edema general surgery on board who is planning to set him up with hernia specialist at [facility] prn analgesia, senna s bid Cirrhosis 2/2 alpha-1antitrypsin, DIAS Splenomegaly, Esophageal varices Portal HTN follows [facility] - was recently evaluated by transplant clinic no H/E. continue nadolol Chronic Pancytopenia follow cbc, no indication for transfusions at thus time previously b12/folate levels normal, Iron low therefore on supplement neutropenic precautions had BM bx in August that showed hypercellular marrow, absent iron stores and erythroid hyperplasia HTN: chronic, stable, hold lisinopril/hctz for today, resume as able DVT ppx: none in setting of thrombocytopenia FULL CODE PCP: Suzanne Alex Dispo: admit to [facility] to monitor for recurrence of incarceration, surgery to assist with dispo/follow up Pt was seen and examined in collaboration with Dr. Perez, please see addendum A total of 62 minutes was spent coordinating, documenting, and providing care for this patient excluding time spent in the performance of separately billed services. This included personally viewing all current laboratories and imaging studies, medication reconciliation, outpatient chart review, and discussion with specialists. History of Present Illness Chief Complaint: Periumbilical abdominal pain x 1 day. Primary Care Provider: Suzanne Alex, GUSTAVO This is a 53 year old male with PMH cirrhosis due to alpha-1 antitrypsin deficiency and fatty liver disease, splenomegaly, esophageal varices, portal hypertension, chronic pancytopenia, HTN, vitamin D deficiency presented to ER 2/2 abd pain. Of significance he was recently hospitalized 10/23-10/24 2/2 similar episode with incarcerated umbilical hernia that was reduced by general surgery in the ED. He has been unable to have repairted due to thrombocytopenia and increased risk of complication with cirrhosis. After reduction of hernia his diet was gradually advanced and he was discharged to home. Pt reports his belly button hernia popped out again today and he could not get it back in; therefore he came back to ED. He states he has had this hernia since 2018. He reports today he was getting out of the shower he was feeling pain. He tried to get it back in but was unsuccessful. He reports pain was sharp. He denies any recent fever, chills, sweats, chest pain, sob, n/v/d. He has been off work for the past few months so he has not been lifting anything heavy. 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 He last bowel movement was today. He denies any f/c/s, chest pain, sob, n/v/d. He has not passed any gas since the reduction, but the pain has subsided. He denies any easy bruising or bleeding despite platelet count. In ED pt remained hemodynamically stable. CBC revealed a chronic pancytopenia with plt 28, h/h 12.9 and 38 respectively. CTA revealed high grade SBO in setting of incarcerated hernia. Allergies Allergy/AdvReac Type Severity Reaction Status Date / Time amoxicillin Allergy Intermediate RASH Verified 11/02/23 16:25 adhesive tape Allergy Unknown "may have Unverified 11/02/23 16:25 allergy to tape; had hives" Home Medications Medication Instructions Recorded Confirmed Type acetaminophen 500 mg tablet 1,000 mg PO Q6H PRN Pain 09/10/22 11/02/23 History (Tylenol Extra Strength) ammonium lactate 12 % topical cream 1 applic topical BID PRN Other 09/10/22 11/02/23 History nadolol 20 mg tablet 20 mg PO QAM 09/10/22 11/02/23 History omeprazole 20 mg capsule,delayed 20 mg PO QAM 09/10/22 11/02/23 History release lisinopril 20 1 tab PO QAM 08/26/23 11/02/23 History mg-hydrochlorothiazide 12.5 mg tablet ferrous sulfate 325 mg (65 mg 325 mg PO QAM #30 tabs 08/30/23 11/02/23 Rx iron) tablet,delayed release copper 8 mg PO QAM 10/24/23 11/02/23 History lactulose 10 gram/15 mL oral 30 ml PO TID PRN Other 10/24/23 11/02/23 History solution multivitamin 1 tab PO QAM 10/24/23 11/02/23 History cholecalciferol (vitamin D3) 25 25 mcg PO QAM 11/02/23 11/02/23 History mcg (1,000 unit) tablet (Vitamin D3) Past Med/Surg History Problem List (Updated 11/02/23 @ 18:35 by Sp Potter DO) Small bowel obstruction (Acute) Incarcerated umbilical hernia (Acute) Umbilical hernia with obstruction (Acute) Encounter for pre-operative examination Edema Splenomegaly Esophageal varices Portal hypertension (Acute) Cirrhosis (Acute) Neutropenia (Acute) Umbilical hernia Thrombocytopenia (Acute) HTN (hypertension) Medical History Mild tricuspid regurgitation Mild mitral regurgitation Pancytopenia Ventral hernia Surgical History History of colonoscopy History of esophagogastroduodenoscopy (EGD) Family History Grandfather (Paternal) Cancer Social History Smoking Status: Never smoker Hx Alcohol Use: No Hx Substance Use: No Preferred Language: Malay Communication Ability: Effective 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 Perez addendum for physical exam findings. Results & Data Results & Data Vital Signs (Past 12 Hours) Vital Signs Temp Pulse Pulse Resp BP BP Pulse Ox 11/02/23 15:43 67 11/02/23 15:02 63 20 95 11/02/23 15:02 36.5 C 64 20 119/65 98 11/02/23 14:40 36.6 C 66 18 144/83 H 98 O2 Del Method 11/02/23 15:43 11/02/23 15:02 Room Air 11/02/23 15:02 Room Air 11/02/23 14:40 Room Air Laboratory Results I have independently reviewed and interpreted patient's admitting labs including CBC, CMP, lactate, lipase Diagnostic Findings Abdomen/Pelvis CT 11/02/23 14:53 CT SCAN OF THE ABDOMEN AND PELVIS WITH IV CONTRAST CLINICAL HISTORY: Generalized abdominal pain. COMPARISON STUDY: Abdominal CT dated 10/24/2023. TECHNIQUE: Following the IV administration of 94 cc of Optiray 320, CT scan of the abdomen and pelvis is performed from the lung bases to the proximal femora. Images are reviewed in the axial, sagittal, and coronal planes. IV contrast was administered without complication. A dose lowering technique was utilized adhering to the principles of ALARA. CT DOSE: 1676.25 mGy.cm FINDINGS: Lung bases: The heart is mildly enlarged and without pericardial effusion. There is coronary artery atherosclerosis. The lung bases are clear noting bibasilar scarring/atelectasis. There is a small hiatal hernia. Esophageal varices are noted. Liver: The contrast-enhanced liver is cirrhotic in morphology and heterogeneous in attenuation. There is nodularity of the hepatic surface contour. There is no intrahepatic biliary ductal dilatation. The hepatic veins and portal veins are patent. There are perisplenic and perigastric varices with evidence of a splenorenal shunt. There is recanalization of the periumbilical vein. Caput medusae are observed. Gallbladder: The gallbladder is contracted. The wall appears thickened and edematous, likely related to adjacent hepatocellular disease. Spleen: The spleen is markedly enlarged, measuring 24.6 cm in length. Pancreas: Unremarkable. Adrenal glands: Unremarkable. Kidneys: The contrast enhanced kidneys are normal in size and without hydronephrosis. The kidneys enhance symmetrically. There are 2 left renal cysts which measure up to 1.5 cm. Abdominal vasculature: The abdominal aorta is normal in course and caliber. Bowel: A loop of small bowel is incarcerated within an umbilical hernia. The upstream small bowel is dilated and fluid-filled measuring up to 4.8 cm diameter. The distal small bowel is decompressed, and findings are consistent with a high-grade obstruction. No thick-walled bowel loops are identified. There is no pneumatosis intestinalis or portal venous gas. Mild fecal retention is seen throughout the colon. The appendix is well-visualized and normal. Peritoneum: No intraperitoneal free air is seen. There is trace pelvic ascites. There is a large helical hernia which contains fat, bowel, and fluid. See above. Lymphadenopathy: None. Pelvic viscera: The bladder, prostate, and seminal vesicles are normal as visualized. Skeletal structures: No lytic or blastic lesions are seen. Sclerotic change is noted in the sacroiliac joints. IMPRESSION: 1. High-grade small bowel obstruction secondary to an incarcerated loop of small bowel contained within an umbilical hernia. 2. No intraperitoneal free air is seen. No focally thick-walled bowel loops are identified, and there is no pneumatosis intestinalis or portal venous gas. 3. Trace pelvic ascites. 4. Cirrhotic liver morphology. 5. There are stigmata of portal hypertension including marked splenomegaly, esophageal varices, upper abdominal varices, a splenorenal shunt, recanalization of the periumbilical vein, and caput medusae. 6. Additional findings as above. ACT 112: Negative or not required by law. Electronically signed by: Ross Rae M.D. 11/02/2023 3:58 PM Medications Administered Medication List Discontinued Medications Sodium Chloride (Nss) 1,000 mls @ 999 mls/hr IV .Q1H1M ONE Stop: 11/02/23 16:59 Last Admin: 11/02/23 16:39 Dose: 999 mls/hr Documented By: [facility] Ioversol (Optiray 320 100ml) 94 ml IV ONCE ONE Stop: 11/02/23 15:19 Last Admin: 11/02/23 15:13 Dose: 94 ml Documented By: BRM Morphine Sulfate (Morphine Sulfate 2 Mg/Ml Carp) 2 mg IV NOW STA Stop: 11/02/23 16:03 Last Admin: 11/02/23 16:40 Dose: 2 mg Documented By: NICHOLAS Ondansetron HCl (Ondansetron Inj 2 Mg/Ml 2 Ml Vial) 4 mg IV NOW STA Stop: 11/02/23 16:03 Last Admin: 11/02/23 16:39 Dose: 4 mg Documented By: [facility] Code Status & VTE Plan Code Status FULL CODE VTE Prophylaxis Plan VTE Prophylaxis will be ordered: No Reason for no VTE drug order: Clinical trial participant Supervising Physician Co-Signing Physician Notes Patient is a 53-year-old male with history of cirrhosis, pancytopenia, portal hypertension, esophageal varices and other medical problems presents with sudden onset of periumbilical abdominal pain. Patient was recently hospitalized for incarcerated umbilical hernia which was treated conservatively. Patient states having similar pain today which brought him to ED for further evaluation. Patient was evaluated by surgery in ED and his hernia was manually reduced and currently his chest pain resolved. Please review HPI for complete details of presentation. I personally reviewed blood work and imaging studies. Noted pancytopenia, elevated INR, mild elevation of lipase 95. Physical Exam: Vitals signs as noted above General Appearance: Obese, no apparent distress Head: normocephalic, Atraumatic Eyes: normal inspection, EOMI Neck: supple, Trachea midline Respiratory/Chest: Normal breath sounds, CTA, No accessory muscle use Cardiovascular: S1, S2, No murmur Abdomen/GI:Soft, Non tender,+ umbilical hernia, protuberant, bowel sounds present Extremities/Musculoskeletal:normal inspection, 2+ lower extremity edema, chronic venous stasis changes Neurologic/Psych:AAOX3, grossly no focal neurological deficits Skin: normal color, warm Incarcerated umbilical hernia with obstruction S/P manual reduction N.p.o. for now, gentle IV fluids Pain control as needed Surgery consulted Monitor CBC for pancytopenia Will repeat KUB tomorrow I personally interviewed and examined at bedside. Patient's care is coordinated with Park Voss PA-C. I have reviewed the advanced practitioner's documentation, and I agree with plan of care. Please refer to the documentation above for details of patient's presentation and for discussion of other issues. I spent a total [id number] coordinating, documenting, and providing care for this patient excluding time spent in the performance of separately billed services. (2) Cirrhosis Ascites presence: with ascites Hepatic cirrhosis type: unspecified hepatic cirrhosis Qualified Code(s): K74.60 - Unspecified cirrhosis of liver; R18.8 - Other ascites (5) Esophageal varices Esophageal varices bleeding: without bleeding Esophageal varices type: seco ndary Qualified Code(s): I85.10 - Secondary esophageal varices without bleeding (6) HTN (hypertension) Hypertension type: unspecified Qualified Code(s): I10 - Essential (primary) hypertension
[2023-11-02] MEDS ORDERED: MoRPHine SULFATE 4 MG/ML 1 ML CARP\\VIAL IV PRN ×2 (18:24→18:30)
[2023-11-02] MEDS ORDERED: ACETAMINOPHEN 1,000 MG/100 ML VIAL IV PRN (18:24)
[2023-11-02] MEDS ORDERED: FAMOTIDINE 20 MG TAB PO PRN (18:24)
[2023-11-02] MEDS: LACTATED RINGER'S 1,000 ML IV SCH (19:41)
[2023-11-02] MEDS ORDERED: MELATONIN 3 MG TAB PO PRN (21:00)
[2023-11-02] MEDS: DOCUSATE SODIUM/SENNA 50/8.6MG TAB PO SCH (21:36)
[2023-11-02 22:15] LABS: Appearance Urine Clear (Clear); Bilirubin Urine Negative (Negative); Blood Urine Negative (Negative); Color Urine Yellow; Glucose Urine UA Negative (Negative); Ketones Urine Negative (Negative); Leukocyte Esterase Urine Negative (Negative); Nitrite Urine Negative (Negative); Protein Urine Negative (Negative); Specific Gravity Urine 1.035 (1.000-1.030); Urobilinogen Urine Negative (Negative)
--- OUTSIDE RECORDS SUMMARY | 2023-11-03 04:42 | External Medical Summary ---
Author Name Unknown Address Unknown Organization [id number]:[facility] [place] [address] [facility] [address] Laboratory Report Ordering Provider Test Date Status ANNIA DYER 10/31/2023 15:46:45 Final Observation Date Value Abnormality Reference (Units ) Status HbA1C 10/31/2023 15:46:45 4.1 4.0-5.6 (% ) Final The use of HbA1c to monitor glycemic status is based on normal hemoglobin and HbA composition. This test should not be used in patients with abnormal hemoglobin that affects the half life of the red blood cell or the in vivo glycation rates. Glucose, estimated average 10/31/2023 15:46:45 71 <126 (mg/dL) Final Performing Location [facility] [place] [facility] [address] [facility] [address]
--- OUTSIDE RECORDS SUMMARY | 2023-11-03 04:42 | External Medical Summary ---
Author Name Unknown Address Unknown Organization [id number]:[facility] [place] [address] [place] [address] [place] [address] Laboratory Report Ordering Provider Test Date Status CRUZ DYERVIN 10/31/2023 15:46:45 Final Observation Date Value Abnormality Reference (Units ) Status Hep A, IgG and/or IgM 10/31/2023 15:46:45 Positive Abnormal Negative Final Performing Location LABORATORY [facility] - [address] [facility] [address]
--- OUTSIDE RECORDS SUMMARY | 2023-11-03 04:42 | External Medical Summary ---
Author Name Unknown Address Unknown Organization [id number]:[facility] [place] [address] [place] [address] Laboratory Report Ordering Provider Test Date Status ANNIA DYER 10/31/2023 15:46:45 Final Warfarin Therapy
INR: 2 .0-3.0 conventional anticoagulation
INR: 2.5- 3.5 high intensity anticoagulation Observation Date Value Abnormality Reference (Units ) Status PT 10/31/2023 15:46:45 20.4 Above high normal 11 .6-15.2 (seconds) Final INR 10/31/2023 15:46:45 1.7 Above high normal 0. 8-1.2 Final Performing Location [facility] [place] [address] [place] [address]
--- OUTSIDE RECORDS SUMMARY | 2023-11-03 04:42 | External Medical Summary ---
Author Name Unknown Address Unknown Organization [id number]:[facility]ATORY [place] [address] [place] [address] Laboratory Report Ordering Provider Test Date Status ANNIA DYER 10/31/2023 15:46:45 Final Observation Date Value Abnormality Reference (Units) Status Hepatitis B virus surface Ab [Units/volume] in Serum or Plasma by Immunoassay 10/31/2023 15:46:45 655.0 (mIU/mL) Final Hepatitis B virus surface Ab [Presence] in Serum by Immunoassay 10/31/2023 15:46:45 Positive Final HEPATITIS B SURFACE ANTIBODY, INTERPRETATION 10/31/2023 15:46:45 Immune to Hepatitis B Virus Final POSITIVE: >=11.5 mIU/mL
INDETERMINATE: 8.5-<11.5 mIU/mL
NEGATIVE: <8.5 mIU/mL Performing Location LAB[facility]ATORY [place] [address] [place] [address]
--- OUTSIDE RECORDS SUMMARY | 2023-11-03 04:42 | External Medical Summary | Summary of Care ---
Author Name Unknown Organization [facility] Address [address] [place] [address] Phone [phone] Care Team Providers Care Supervisor Hand Silvering Name Role Phone Suzanne Alex Primary Care Provi lorenza Reason for Visit * Reason Comments Outpatient Testing Encounter Details Date Type Department Care Team (Late st Contact Info) Description 10/31/2023 2:00 PM EDT Laboratory Outpatient Laboratory, [facility] [address] [place] [address] [facility] [address] [place] [address] Other cirrhosis of liver (HCC); Pre-transplant evaluation for chronic liver disease Allergies Active Allergy Reactions Criticality Noted Date Comments Adhesive Tape Hives 10/31/2023 Amoxicillin Medium 09/13/2012 Rash documented as of this encounter (statuses as of 10/31/2023) Medications Medication Sig Dispensed Refills Start Date End Date Status Multiple Vitamins-Minerals (MULTIVITAL) chewable tablet Take 1 Tablet by mouth in the morning. Active Nadolol 20 MG Oral Tablet (Corgard) Take 1 Tablet by mouth in the morning. 30 Tablet 3 06/01/2022 Active Ammonium Lactate 12 % External CreamIndications:De rmatitis Apply to affected area once or twice a day 385 g 3 07/13/2023 Active Omeprazole 20 MG Oral Capsule Delayed Release (PriLOSEC)Indicatio ns:Dysphagia, unspecified type Take 1 Capsule by mouth in the morning. 30 Capsule 07/21/2023 Active Lisinopril-hydroCHL OROthiazide 20-12.5 MG Oral Tablet daily. 09/12/2023 Active Acetaminophen 500 MG Oral Tablet (Tylenol) 2 Tablets as needed. 09/10/2022 Active Vitamin D (Ergocalciferol) 1.25 MG (25991 UT) Oral Capsule (Drisdol) TAKE ONE CAPSULE [...] mL before bedtime. 240 mL 11 09/19/2023 10/31/2023 Active Copper Caps 2 MG Oral Capsule (copper gluconate) Take by mouth daily. Active documented as of this encounter (statuses as of 10/31/2023) Active Problems Problem Noted Date Diagnosed Date [...] as of this encounter (statuses as of 10/31/2023) Resolved Problems Problem Noted Date Diagnosed Date Resolved Date Constipation 05/24/2001 06/27/2008 Overview: ICD-10 update of inactive term CHEST WALL PAIN, LEFT 02/10/20002000 Unspecified viral infection, in conditions classified elsewhere and of unspecified site 02/10/2000 07/12/2000 ACUTE PHARYNGITIS 02/10/2000 07/12/2000 Cough 02/10/2000 07/12/2000 documented as of this encounter (statuses as of 10/31/2023) Immunizations Name Administration Dates Next Due Diptheria/Tetanus [...] of this encounter Plan of Treatment Scheduled Orders Name Type Priority Associated Diagnoses Orde r Schedule HEPATITIS C ANTIBODY Lab Routine Other cirrhosis of liver (HCC) Pre-transplant evaluation for chronic liver disease Ordered: 10/31/2023 HEPATITIS C RNA ADD ON Lab Routine Other cirrhosis of liver (HCC) Pre-transplant evaluation for chronic liver disease Ordered: 10/31/2023 CBC Lab Routine Other cirrhosis of liver (HCC) Pre-transplant evaluation for chronic liver disease Ordered: 10/31/2023 DIFFERENTIAL, AUTOMATED Lab Routine Other cirrhosis of liver (HCC) Pre-transplant evaluation for chronic liver disease Ordered: 10/31/2023 Scheduled Procedures Name Priority Associated Diagnoses Date/Ti [...] this encounter Medical Devices Implanted Type Area Electronic Technologist Device Identifier Shelf Expiration Date Model / Serial / Lot Clip Quick 2.8mm 230cm - [id number] Implanted:Qty: 1 on 05/03/2022 by Abi Gonzalez DO at ENDOSCOPY [facility] [employer] 09/06/2024 [id number] / [id number] documented as of this encounter Visit Diagnoses Diagnosis Other cirrhosis of liver (HCC) Pre-transplant evaluation for chronic liver disease Other specified pre-operative examination documented in this encounter Care Teams Supervisor Hand Silvering Relationship Specialty Start Date End Date Suzanne Alex CRNP [address] [address] PCP - General Nurse Practitioner 09/19/23 documented as of this encounter
--- OUTSIDE RECORDS SUMMARY | 2023-11-03 04:42 | External Medical Summary ---
Author Name Unknown Address Unknown Organization K01:[facility] [place] - [address] [facility] [address] Laboratory Report Ordering Provider Test Date Status ANNIA DYER 10/31/2023 15:46:45 Final Observation Date Value Abnormality Reference (Units ) Status Hep B surface Ag 10/31/2023 15:46:45 Negative Neg ative Final Performing Location [facility]ATORY [facility] - [address] [facility] [address]
--- OUTSIDE RECORDS SUMMARY | 2023-11-03 04:42 | External Medical Summary ---
Author Name Unknown Address Unknown Organization K01:[facility]ATORY [facility] - [address] [place] [address] Laboratory Report Ordering Provider Test Date Status ANNIA DYER 10/31/2023 15:46:45 Final Observation Date Value Abnormality Reference (Units ) Status T4, Free 10/31/2023 15:46:45 1.1 0.9-1.7 (n g/dL) Final Performing Location LAB[facility]ATORY [facility] - [address] [place] [address]
--- OUTSIDE RECORDS SUMMARY | 2023-11-03 04:42 | External Medical Summary ---
Author Name Unknown Address Unknown Organization K01[place] [place] [facility] [address] [facility] [address] Laboratory Report Ordering Provider Test Date Status ANNIA DYER 10/31/2023 15:46:45 Final Cutoff Concentrations:
Drug Level
Amphetamines 500 ng/mL
Benzodiazepines 100 ng/mL
Cannabinoids 50 ng/mL
Cocaine Metabolite 150 ng/mL
Fentanyl 1 ng/mL
Hydrocodone / Hydromorphone 300 ng/mL
Methadone Metabolite 100 ng/mL
Morphine / Codeine 300 ng/mL
Oxycodone / Oxymorphone 100 ng/mL

Screening results are presumptive and can only be used for medical purposes. Positive screening results are reflexed to confirmatory testing. Observation Date Value Abnormality Reference (Units ) Status Amphetamines, Urine screen 10/31/2023 15:46:45 Negative Negative Final Benzodiazepines, Urine screen 10/31/2023 15:46:45 Negative Negative Final Cannabinoids, Urine screen 10/31/2023 15:46:45 Negative Negative Final Cocaine Metabolite, Urine screen 10/31/2023 15:46:45 Negative Negative Final fentaNYL [Presence] in Urine by Screen method 10/31/2023 15:46:45 Negative Negative Final HYDROcodone [Presence] in Urine by Screen method 10/31/2023 15:46:45 Negative Negative Final 5-Ogbhiqfeor-5,5-Dimeth yl-3,3-Diphenylpyrrolid ine (EDDP) [Presence] in Urine 10/31/2023 15:46:45 Negative Negative Final Opiates, Urine screen 10/31/2023 15:46:45 Negative Negative Final oxyCODONE [Presence] in Urine by Screen method 10/31/2023 15:46:45 Negative Negative Final Performing Location [facility] [place] [address] [facility] [address]
--- OUTSIDE RECORDS SUMMARY | 2023-11-03 04:42 | External Medical Summary | Summary of Care ---
Author Name Unknown Organization [facility] Address [address] [place] [address] Phone [phone] Care Team Providers Care Parts Counter Sales Person Name Role Phone Suzanne Alex Primary Care Provi lorenza Encounter Details Date Type Department Care Team (Latest Contact Info) Description 10/31/2023 2:30 PM EDT - 10/31/2023 11:59 PM EDT Hospital Encounter Radiology, [place] [address] [place] [address] Arrived Discharge Disposition: Home - Self Care Allergies Active Allergy Reactions Criticality Noted Date Comments Adhesive Tape Hives 10/31/2023 Amoxicillin Medium 09/13/2012 Rash documented as of this encounter (statuses as of 11/01/2023) Medications Medication Sig Dispensed Refills Start Date End Date Status Multiple Vitamins-Minerals (MULTIVITAL) chewable tablet Take 1 Tablet by mouth in the morning. Active Nadolol 20 MG Oral Tablet (Corgard) Take 1 Tablet by mouth in the morning. 30 Tablet 3 06/01/2022 Active Ammonium Lactate 12 % External CreamIndications:Lorenza matitis Apply to affected area once or twice a day 385 g 3 07/13/2023 Active Omeprazole 20 MG Oral Capsule Delayed Release (PriLOSEC)Indication s:Dysphagia, unspecified type Take 1 Capsule by mouth in the morning. 30 Capsule 07/21/2023 Active Lisinopril-hydroCHLO ROthiazide 20-12.5 MG Oral Tablet daily. 09/12/2023 Active Acetaminophen 500 MG Oral Tablet (Tylenol) 2 Tablets as needed. 09/10/2022 Active Vitamin D (Ergocalciferol) 1.25 MG (96634 UT) Oral Capsule (Drisdol) TAKE ONE CAPSULE BY MOUTH ONCE A WEEK FOR 8 WEEKS. 08/23/2023 Active FeroSul 325 (65 Fe) MG Oral Tablet Take 1 Tablet by mouth in the morning. In the morning.. 08/30/2023 Active Copper Caps 2 MG Oral Capsule (copper gluconate) Take by mouth daily. Active documented as of this encounter (statuses as of 11/01/2023) Active Problems Problem Noted Date Diagnosed Date [...] as of this encounter (statuses as of 11/01/2023) Resolved Problems Problem Noted Date Diagnosed Date Resolved Date Constipation 05/24/2001 06/27/2008 Overview: ICD-10 update of inactive term CHEST WALL PAIN, LEFT 02/10/20002000 Unspecified viral infection, in conditions classified elsewhere and of unspecified site 02/10/2000 07/12/2000 ACUTE PHARYNGITIS 02/10/2000 07/12/2000 Cough 02/10/2000 07/12/2000 documented as of this encounter (statuses as of 11/01/2023) Immunizations Name Administration Dates Next Due Diptheria/Tetanus [...] as of this encounter Plan of Treatment Pending Results Name Type Priority Associated Diagnoses Date /Time XR CHEST 2 VIEWS Medical Imaging Routine Other cirrhosis of liver (HCC) Pre-transplant evaluation for chronic liver disease 10/31/2023 4:03 PM EDT Scheduled Procedures Name Priority Associated Diagnoses Date/Ti [...] Additional history exists Colorectal Cancer Screening 05/03/2025 Diabetes Screening 10/30/2026 10/31/2023, 0 10/31/2023, 09/19/2023, Additional history exists Lipid Panel 10/30/2028 10/31/2023, 04/1 10/2020, 11/09/2018, Additional history exists HPV (Gardasil) Vaccine Aged Out No lo nger eligible based on patient's age to complete this topic MENINGOCOCCAL (MENACTRA/MENVEO) Aged Out No longer eligible based on patient's age to complete this topic documented as of this encounter Medical Devices Implanted Type Area Nail Sticker Device Identifier Shelf Expiration Date Model / Serial / Lot Clip Quick 2.8mm 230cm - [id number] Implanted:Qty: 1 on 05/03/2022 by Abi Gonzalez DO at END[facility] Colon [employer] 09/06/2024 [id number] / / [id number] documented as of this encounter Care Teams Parts Counter Sales Person Relationship Specialty Start Date End Date Suzanne Alex CRNP [address] [facility] [address] [place] [address] PCP - General Nurse Practitioner 09/19/23 documented as of this encounter
--- OUTSIDE RECORDS SUMMARY | 2023-11-03 04:42 | External Medical Summary ---
Author Name Unknown Address Unknown Organization [id number]:LABORATORY [facility] [place] - [facility] [address] Laboratory Report Ordering Provider Test Date Status ANNIA DYER 10/31/2023 15:46:45 Final Observation Date Value Abnormality Reference (Units ) Status WBC, Total 10/31/2023 15:46:45 2.12 Below low normal 4.00-10.80 (K/uL) Final RBC 10/31/2023 15:46:45 3.91 4.50-5.25 (M/uL) Final Hemoglobin 10/31/2023 15:46:45 13.1 Below low normal 14.0-16.8 (g/dL) Final HCT 10/31/2023 15:46:45 38.1 Below low normal 40.0-48.4 (%) Final MCV 10/31/2023 15:46:45 97.4 82.0-99.5 (fL) Final MCH 10/31/2023 15:46:45 33.5 27.0-34.0 (pg) Final MCHC 10/31/2023 15:46:45 34.4 32.0-36.0 (g/dL) Final RDW 10/31/2023 15:46:45 17.4 11.5-15.5 (%) Final Platelets 10/31/2023 15:46:45 34 Below low normal 140-400 (K/uL) Final MPV 10/31/2023 15:46:45 11.6 6.6-11.1 (fL) Final Nucleated erythrocytes/100 leukocytes [Ratio] in Blood by Automated count 10/31/2023 15:46:45 0 <=0 (/100 WBCs) Final Performing Location LABORATORY [facility] [place] - [address] [facility] [id number]
--- OUTSIDE RECORDS SUMMARY | 2023-11-03 04:42 | External Medical Summary ---
Author Name Unknown Address Unknown Organization [id number]:LABORATORY [facility] [place] - [address] [facility] [address] Laboratory Report Ordering Provider Test Date Status ANNIA DYER 10/31/2023 15:46:45 Final Observation Date Value Abnormality Reference (Units ) Status BUN 10/31/2023 15:46:45 11 6-20 (mg/dL) Final Creatinine 10/31/2023 15:46:45 1.1 0.6-1.2 (mg/dL) Final Glomerular filtration rate/1.73 sq M.predicted [Volume Rate/Area] in Serum, Plasma or Blood by Creatinine-based formula (CKD-EPI) 10/31/2023 15:46:45 78 >=60 (mL/min) Final eGFR is calculated based on the CKD-EPI 2020 equation. Sodium 10/31/2023 15:46:45 140 135-146 (m mol/L) Final Potassium 10/31/2023 15:46:45 4.0 3.5-5.1 (m mol/L) Final Cl 10/31/2023 15:46:45 109 Above high normal 98 -107 (mmol/L) Final CO2 10/31/2023 15:46:45 21 Below low normal 22- 32 (mmol/L) Final Anion gap 10/31/2023 15:46:45 10 7-15 (mmol /L) Final Glucose 10/31/2023 15:46:45 83 70-120 (mg /dL) Final Albumin 10/31/2023 15:46:45 3.4 Below low normal 3.8 -5.0 (g/dL) Final AST (Aspartate aminotransferase) 10/31/2023 15:46:45 63 Above high normal 10-50 (U/L) Final Alk Phos 10/31/2023 15:46:45 92 35-130 (U/ L) Final Bilirubin, Total 10/31/2023 15:46:45 2.8 Above high no rmal <=1.2 (mg/dL) Final Calcium 10/31/2023 15:46:45 8.6 8.4-10.2 ( mg/dL) Final Protein 10/31/2023 15:46:45 5.4 Below low normal 6.0 -8.3 (g/dL) Final ALT (Alanine aminotransferase) 10/31/2023 15:46:45 39 10-50 (U/L) Danny stubbs Performing Location LABORATORY [facility] [place] - [address] [facility] [address]
--- OUTSIDE RECORDS SUMMARY | 2023-11-03 04:42 | External Medical Summary ---
Author Name Unknown Address Unknown Organization [id number]:[place] [place] [address] [facility] [address] Laboratory Report Ordering Provider Test Date Status ANNIA DYER 10/31/2023 15:46:45 Final Observation Date Value Abnormality Reference (Units ) Status SYNC LEUKOCYTES IN BLOOD BY AUTOMATED COUNT 10/31/2023 15:46:45 2.12 Below low normal 4.00-10.80 (K/uL) Final Segs 10/31/2023 15:46:45 56.7 40.0-75.0 (%) Final Lymphs % 10/31/2023 15:46:45 29.2 18.0-42.0 (%) Final Monos 10/31/2023 15:46:45 6.6 1.0-11.0 (%) Final Eosinophils 10/31/2023 15:46:45 5.2 0.0-6.0 (%) Final Basos 10/31/2023 15:46:45 0.9 0.0-2.0 (%) Final Immature Granulocyte, Percent 10/31/2023 15:46:45 1.4 0.0-2.0 (%) Final Absolute Segs 10/31/2023 15:46:45 1.20 Below low normal 1.80-7.70 (K/uL) Final Lymphs, absolute 10/31/2023 15:46:45 0.62 Below low normal 1.00-4.80 (K/ul) Final Monos, Abs 10/31/2023 15:46:45 0.14 0.00-1.10 (K/uL) Final Eos, Abs 10/31/2023 15:46:45 0.11 0.00-0.70 (K/uL) Final Basos, Abs 10/31/2023 15:46:45 0.02 0.00-0.20 (K/uL) Final Immature Granulocytes, Number 10/31/2023 15:46:45 0.03 0.00-0.20 (K/uL) Final Performing Location [facility] [place] [address] [facility] [address]
--- OUTSIDE RECORDS SUMMARY | 2023-11-03 04:42 | External Medical Summary ---
Author Name Unknown Address Unknown Organization [id number]:[facility]ATORY [facility] - [address] [place] [address] Laboratory Report Ordering Provider Test Date Status ANNIA DYER 10/31/2023 15:46:45 Final Observation Date Value Abnormality Reference (Units ) Status Hep C Ab 10/31/2023 15:46:45 Negative Negative Final Further HCV quantitative nate ting not performed per protocol. Performing Location LABORATORY [facility] - [address] [place] [address]
--- OUTSIDE RECORDS SUMMARY | 2023-11-03 04:42 | External Medical Summary ---
Author Name Unknown Address Unknown Organization [id number]:LABORATORY [facility] [place] - [address] [place] [address] Laboratory Report Ordering Provider Test Date Status ANNIA DYER 10/31/2023 15:46:45 Final Observation Date Value Abnormality Reference (Units ) Status Hepatitis B virus core Ab [Presence] in Serum 10/31/2023 15:46:45 Negative Negative Final Performing Location LABORATORY C - [address] [place] [address]
--- OUTSIDE RECORDS SUMMARY | 2023-11-03 04:42 | External Medical Summary ---
Author Name Unknown Address Unknown Organization [id number]:[facility] - [address] [place] [address] Laboratory Report Ordering Provider Test Date Status ANNIA DYER 10/31/2023 15:46:45 Final Observation Date Value Abnormality Reference (Units ) Status Magnesium 10/31/2023 15:46:45 1.8 1.5-2.6 (m g/dL) Final Performing Location LAB[facility]ATORY [facility] - [address] [place] [address]
--- OUTSIDE RECORDS SUMMARY | 2023-11-03 04:42 | External Medical Summary ---
Author Name Unknown Address Unknown Organization [id number]:[facility]ORY [facility] [place] - [address] [place] [address] Laboratory Report Ordering Provider Test Date Status ANNIA DYER 10/31/2023 15:46:45 Final Observation Date Value Abnormality Reference (Units ) Status Alpha-Fetoprotein 10/31/2023 15:46:45 3.1 0. 0-8.3 (ng/mL) Final Performing Location LABORATORY [facility] [place] - [address] [place] [address]
--- OUTSIDE RECORDS SUMMARY | 2023-11-03 04:42 | External Medical Summary ---
Author Name Unknown Address Unknown Organization [id number]:[facility] [place] [address] [facility] [address] Laboratory Report Ordering Provider Test Date Status ANNIA DYER 10/31/2023 15:46:45 Final Observation Date Value Abnormality Reference (Units ) Status Triglyceride 10/31/2023 15:46:45 79 <=174 ( mg/dL) Final Triglyceride Reference Range s (mg/dL):
<150 Acceptable
150-174 Borderline high
175-499 High
>=500 Very high Cholesterol 10/31/2023 15:46:45 144 <200 (mg /dL) Final Total Cholesterol Reference Ranges (mg/dL):
<200 Desirable
200-239 Borderline high
>=240 High HDL 10/31/2023 15:46:45 48 >39 (mg/dL ) Final HDL Cholesterol Reference Ra nges (mg/dL):
>=60 High (Desirable)
<50 Low (Undesirable) For Females
<40 Low (Undesirable) For Males NON-HDL CHOLESTEROL 10/31/2023 15:46:45 96 <=159 (mg/dL) Final Non-HDL Cholesterol Referenc e Range (mg/dL):
<100 Target level for high risk ASCVD patient
<130 Optimal for general population
130-159 Near optimal for general population
160-189 Borderline High
190-219 High
>=220 Very High LDL, (calculated) 10/31/2023 15:46:45 80 <= 129 (mg/dL) Final LDL Cholesterol Reference Ra nges (mg/dL):
<70 Target level for high risk ASCVD patient
<100 Optimal for general population
100-129 Near optimal for general population
130-159 Borderline high
160-189 High
>=190 Very high Performing Location [facility]ORY [facility] [place] - [address] [facility] [address]
--- OUTSIDE RECORDS SUMMARY | 2023-11-03 04:42 | External Medical Summary ---
Author Name Unknown Address Unknown Organization [id number]:LABORATORY [facility] - [address] [facility] [address] Laboratory Report Ordering Provider Test Date Status ANNIA DYER 10/31/2023 15:46:45 Final Observation Date Value Abnormality Reference (Units ) Status Ethanol 10/31/2023 15:46:45 Negative Negative Final Performing Location LAB[facility]ATORY [facility] - [address] [facility] [address]
--- OUTSIDE RECORDS SUMMARY | 2023-11-03 04:42 | External Medical Summary ---
Author Name Unknown Address Unknown Organization [id number]:LABORATORY [facility] - [address] [place] [address] Laboratory Report Ordering Provider Test Date Status ANNIA DYER 10/31/2023 15:46:45 Final Observation Date Value Abnormality Reference (Units ) Status Phosphate 10/31/2023 15:46:45 3.7 2.5-4.8 (m g/dL) Final Performing Location LAB[facility]ATORY [facility] - [address] [place] [address]
--- OUTSIDE RECORDS SUMMARY | 2023-11-03 04:42 | External Medical Summary ---
Author Name Unknown Address Unknown Organization [id number]:[place] [place] [address] [facility] [address] Laboratory Report Ordering Provider Test Date Status ANNIA DYER 10/31/2023 15:46:45 Final Observation Date Value Abnormality Reference (Units ) Status Color of Urine by Auto 10/31/2023 15:46:45 Yellow Colorless, Light Yellow, Yellow, Dark Yellow Final Clarity, Urine 10/31/2023 15:46:45 Clear Clear Final Glucose [Mass/volume] in Urine by Automated test strip 10/31/2023 15:46:45 Negative Negative (mg/dL) Final Bilirubin.total [Presence] in Urine by Automated test strip 10/31/2023 15:46:45 Negative Negative Final Ketones [Mass/volume] in Urine by Automated test strip 10/31/2023 15:46:45 Negative Negative (mg/dL) Final Specific gravity, Urine 10/31/2023 15:46:45 1.019 1.003-1.030 Final Hemoglobin [Presence] in Urine by Automated test strip 10/31/2023 15:46:45 Negative Negative Final pH, Urine 10/31/2023 15:46:45 6.5 5.0-7.5 (Units) Final Protein [Mass/volume] in Urine by Automated test strip 10/31/2023 15:46:45 Negative Negative (mg/dL) Final Urobilinogen [Mass/volume] in Urine by Automated test strip 10/31/2023 15:46:45 2.0 Abnormal Normal (mg/dL) Final Nitrite [Presence] in Urine by Automated test strip 10/31/2023 15:46:45 Negative Negative Final Leukocyte esterase [Presence] in Urine by Automated test strip 10/31/2023 15:46:45 Negative Negative Final Annotation Comment 10/31/2023 15:46:45 Final Screen negative - Microscopi c not performed. Performing Location [facility] - [address] [facility] [address]
--- OUTSIDE RECORDS SUMMARY | 2023-11-03 04:42 | External Medical Summary ---
Author Name Unknown Address Unknown Organization K01:LABORATORY [place] [address] [facility] [address] Laboratory Report Ordering Provider Test Date Status ANNIA DYER 10/31/2023 15:46:45 Final Observation Date Value Abnormality Reference (Units ) Status HIV 1+2 Ab+HIV1 p24 Ag [Presence] in Serum or Plasma by Immunoassay 10/31/2023 15:46:45 Negative Negative Final Negative HIV-1/2 antigen and antibody screening tset results usually indicate the absence of HIV-1 and HIV-2 infection. However, such negative results do not rule-out acute HIV infection. If acute HIV-1 infection is highly suspected, it is recommended that a specimen be submitted for detection of HIV-1 RNA. Performing Location [facility] [place] [address] [facility] [address]
--- OUTSIDE RECORDS SUMMARY | 2023-11-03 04:42 | External Medical Summary ---
Author Name Unknown Address Unknown Organization [id number]:[facility] [place] - [address] [place] [address] Laboratory Report Ordering Provider Test Date Status ANNIA DYER 10/31/2023 15:46:45 Final Observation Date Value Abnormality Reference (Units ) Status TSH 10/31/2023 15:46:45 2.82 0.27-4.20 (uIU/mL) Final Performing Location [facility] [address] [facility] [address]
--- OUTSIDE RECORDS SUMMARY | 2023-11-03 04:42 | External Medical Summary ---
Author Name Unknown Address Unknown Organization [id number]:[facility] [place] [address] [place] [address] Laboratory Report Ordering Provider Test Date Status ANNIA DYER 10/31/2023 15:46:45 Final Anticoagulation may affect t esting. Refer to [employer] Test Catalog for a list of effects. Observation Date Value Abnormality Reference (Units ) Status aPTT panel - Platelet poor plasma 10/31/2023 15:46:45 49 Above high normal 21-38 (seconds) Final Performing Location LAB[facility] [place] - [address] [place] [address]
--- OUTSIDE RECORDS SUMMARY | 2023-11-03 04:42 | External Medical Summary ---
Author Name Unknown Address Unknown Organization [id number]:[facility] [place] [address] [facility] [address] Laboratory Report Ordering Provider Test Date Status ANNIA DYER 10/31/2023 15:46:45 Final Observation Date Value Abnormality Reference (Units ) Status Reagin Ab [Presence] in Serum by RPR 10/31/2023 15:46:45 Nonreactive Nonreactive Final Performing Location [facility] [place] [address] [facility] [address]
--- OUTSIDE RECORDS SUMMARY | 2023-11-03 04:42 | External Medical Summary ---
Author Name Unknown Address Unknown Organization K01:[facility]ORY [facility] - [address] [place] [address] Laboratory Report Ordering Provider Test Date Status ANNIA DYER 10/31/2023 15:46:45 Final Observation Date Value Abnormality Reference (Units ) Status PSA 10/31/2023 15:46:45 1.36 <3.10 (ng/ mL) Final Performing Location LAB[facility]ATORY [facility] - [address] [place] [address]
[2023-11-03 06:37] LABS: Hematocrit (blood only) 32.6 % (42.0-52.0); Hemoglobin 11.4 g/dl (14.0-18.0); Mean Corpuscular Volume 94.5 fL (80.0-100.0); Mean Platelet Volume 12.1 fL (9.4-12.4); Platelet Count 26 K/uL (130-400); RDW Coefficient of Variation 16.7 % (11.5-14.5); RDW Standard Deviation 57.8 fL (36.4-46.3); Red Blood Count 3.45 M/uL (4.70-6.10); White Blood Count 1.61 K/ul (4.8-10.8)
[2023-11-03 06:53] LABS: INR 1.6 (0.9-1.1); Prothrombin Time 16.7 Seconds (9.0-12.0)
[2023-11-03 06:54] LABS: Albumin Globulin Ratio 1.4 (0.9-2); Albumin Level 2.6 gm/dl (3.4-5.0); BUN Creatinine Ratio 13.9 (10-20); Bilirubin,Total 4.2 mg/dl (0.2-1.0); Calcium 8.5 mg/dl (8.6-10.3); Est GFR (African American) 96.6 ml/min; Est GFR (Non-African American) 83.3 ml/min; Globulin 1.8 gm/dl (2.5-4.0); Magnesium 1.5 mg/dl (1.7-2.4); Total Protein 4.4 gm/dl (6.0-8.3)
[2023-11-03 07:16] LABS: Basophils # (auto) 0.02 K/uL (0.00-0.20); Basophils % (auto) 1.2 %; Eosinophils # (auto) 0.06 K/uL (0.00-0.50); Eosinophils % (auto) 3.7 %; Lymphocytes # (auto) 0.47 K/uL (1.20-3.40); Lymphocytes % (auto) 29.2 %; Monocytes # (auto) 0.15 K/uL (0.11-0.59); Monocytes % (auto) 9.3 %; Neutrophils # (auto) 0.91 K/uL (1.40-6.50); Neutrophils % (auto) 56.6 %; Ovalocytes 1+; Platelet Estimate Signific. Decreased (Normal)
[2023-11-03] MEDS: MULTIVITAMIN TAB PO SCH (07:58)
[2023-11-03] MEDS: PANTOprazole 40 MG TAB PO SCH (07:58)
[2023-11-03] MEDS: nadoloL 40 MG TAB PO SCH (07:58)
[2023-11-03] MEDS: CHOLECALCIFEROL 25 MCG (1000 UNITS) TAB PO SCH (07:59)
[2023-11-03] MEDS: FERROUS SULFATE 325 MG TAB PO SCH (07:59)
--- NOTE | 2023-11-03 08:44 | XRay Report ---
XR KUB/Abdomen 1 view CLINICAL HISTORY: SBO TECHNIQUE: 1 view of the abdomen was obtained. Comparison: Comparison is made to CT abdomen pelvis 11/02/2019 FINDINGS: Lung bases are unremarkable. The osseous structures are grossly unremarkable. Dilated loop of gas-kash led small bowel is noted in the mid pelvis. A moderate amount of stool is noted within the large dony l. IMPRESSION: Findings compatible with small bowel obstruction. ACT 112: Negative or not required by law. Electronically signed by: Perry Dos Santos M.D. 11/03/2023 8:43 AM
[2023-11-03] MEDS: MAGNESIUM OXIDE 400 MG TAB PO SCH (09:28)
--- NOTE | 2023-11-03 11:10 | Surgery Progress Note ---
Date of Service November 03, 2023 Assessment & Plan (1) Umbilical hernia with obstruction: (2) Esophageal varices: (3) Portal hypertension: (4) Cirrhosis: (5) Thrombocytopenia: Plan 53-year-old male with significant medical history of cirrhosis secondary to Harris with portal hypertension, splenomegaly and esophageal varices presenting with incarcerated umbilical hernia containing small bowel resulting in a high-grade small bowel obstruction on CT scan. Hernia was able to be reduced in the emergency department. Given that this hernia has recurred and has been incarcerated a second time in 9 days he needs to have this hernia repaired however he needs to have this repaired at a tertiary center where multiple specialties are involved given his complex medical history. He has significant surgical risks. 11/03/2023 avss no abdominal pain, hernia is reduced, no n,v passing flatus Plan: Can advance to clears then as tolerated if continues to pass gas ambulate wear abdominal binder, will order another one as current one is too small. Advised nurse to connect two binders together or obtain larger one from OR. I have referred patient to gen surg/hernia specialist DR. Castro and appointment made on 11/07/23 at 11:15 am. Appointment put in discharge instru ctions. Dr. Anne has seen and examined patient was able to reduce the hernia in the emergency department. Admission and Anticipated Discharge Date Admission Date: November 02, 2023 Subjective feeling better no abdomina pain no n,v passing gas Wearing abdominal binder but it is small Physical Exam Constitutional: WD/WN, vitals as above + obese, cooperative and comfortable; no acute distress and not ill appearing Respiratory: normal respiratory effort; no respiratory distress Gastrointestinal (Abdomen): Inspection/Auscultation: abdomen normal to inspection and normal bowel sounds; abdomen not distended and no visible herniation Percussion/Palpation: abdomen soft and + hernia (umbilical hernia has stayed reduced); abdomen nontender, no guarding, abdomen not rigid and abdomen not firm Binder in place however too small and no compressing umbilicus Skin: no rashes, warm and dry Psychiatric: Orientation: alert and oriented x 3 Results & Data Vital Signs (Past 12 Hours) Vital Signs Temp Pulse Resp BP Pulse Ox O2 Del Method 11/03/23 07:25 36.6 C 65 16 112/62 96 Room Air 11/03/23 02:54 36.6 C 71 18 109/57 L 95 Room Air Laboratory Results 11/03/23 11/02/23 11/02/23 Range/Units 05:38 22:06 16:23 WBC 1.61 L (4.8-10.8) K/ul RBC 3.45 L (4.70-6.10) M/uL Hgb 11.4 L (14.0-18.0) g/dl POC Hgb (14.0-18.0) g/dl Hct 32.6 L (42.0-52.0) % POC Hct (42-52) % MCV 94.5 (80.0-100.0) fL MCH 33.0 (25.0-34.0) pg MCHC 35.0 (32.0-36.0) g/dL RDW Std Deviation 57.8 H (36.4-46.3) fL RDW Coeff of Eric 16.7 H (11.5-14.5) % Plt Count 26 L* (130-400) K/uL MPV 12.1 (9.4-12.4) fL Immature Gran % (Auto) 0.0 % Neut % (Auto) 56.6 % Lymph % (Auto) 29.2 % Ev[place]eline % (Auto) 9.3 % Eos % (Auto) 3.7 % Baso % (Auto) 1.2 % Neut # (Auto) 0.91 L* (1.40-6.50) K/uL Lymph # (Auto) 0.47 L (1.20-3.40) K/uL [place] # (Auto) 0.15 (0.11-0.59) K/uL Eos # (Auto) 0.06 (0.00-0.50) K/uL Baso # (Auto) 0.02 (0.00-0.20) K/uL Immature Gran # (Auto) 0.00 L (0.01-0.20) K/uL Platelet Estimate Signific. Decreased L (Normal) Polychromasia Tear Drop Cells Ovalocytes 1+ PT 16.7 H (9.0-12.0) Seconds INR 1.6 H (0.9-1.1) POC Sodium (135-144) mmol/L Sodium 139 (136-145) mmol/L POC Potassium (3.3-5.0) mmol/L Potassium 4.0 (3.5-5.1) mmol/L POC Chloride (101-112) mmol/L Chloride 110 H (98-107) mmol/L Carbon Dioxide 24 (21-32) mmol/L POC Total CO2 (24-31) mmol/L Anion Gap 5 (3-11) POC Anion Gap (16-25) mmol/L POC BUN (7-18) mg/dl BUN 14 (6-23) mg/dl Creatinine 1.01 (0.6-1.4) mg/dl POC Creatinine (0.6-1.3) mg/dl Est Cr Clr Drug Dosing 120.0 ml/min Est GFR ( Amer) 96.6 ml/min Est GFR (Non-Af Amer) 83.3 ml/min BUN/Creatinine Ratio 13.9 (10-20) Glucose 66 L (70-99(Fasting)) mg/dl POC Glucose (other) (70-99) mg/dl Lactate 1.1 (0.4-2.0) mmol/L Calcium 8.5 L (8.6-10.3) mg/dl POC Ioniz Calcium Eligio (1.12-1.32) mmol/l Magnesium 1.5 L (1.7-2.4) mg/dl Total Bilirubin 4.2 H (0.2-1.0) mg/dl AST 48 H (13-39) U/L ALT 27 (7-52) U/L Alkaline Phosphatase 67 (34-104) U/L Total Protein 4.4 L (6.0-8.3) gm/dl Albumin 2.6 L (3.4-5.0) gm/dl Globulin 1.8 L (2.5-4.0) gm/dl Albumin/Globulin Ratio 1.4 (0.9-2) Lipase (11-82) U/L Urine Color Yellow Urine Appearance Clear (Clear) Urine pH 7.0 (4.5-7.5) Ur Specific [place] 1.035 H (1.000-1.030) Urine Protein Negative (Negative) Urine Glucose (UA) Negative (Negative) Urine Ketones Negative (Negative) Urine Blood Negative (Negative) Urine Nitrite Negative (Negative) Urine Bilirubin Negative (Negative) Urine Urobilinogen Negative (Negative) Ur Leukocyte Esterase Negative (Negative) Blood Type O Negative Antibody Screen NEGATIVE 11/02/23 11/02/23 Range/Units 15:03 14:55 WBC 1.92 L (4.8-10.8) K/ul RBC 3.96 L (4.70-6.10) M/uL Hgb 12.9 L (14.0-18.0) g/dl POC Hgb 11.9 L (14.0-18.0) g/dl Hct 38.0 L (42.0-52.0) % POC Hct 35 L (42-52) % MCV 96.0 (80.0-100.0) fL MCH 32.6 (25.0-34.0) pg MCHC 33.9 (32.0-36.0) g/dL RDW Std Deviation 59.9 H (36.4-46.3) fL RDW Coeff of Eric 17.0 H (11.5-14.5) % Plt Count 28 L* (130-400) K/uL MPV 12.0 (9.4-12.4) fL Immature Gran % (Auto) 1.0 % Neut % (Auto) 57.9 % Lymph % (Auto) 25.5 % Evangeline % (Auto) 7.8 % Eos % (Auto) 5.7 % Baso % (Auto) 2.1 % Neut # (Auto) 1.11 L (1.40-6.50) K/uL Lymph # (Auto) 0.49 L (1.20-3.40) K/uL [place] # (Auto) 0.15 (0.11-0.59) K/uL Eos # (Auto) 0.11 (0.00-0.50) K/uL Baso # (Auto) 0.04 (0.00-0.20) K/uL Immature Gran # (Auto) 0.02 (0.01-0.20) K/uL Platelet Estimate Decreased L (Normal) Polychromasia 1+ Tear Drop Cells 1+ Ovalocytes PT (9.0-12.0) Seconds INR (0.9-1.1) POC Sodium 142 (135-144) mmol/L Sodium 141 (136-145) mmol/L POC Potassium 4.1 (3.3-5.0) mmol/L Potassium 4.2 (3.5-5.1) mmol/L POC Chloride 107 (101-112) mmol/L Chloride 111 H (98-107) mmol/L Carbon Dioxide 28 (21-32) mmol/L POC Total CO2 23 L (24-31) mmol/L Anion Gap 2 L (3-11) POC Anion Gap 17.0 (16-25) mmol/L POC BUN 12 (7-18) mg/dl BUN 13 (6-23) mg/dl Creatinine 1.03 (0.6-1.4) mg/dl POC Creatinine 1.2 (0.6-1.3) mg/dl Est Cr Clr Drug Dosing 117.7 ml/min Est GFR ( Amer) 94.3 ml/min Est GFR (Non-Af Amer) 81.4 ml/min BUN/Creatinine Ratio 12.6 (10-20) Glucose 90 (70-99(Fasting)) mg/dl POC Glucose (other) 88 (70-99) mg/dl Lactate (0.4-2.0) mmol/L Calcium 8.8 (8.6-10.3) mg/dl POC Ioniz Calcium Eligio 1.26 (1.12-1.32) mmol/l Magnesium (1.7-2.4) mg/dl Total Bilirubin 3.3 H (0.2-1.0) mg/dl AST 53 H (13-39) U/L ALT 34 (7-52) U/L Alkaline Phosphatase 79 (34-104) U/L Total Protein 5.3 L (6.0-8.3) gm/dl Albumin 3.2 L (3.4-5.0) gm/dl Globulin 2.1 L (2.5-4.0) gm/dl Albumin/Globulin Ratio 1.5 (0.9-2) Lipase 95 H (11-82) U/L Urine Color Urine Appearance (Clear) Urine pH (4.5-7.5) Ur Specific [place] (1.000-1.030) Urine Protein (Negative) Urine Glucose (UA) (Negative) Urine Ketones (Negative) Urine Blood (Negative) Urine Nitrite (Negative) Urine Bilirubin (Negative) Urine Urobilinogen (Negative) Ur Leukocyte Esterase (Negative) Blood Type Antibody Screen (2) Esophageal varices Esophageal varices type: secondary Esophageal varices bleeding: without bleeding Qualified Code(s): I85.10 - Secondary esophageal varices without bleeding (4) Cirrhosis Hepatic cirrhosis type: unspecified hepatic cirrhosis Ascites presence: unspecified Qualified Code(s): K74.60 - Unspecified cirrhosis of liver
--- NOTE | 2023-11-03 14:43 | Hospitalist Progress Note ---
Date of Service November 03, 2023 Assessment & Plan (1) Umbilical hernia with obstruction: (2) Cirrhosis: (3) Pancytopenia: (4) Portal hypertension: (5) Esophageal varices: (6) HTN (hypertension): Plan 53 year old male with PMH cirrhosis due to alpha-1 antitrypsin deficiency and fatty liver disease, splenomegaly, esophageal varices, portal hypertension, chronic pancytopenia, HTN, vitamin D deficiency presented to ER 2/2 abd pain. --CT a/p:High-grade small bowel obstruction secondary to an incarcerated loop of small bowel contained within an umbilical hernia.2. No intraperitoneal free air is seen. No focally thick-walled bowel loops are identified, and there is no pneumatosis intestinalis or portal venous gas.3. Trace pelvic ascites.4. Cirrhotic liver morphology.5. There are stigmata of portal hypertension including marked splenomegaly, esophageal varices, upper abdominal varices, a splenorenal shunt, recanalization of the periumbilical vein, and caput medusae.6. Additional findings as above. Incarcerated umbilical hernia w/ obstruction High grade bowel obstruction S/P manual reduction in ER by surgeon Discussed with Surgery team. Recommends starting clears today and advance diet as tolerated Surgery already got appt with Gen surg/hernia specialist Dr Castro at [place] on Tuesday for 11.15AM IVF stopped Monitor diet tolerance Cirrhosis 2/2 alpha-1antitrypsin, DIAS Splenomegaly, Esophageal varices Portal HTN Follows [facility] - was recently evaluated by transplant clinic Continue nadolol Chronic Pancytopenia No indication for transfusions at thus time Neutropenic precautions Had BM bx in August that showed hypercellular marrow, absent iron stores and erythroid hyperplasia Continue ferrous sulfate HTN: Chronic, stable Resume lisinopril/hctz DVT ppx: none in setting of thrombocytopenia. Ambulate FULL CODE PCP: Suzanne Alex I spent a total of 55 minutes coordinating, documenting and providing care for this patient excluding time spent in performance of separately billed services Admission and Anticipated Discharge Date Admission Date: November 02, 2023 Subjective Patient seen and examined Reports abd pain has resolved since hernial reduction Passing flatus. Yet to have a BM Denied all other complaints on ROS Physical Exam Constitutional: + well hydrated; no acute distress Eyes: PERRL, conjunctivae normal, anicteric sclerae ENMT: external ear and nose normal, oropharynx normal Respiratory: normal respiratory effort, lungs clear to auscultation Cardiovascular: Rate/Rhythm: regular rate and regular rhythm Gastrointestinal (Abdomen): Soft, umbilical hernia has been reduced, nontender, has abdominal binder on Musculoskeletal: +pedal edema Neurologic: PERRL, EOMI, accommodation nl, no face palsy, no dysarthria Psychiatric: A+Ox3, euthymic affect Results & Data Results & Data Vital Signs (Past 12 Hours) Vital Signs Temp Pulse Pulse Resp BP Pulse Ox O2 Del Method 11/03/23 12:58 60 11/03/23 11:16 36.8 C 62 18 120/67 98 Room Air 11/03/23 07:25 36.6 C 65 16 112/62 96 Room Air 11/03/23 05:39 63 11/03/23 02:54 36.6 C 71 18 109/57 L 95 Room Air Laboratory Results Abnormal lab results 11/02/23 11/02/23 11/02/23 Range/Units 14:55 15:03 22:06 WBC 1.92 L (4.8-10.8) K/ul RBC 3.96 L (4.70-6.10) M/uL Hgb 12.9 L (14.0-18.0) g/dl POC Hgb 11.9 L (14.0-18.0) g/dl Hct 38.0 L (42.0-52.0) % POC Hct 35 L (42-52) % RDW Std Deviation 59.9 H (36.4-46.3) fL RDW Coeff of Eric 17.0 H (11.5-14.5) % Plt Count 28 L* (130-400) K/uL Neut # (Auto) 1.11 L (1.40-6.50) K/uL Lymph # (Auto) 0.49 L (1.20-3.40) K/uL Immature Gran # (Auto) (0.01-0.20) K/uL Platelet Estimate Decreased L (Normal) PT (9.0-12.0) Seconds INR (0.9-1.1) Chloride 111 H (98-107) mmol/L POC Total CO2 23 L (24-31) mmol/L Anion Gap 2 L (3-11) Glucose (70-99(Fasting)) mg/dl Calcium (8.6-10.3) mg/dl Magnesium (1.7-2.4) mg/dl Total Bilirubin 3.3 H (0.2-1.0) mg/dl AST 53 H (13-39) U/L Total Protein 5.3 L (6.0-8.3) gm/dl Albumin 3.2 L (3.4-5.0) gm/dl Globulin 2.1 L (2.5-4.0) gm/dl Lipase 95 H (11-82) U/L Ur Specific [place] 1.035 H (1.000-1.030) 11/03/23 Range/Units 05:38 WBC 1.61 L (4.8-10.8) K/ul RBC 3.45 L (4.70-6.10) M/uL Hgb 11.4 L (14.0-18.0) g/dl POC Hgb (14.0-18.0) g/dl Hct 32.6 L (42.0-52.0) % POC Hct (42-52) % RDW Std Deviation 57.8 H (36.4-46.3) fL RDW Coeff of Eric 16.7 H (11.5-14.5) % Plt Count 26 L* (130-400) K/uL Neut # (Auto) 0.91 L* (1.40-6.50) K/uL Lymph # (Auto) 0.47 L (1.20-3.40) K/uL Immature Gran # (Auto) 0.00 L (0.01-0.20) K/uL Platelet Estimate Signific. Decreased L (Normal) PT 16.7 H (9.0-12.0) Seconds INR 1.6 H (0.9-1.1) Chloride 110 H (98-107) mmol/L POC Total CO2 (24-31) mmol/L Anion Gap (3-11) Glucose 66 L (70-99(Fasting)) mg/dl Calcium 8.5 L (8.6-10.3) mg/dl Magnesium 1.5 L (1.7-2.4) mg/dl Total Bilirubin 4.2 H (0.2-1.0) mg/dl AST 48 H (13-39) U/L Total Protein 4.4 L (6.0-8.3) gm/dl Albumin 2.6 L (3.4-5.0) gm/dl Globulin 1.8 L (2.5-4.0) gm/dl Lipase (11-82) U/L Ur Specific [place] (1.000-1.030) (2) Cirrhosis Ascites presence: unspecified Hepatic cirrhosis type: unspecified hepatic cirrhosis Qualified Code(s): K74.60 - Unspecified cirrhosis of liver (5) Esophageal varices Esophageal varices bleeding: without bleeding Esophageal varices type: secondary Qualified Code(s): I85.10 - Secondary esophageal varices without bleeding (6) HTN (hypertension) Hypertension type: unspecified Qualified Code(s): I10 - Essential (primary) hypertension
[2023-11-03] MEDS: ACETAMINOPHEN 500 MG TAB PO PRN (21:00)
[2023-11-04 08:10] VITALS: BP 100/59; PULSE 63; RESP 20; TEMP 97.5; O2SAT 94
[2023-11-04] MEDS: LISINOPRIL/HCTZ 20/12.5MG 1 TAB TAB PO SCH (08:33)
[2023-11-04 08:52] LABS: Hematocrit (blood only) 33.9 % (42.0-52.0); Hemoglobin 11.8 g/dl (14.0-18.0); Mean Corpuscular Hemoglobin 32.9 pg (25.0-34.0); Mean Corpuscular Hgb Conc 34.8 g/dL (32.0-36.0); Mean Corpuscular Volume 94.4 fL (80.0-100.0); Mean Platelet Volume 12.1 fL (9.4-12.4); Platelet Count 24 K/uL (130-400); RDW Coefficient of Variation 16.4 % (11.5-14.5); RDW Standard Deviation 57.1 fL (36.4-46.3); Red Blood Count 3.59 M/uL (4.70-6.10); White Blood Count 1.82 K/ul (4.8-10.8)
[2023-11-04 09:51] LABS: BUN Creatinine Ratio 14.6 (10-20); Calcium 8.4 mg/dl (8.6-10.3); Creatinine Clr Calc Pharmacy 115.9 ml/min; Est GFR (African American) 94.3 ml/min; Est GFR (Non-African American) 81.4 ml/min; Magnesium 1.6 mg/dl (1.7-2.4); Potassium 3.8 mmol/L (3.5-5.1)
--- NOTE | 2023-11-04 10:01 | Discharge Summary ---
Date of Service November 04, 2023 Admission HPI Per Admitting Provider This is a 53 year old male with PMH cirrhosis due to alpha-1 antitrypsin deficiency and fatty liver disease, splenomegaly, esophageal varices, portal hypertension, chronic pancytopenia, HTN, vitamin D deficiency presented to ER 2/2 abd pain. Of significance he was recently hospitalized 10/23-10/24 2/2 similar episode with incarcerated umbilical hernia that was reduced by general surgery in the ED. He has been unable to have repairted due to thrombocytopenia and increased risk of complication with cirrhosis. After reduction of hernia his diet was gradually advanced and he was discharged to home. Pt reports his belly button hernia popped out again today and he could not get it back in; therefore he came back to ED. He states he has had this hernia since 2018. He reports today he was getting out of the shower he was feeling pain. He tried to get it back in but was unsuccessful. He reports pain was sharp. He denies any recent fever, chills, sweats, chest pain, sob, n/v/d. He has been off work for the past few months so he has not been lifting anything heavy. 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 He last bowel movement was today. He denies any f/c/s, chest pain, sob, n/v/d. He has not passed any gas since the reduction, but the pain has subsided. He denies any easy bruising or bleeding despite platelet count. In ED pt remained hemodynamically stable. CBC revealed a chronic pancytopenia with plt 28, h/h 12.9 and 38 respectively. CTA revealed high grade SBO in setting of incarcerated hernia. Admission Exam Per Admitting Provider General Appearance: Obese, no apparent distress Head: normocephalic, Atraumatic Eyes: normal inspection, EOMI Neck: supple, Trachea midline Respiratory/Chest: Normal breath sounds, CTA, No accessory muscle use Cardiovascular: S1, S2, No murmur Abdomen/GI:Soft, Non tender,+ umbilical hernia, protuberant, bowel sounds present Extremities/Musculoskeletal:normal inspection, 2+ lower extremity edema, chronic venous stasis changes Neurologic/Psych:AAOX3, grossly no focal neurological deficits Skin: normal color, warm Principal Diagnosis Incarcerated umbilical hernia now reduced Discharge Exam Constitutional + well hydrated; no acute distress Eyes PERRL, conjunctivae normal, anicteric sclerae ENMT external ear and nose normal, oropharynx normal Respiratory normal respiratory effort, lungs clear to auscultation Cardiovascular Rate/Rhythm: regular rate and regular rhythm Gastrointestinal (Abdomen) Soft, umbilical hernia has been reduced, nontender, has abdominal binder on Musculoskeletal Trace pedal edema Neurologic PERRL, EOMI, accommodation nl, no face palsy, no dysarthria Psychiatric A+Ox3, euthymic affect Discharge Data Allergies Allergy/AdvReac Type Severity Reaction Status Date / Time amoxicillin Allergy Intermediate RASH Verified 11/02/23 16:25 adhesive tape Allergy Unknown "may have Unverified 11/02/23 16:25 allergy to tape; had hives" Consultations 11/02/23 15:43 Consult General Surgery Stat 11/02/23 16:23 ED Decision to Admit Stat Ordered Studies 11/02/23 14:53 CT abd pelvis IV con only Stat Hospital Course (1) Umbilical hernia with obstruction: (2) Cirrhosis: (3) Pancytopenia: (4) Portal hypertension: (5) Esophageal varices: (6) HTN (hypertension): Plan 53 year old male with PMH cirrhosis due to alpha-1 antitrypsin deficiency and fatty liver disease, splenomegaly, esophageal varices, portal hypertension, chr onic pancytopenia, HTN, vitamin D deficiency presented to ER 2/2 abd pain. --CT a/p:High-grade small bowel obstruction secondary to an incarcerated loop of small bowel contained within an umbilical hernia.2. No intraperitoneal free air is seen. No focally thick-walled bowel loops are identified, and there is no pneumatosis intestinalis or portal venous gas.3. Trace pelvic ascites.4. Cir rhotic liver morphology.5. There are stigmata of portal hypertension including marked splenomegaly, esophageal varices, upper abdominal varices, a splenorenal shunt, recanalization of the periumbilical vein, and caput medusae.6. Additional findings as above. Incarcerated umbilical hernia w/ obstruction High grade bowel obstruction S/P manual reduction in ER by surgeon Tolerating diet well Surgery already got appt with Gen surg/hernia specialist Dr Castro at [place] on Tuesday for 11.15AM Patient advised to keep the appt Cirrhosis 2/2 alpha-1antitrypsin, DIAS Splenomegaly, Esophageal varices Portal HTN Follows [facility] - was recently evaluated by transplant clinic Continue nadolol Chronic Pancytopenia No indication for transfusions at thus time Neutropenic precautions Had BM bx in August that showed hypercellular marrow, absent iron stores and erythroid hyperplasia Continue ferrous sulfate HTN: Chronic, stable Continue lisinopril/hctz Hypomagnesemia Started on po mag Total Time Total Time Spent Total Time Spent (In Minutes): 35 Total Time Includes: Examination of the Patient, Discharge Planning and Medication Reconciliation Discharge Plan Discharge Items Patient Disposition: Home - Self-Care Reason For Visit: INCARCERATED HERNIA Discharge Diagnosis: Incarcerated umbilical hernia now reduced Activity: Resume your previous activity Non-emergency contact: Primary Care Provider and Surgeon Call non-emergency contact if: you have any medication questions Follow-up/Referrals: Suzanne Alex CNP [Primary Care Provider] - Mikey Blood MD [Outside Practitioners] - 11/09/23 3:00 pm (Date & Time 11/09/2023 3:00 PM Provider Mikey Blood MD Department [facility] ) Gabrielle Castro MD [Outside Practitioners] - 11/07/23 11:15 am (Date & Time 11/07/2023 11:15 AM Provider [facility] Diet: Heart Healthy and Low Sodium (2gm) Addtl Attending Provider Instructions: Mr Damon You presented to the hospital with abdominal pain and found to have recurrent incarcerated umbilical hernia which was reduced by surgeon. Please ensure follow up with Dr Castro on Tuesday as discussed for plans regarding management. It was a pleasure taking care of you. Addtl Cinetechnician Provider Instructions: Surgical recommendations: Please keep abdominal binder on abdomen for compression to prevent recurrent herniation. Avoid any straining, constipation, or any heavy lifting that would increase intra-abdominal pressure Recommend good bowel regimen to avoid any hard stools or straining. Water intake, fiber in diet, and stool softener if needed. We have referred you to General Surgeon/Hernia specialist at [facility] to discuss surgical options of your hernia in light of your other medical conditions. We feel you will need repair of the hernia to prevent recurrent issues with hernia incarceration and bowel obstructions in which emergent surgical intervention would be very risky. Pending Studies at Discharge: No Stand-Alone Forms: My [facility], Smoking Cessation Medications and DC Order Prescriptions: New magnesium oxide 400 mg (241.3 mg magnesium) Tablet 400 mg PO QAM Qty: 30 0RF Continued acetaminophen [Tylenol Extra Strength] 500 mg Tablet 1,000 mg PO Q6H PRN (Reason: Pain) nadolol 20 mg tablet 20 mg PO QAM omeprazole 20 mg capsule,delayed release(DR/EC) 20 mg PO QAM ammonium lactate 12 % cream 1 applic TOPICAL BID PRN (Reason: Other) lisinopril-hydrochlorothiazide 20-12.5 mg tablet 1 tab PO QAM ferrous sulfate 325 mg (65 mg iron) Tablet,Delayed Release (Dr/Ec) 325 mg PO QAM Qty: 30 0RF multivitamin Tablet 1 tab PO QAM lactulose 10 gram/15 mL solution 30 ml PO TID PRN (Reason: Other) copper 8 mg PO QAM cholecalciferol (vitamin D3) [Vitamin D3] 25 mcg (1,000 unit) Tablet 25 mcg PO QAM Discharge Orders: Discharge Order (Routine); Ordered 11/04/23 Ordered By: Abbey Tanner Admission Data Admit Date/Time: 11/02/23 16:55 Attending Provider: Abbey Tanner I. Admit Provider: Mannie Perez Primary Care Provider: Suzanne Alex Other Providers: Adair Anne; Mannie Perez Other Interventions: Discharge Summary Assessment (RN) Last Done: 11/04/23 10:23
== END 2023-11-04 11:25 | disposition home or self-care (01) | DRG 394 ==
LOC: ED 14:24 → SUATTDRO 16:55 → EDINP 16:55 → 2W 18:25